=== PATIENT | male | born 1950 | race Caucasian/White ===

== ENCOUNTER → 2017-06-18 | Outpatient (CLI) | payer BC, OTHER ==
[~2017-06-18] MED LIST: ALEN70TA5; CITA20TA5; DIVA500T9; HYDR-2762; HYDR25TA9; LEVE500T6; LOSA100T6; OMEP20CA9; PROP20TA
--- NOTE | 2017-06-18 12:12 | RAD ---
CT chest Indication: Lung nodule Technique: CT chest without IV contrast with multiplanar reformats. Comparison: CT chest from 02/19/2016. Findings: Heart is normal in size. No pericardial or pleural effusion. Coronary artery calcifications noted. Neck base is clear. No axillary, mediastinal or hilar adenopathy. Breathing motion identified in the lungs limiting optimal evaluation. Calcified granuloma left lower lobe. Stable 3 mm nodule in the right upper lobe (series 3 image 130). Scattered areas of subpleural scarring noted for example (series 3 image 166) in the right middle lobe.. 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 Visualized noncontrast appearance of the spleen, pancreas, gallbladder, adrenal glands and kidneys is within normal limits. Diffuse osteopenia of the bones. Multiple stable compression deformities of the thoracic spine. No suspicious bony lesion. Impression: 1. Stable right lower lobe (3 mm) pulmonary nodule. According to Fleischner society recommendation, in a low risk patient no follow-up recommended. In a high-risk patient CT chest at 12 months recommended. 2. 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 3. Stable multiple compression deformities in the thoracic spine. Diffuse osteopenia. PQRS Compliance Statement: One or more of the following individualized dose reduction techniques were utilized for this examination: 1. Automated exposure control 2. Adjustment of the mA and/or kV according to patient size 3. Use of iterative reconstruction technique
== END | disposition home or self-care (01) ==
LOC: CT 11:59
PROVIDERS: ATTEND Internal Medicine Pulmonary Disease
DX: M85.80 Other specified disorders of bone density and structure, unspecified site (principal); I25.10 Atherosclerotic heart disease of native coronary artery without angina pectoris
CPT/HCPCS: 71250

== ENCOUNTER 2017-07-26 13:58 | Inpatient (IN) | payer BC, OTHER ==
[~2017-07-26] VITALS: Ht 165.1 cm; Wt 94.5 kg
--- NOTE | 2017-07-26 15:29 | PHYS DOC ---
Past Medical History Past Medical History: Depression, Hypertension, Seizure Additional Past Medical Histor: tremors Past Surgical History: Appendectomy Alcohol Use: Heavy Drug Use: None Adult General Chief Complaint Chief Complaint: ABDOMINAL PAIN HPI HPI Patient is a 66 year old male who presents with 48 hour history gradual onset moderate severity of epigastric and right upper quadrant abdominal pain with nausea and vomiting no diarrhea no hematemesis. Denies urinary symptoms. Denies fever. Chest pain or shortness of breath. Daily drinker of alcohol history of appendectomy. Seen by PCP and referred to the ER. Review of Systems Review of Systems Constitutional: Denies fever or chills [] Eyes: Denies change in visual acuity, redness, or eye pain [] HENT: Denies nasal congestion or sore throat [] Respiratory: Denies cough or shortness of breath [] Cardiovascular: No additional information not addressed in HPI [] GI: Denies abdominal pain, nausea, vomiting, bloody stools or diarrhea [] : Denies dysuria or hematuria [] Musculoskeletal: Denies back pain or joint pain [] Integument: Denies rash or skin lesions [] Neurologic: Denies headache, focal weakness or sensory changes [] Endocrine: Denies polyuria or polydipsia [] All other systems were reviewed and found to be within normal limits, except as documented in this note. Current Medications Current Medications Current Medications Medications (Trade) Dose Ordered Sig/Gema Start Time Stop Time Status Last Admin Dose Admin Hydromorphone HCl (Dilaudid) 1 mg 1X ONCE 07/26/17 15:30 07/26/17 15:32 DC 07/26/17 16:43 1 MG Info (Do NOT chart on this entry -- for MONITORING) 1 each PRN DAILY PRN 07/26/17 16:00 07/28/17 15:59 Iohexol (Omnipaque 300 Mg/ml) 75 ml 1X ONCE 07/26/17 16:00 07/26/17 16:01 DC 07/26/17 16:23 75 ML Morphine Sulfate 4 mg PRN Q2HR PRN 07/26/17 18:00 07/27/17 17:59 DC 07/27/17 10:38 4 MG Ondansetron HCl (Zofran) 4 mg PRN Q8HRS PRN 07/26/17 18:00 07/27/17 17:59 DC 07/27/17 08:36 4 MG Pantoprazole Sodium (Protonix Vial) 40 mg 1X ONCE 07/26/17 15:30 07/26/17 15:32 DC 07/26/17 16:42 40 MG Piperacillin Sod/ Tazobactam Sod (Zosyn) 3.375 gm 1X ONCE 07/26/17 17:15 07/26/17 17:16 DC 07/26/17 17:28 3.375 GM Piperacillin Sod/ Tazobactam Sod 3.375 gm/Dextrose 50 ml @ 100 mls/hr Q6HRS 07/26/17 18:00 UNV Sodium Chloride 1,000 ml @ 1,000 mls/hr 1X ONCE 07/26/17 15:30 07/26/17 16:29 DC 07/26/17 16:42 1,000 MLS/HR Allergies Allergies Allergies Coded Allergies Type Severity Reaction Last Updated Verified No Known Drug Allergies 08/04/16 No Physical Exam Physical Exam Constitutional: Well developed, well nourished, no acute distress, non-toxic appearance. [] HENT: Normocephalic, atraumatic, bilateral external ears normal, oropharynx moist, no oral exudates, nose normal. [] Eyes: PERRLA, EOMI, conjunctiva normal, no discharge. [] Neck: Normal range of motion, no tenderness, supple, no stridor. [] Cardiovascular:Heart rate regular rhythm, no murmur [] Lungs & Thorax: Bilateral breath sounds clear to auscultation [] Abdomen: Bowel sounds normal, soft, moderate right upper quadrant and epigastric tenderness, no masses, no pulsatile masses. [] Skin: Warm, dry, no erythema, no rash. [] Back: No tenderness, no CVA tenderness. [] Extremities: No tenderness, no cyanosis, no clubbing, ROM intact, no edema. [] Neurologic: Alert and oriented X 3, normal motor function, normal sensory function, no focal deficits noted. [] Psychologic: Affect normal, judgement normal, mood normal. [] Current Patient Data Vital Signs Vital Signs Date Time Temp Pulse Resp B/P (MAP) Pulse Ox O2 Delivery O2 Flow Rate FiO2 07/26/17 17:00 72 19 130/68 (88) 94 Room Air 07/26/17 14:15 98.5 98.5 Lab Values Laboratory Tests Test 07/26/17 14:25 White Blood Count 25.2 x10^3/uL (4.0-11.0) H Red Blood Count 5.20 x10^6/uL (4.30-5.70) Hemoglobin 16.4 g/dL (13.0-17.5) Hematocrit 48.7 % (39.0-53.0) Mean Corpuscular Volume 94 fL (79-100) Mean Corpuscular Hemoglobin 32 pg (25-35) Mean Corpuscular Hemoglobin Concent 34 g/dL (31-37) Red Cell Distribution Width 14.4 % (11.5-14.5) Platelet Count 191 x10^3/uL (140-400) Neutrophils (%) (Auto) 86 % (31-73) H Lymphocytes (%) (Auto) 4 % (24-48) L Monocytes (%) (Auto) 10 % (0-9) H Eosinophils (%) (Auto) 0 % (0-3) Basophils (%) (Auto) 0 % (0-3) Neutrophils # (Auto) 21.6 x10^3uL (1.8-7.7) H Lymphocytes # (Auto) 1.0 x10^3/uL (1.0-4.8) Monocytes # (Auto) 2.5 x10^3/uL (0.0-1.1) H Eosinophils # (Auto) 0.0 x10^3/uL (0.0-0.7) Basophils # (Auto) 0.0 x10^3/uL (0.0-0.2) Segmented Neutrophils % 78 % (35-66) H Band Neutrophils % 12 % (0-9) H Lymphocytes % 4 % (24-48) L Monocytes % 6 % (0-10) Platelet Estimate Adequate (ADEQUATE) Sodium Level 137 mmol/L (136-145) Potassium Level 4.1 mmol/L (3.5-5.1) Chloride Level 99 mmol/L (98-107) Carbon Dioxide Level 25 mmol/L (21-32) Anion Gap 13 (6-14) Blood Urea Nitrogen 22 mg/dL (8-26) Creatinine 1.0 mg/dL (0.7-1.3) Estimated GFR (Cockcroft-Gault) 74.8 BUN/Creatinine Ratio 22 (6-20) H Glucose Level 110 mg/dL (70-99) H Calcium Level 9.7 mg/dL (8.5-10.1) Total Bilirubin 1.5 mg/dL (0.2-1.0) H Aspartate Amino Transferase (AST) 21 U/L (15-37) Alanine Aminotransferase (ALT) 19 U/L (16-63) Alkaline Phosphatase 116 U/L (46-116) Troponin I Quantitative < 0.017 ng/mL (0.000-0.055) Total Protein 7.8 g/dL (6.4-8.2) Albumin 3.5 g/dL (3.4-5.0) Albumin/Globulin Ratio 0.8 (1.0-1.7) L Lipase 104 U/L (73-393) Laboratory Tests 07/26/17 14:25 Laboratory Tests 07/26/17 14:25 Microbiology 07/26/17 Blood Culture - Preliminary, Resulted NO GROWTH AFTER 1 DAY EKG EKG [] Radiology/Procedures Radiology/Procedures [] Course & Med Decision Making Course & Med Decision Making Pertinent Labs and Imaging studies reviewed. (See chart for details) Reexamination pain has improved somewhat. CT scan ultrasound consistent with likely cholecystitis given gallbladder sludge location of pain and some inflammatory changes in that area. Discussed case with Dr. Velasco who has agreed to admit the patient. He has requested I put in consults for general surgery, infectious disease, and GI. [] Dragon Disclaimer Dragon Disclaimer This electronic medical record was generated, in whole or in part, using a voice recognition dictation system. Departure Departure Impression: Primary Impression: Cholecystitis Additional Impressions: Abdominal pain Gastritis Leukocytosis Disposition: ADMITTED INPATIENT Condition: STABLE Referrals: ZOEY VELASCO MD (PCP) Problem Qualifiers MILKA SCHAEFER MD Jul 26, 2017 15:29
[2017-07-26] MEDS ORDERED: HYDROmorphone 2 MG/ML VIAL IV ONE (15:30)
[2017-07-26] MEDS ORDERED: IV NORMAL SALINE 1000ML BAG 1,000 ML IV ONE (15:30)
[2017-07-26] MEDS ORDERED: ONDANSETRON PF 4 MG/2 ML VIAL. IV ONE (15:30)
[2017-07-26] MEDS ORDERED: PANTOPRAZOLE IV PUSH 40 MG VIAL. IVP ONE (15:30)
[2017-07-26 15:42] LABS: BASO % 0 % (0-3); EOS % 0 % (0-3); HEMATOCRIT 48.7 % (39.0-53.0); HEMOGLOBIN 16.4 g/dL (13.0-17.5); LYMPH % 4 % (24-48); MEAN CORPUSCULAR HEMOGLOBIN 32 pg (25-35); MEAN CORPUSCULAR HGB CONC 34 g/dL (31-37); MEAN CORPUSCULAR VOLUME 94 fL (79-100); MONO % 10 % (0-9); NEUT % 86 % (31-73); PLATELET COUNT 191 x10^3/uL (140-400); RED CELL DISTRIBUTION WIDTH 14.4 % (11.5-14.5); WHITE BLOOD COUNT 25.2 x10^3/uL (4.0-11.0)
[2017-07-26 15:52] LABS: CALCIUM 9.7 mg/dL (8.5-10.1); GFR 74.8; POTASSIUM 4.1 mmol/L (3.5-5.1)
[2017-07-26 15:57] LABS: ALBUMIN 3.5 g/dL (3.4-5.0); ALBUMIN/GLOBULIN RATIO 0.8 (1.0-1.7); TOTAL BILIRUBIN 1.5 mg/dL (0.2-1.0); TOTAL PROTEIN 7.8 g/dL (6.4-8.2)
[2017-07-26] MEDS ORDERED: CONTRAST GIVEN MC PRN (16:00)
[2017-07-26] MEDS ORDERED: IOHEXOL 300 MG/ML 100ML VIAL. IV ONE (16:00)
--- NOTE | 2017-07-26 16:33 | RAD ---
Indication: Right upper quadrant pain. Technique: Right upper quadrant ultrasound was performed. No comparison is available. Findings: Pancreas is mostly obscured by bowel gas. IVC likewise is not well evaluated. Liver is increased in size, right hepatic lobe 17.3 cm longitudinal. It is also increased in echotexture. Gallbladder sludge is noted. The gallbladder wall was not thickened, 2 mm. There is no pericholecystic fluid and sonographic Tomlin sign is reported as negative. Mildly prominent common bile duct of 7 mm can be a normal finding in a patient of this age. Right kidney is without hydronephrosis or solid mass. 5.5 cm complex cyst is noted in the left kidney. Impression: 1. Gallbladder sludge. 2. Fatty infiltration of an enlarged liver. 3. Complex cystic lesion in the lower pole of the right kidney. Finding can be visualized on CTs back to May 2012, favoring benign etiology.
--- NOTE | 2017-07-26 16:43 | RAD ---
Indication: Upper abdominal pain for 3 to 4 days with nausea and vomiting. Technique: Axial images and coronal and sagittal reformatted images are provided. 75 mL of intravenous Omnipaque 300 was administered without complication. Comparison is from August 20, 2015. There is also an ultrasound from today. One or more of the following individualized dose reduction techniques were utilized for this examination: 1. Automated exposure control 2. Adjustment of the mA and/or kV according to patient size 3. Use of iterative reconstruction technique Findings: There is minimal atelectasis in the lung bases. There is no pleural effusion. Heart is not enlarged. Coronary artery calcifications are noted. There is fatty infiltration of the liver. There is gallbladder distention. There is stranding of the pericholecystic fat. There is also minimal pericholecystic fluid. These findings were not apparent by the ultrasound. Ultrasound was limited by body habitus. Spleen is not enlarged. Pancreas is without duct dilation. There is no adrenal mass. Probable cysts within both kidneys including a complicated right lower pole cyst are all stable. There is atheromatous disease in the abdominal aorta without aneurysm. There is no small bowel obstruction or mural thickening. There is questionable mural thickening in the hepatic flexure. There is fatty infiltration of the wall of the ascending colon and hepatic flexure. This can be a finding of chronic colitis. Similar finding is noted in the terminal ileum. Appendix is not definitely visualized. Bladder is unremarkable. Calcified phleboliths are noted. Free pelvic fluid may be related to the gallbladder findings. There are degenerative changes in the spine. Impression: 1. CT findings are concerning for acute cholecystitis with a reactive colitis in the hepatic flexure. On ultrasound, there was gallbladder sludge although no definite gallbladder wall thickening. Ultrasound was slightly limited by body habitus. Please correlate clinically. If further workup for acute cholecystitis is required, consider hepatobiliary scintigraphy. 2. Fatty infiltration of the mildly enlarged liver. 3. Cystic lesions in the kidneys appear similar to prior.
[2017-07-26] MEDS ORDERED: PIPERACILLIN/TAZO IV Push 3.375 GM VIAL. IVP ONE (17:15)
[2017-07-26] MEDS ORDERED: PIPERACILLIN/TAZOBACTAM 3.375 GM in IV DEXTROSE 5% 50 ML IV ONE (17:15)
[2017-07-26 17:26] LABS: PLT ESTIMATE ADEQUATE (ADEQUATE)
[2017-07-26] MEDS ORDERED: ONDANSETRON PF 4 MG/2 ML VIAL. IV PRN (18:00)
[2017-07-26] MEDS ORDERED: PIPERACILLIN/TAZOBACTAM 3.375 GM in IV DEXTROSE 5% 50 ML IV SCH (18:00)
[2017-07-26] MEDS ORDERED: POTASSIUM CL 20MEQ D5-0.45NACL 1,000 ML IV ONE (18:30)
--- NOTE | 2017-07-26 18:41 | EKG ---
[facility] [address] [place] [address] Test Date: 2017-07-26 Test Time: 16:46:04 Pat Name: CLAY MAHER Department: Room: Gender: M Spoon Maker: : [id number] Requested By: MILKA SCHAEFER Order Number: [id number] Reading MD: Saw Smart MD Measurements Intervals [place] Rate: 75 P: 0 OK: 190 QRS: 11 QRSD: 84 T: 28 QT: 390 QTc: 438 Interpretive Statements SINUS RHYTHM BASELINE ARTIFACT NON-SPECIFIC ST/T CHANGES Electronically Signed On 07-27-2017 15:16:57 [employer] HE[employer]GER by Saw Smart MD
[2017-07-26 20:30] VITALS: BP 142/82
[2017-07-26] MEDS: FAMOTIDINE 20 MG/2 ML VIAL IVP SCH (20:48)
[2017-07-26] MEDS ORDERED: OMEP40CA5 PO (21:54)
[2017-07-26] MEDS ORDERED: CITA20TA5 PO (21:54)
[2017-07-26] MEDS ORDERED: CHOL2000 PO (21:54)
[2017-07-26] MEDS ORDERED: LOSA100T6 PO (21:54)
[2017-07-26] MEDS ORDERED: ASPI-630 PO (21:54)
[2017-07-26] MEDS ORDERED: CARV6.252 PO (21:54)
[2017-07-26] MEDS ORDERED: LEVE500T56 PO (21:54)
[2017-07-26] MEDS ORDERED: diphenhydrAMINE HCL 25 MG CAPSULE PO PRN (23:15)
[2017-07-26] MEDS: PIPERACILLIN/TAZO IV Push 3.375 GM VIAL. IVP SCH (23:22)
[2017-07-26 23:45] VITALS: BP 112/76
[2017-07-27 03:45] VITALS: BP 121/75
[2017-07-27] MEDS: PIPERACILLIN/TAZO IV Push 3.375 GM VIAL. IVP SCH ×3 (05:18→20:51)
[2017-07-27 06:04] LABS: BASO # 0.1 x10^3/uL (0.0-0.2); BASO % 0 % (0-3); EOS % 0 % (0-3); HEMATOCRIT 43.6 % (39.0-53.0); HEMOGLOBIN 14.6 g/dL (13.0-17.5); LYMPH % 4 % (24-48); MEAN CORPUSCULAR HEMOGLOBIN 32 pg (25-35); MEAN CORPUSCULAR HGB CONC 33 g/dL (31-37); MEAN CORPUSCULAR VOLUME 95 fL (79-100); MONO % 9 % (0-9); NEUT % 86 % (31-73); PLATELET COUNT 148 x10^3/uL (140-400); RED BLOOD COUNT 4.61 x10^6/uL (4.30-5.70); RED CELL DISTRIBUTION WIDTH 14.6 % (11.5-14.5); WHITE BLOOD COUNT 23.3 x10^3/uL (4.0-11.0)
[2017-07-27 06:21] LABS: ALBUMIN 2.7 g/dL (3.4-5.0); ALBUMIN/GLOBULIN RATIO 0.6 (1.0-1.7); CALCIUM 8.7 mg/dL (8.5-10.1); GFR 74.8; POTASSIUM 3.6 mmol/L (3.5-5.1); TOTAL BILIRUBIN 1.3 mg/dL (0.2-1.0); TOTAL PROTEIN 6.9 g/dL (6.4-8.2)
[2017-07-27 07:26] VITALS: BP 117/76
[2017-07-27] MEDS: FAMOTIDINE 20 MG/2 ML VIAL IVP SCH ×2 (08:28→20:56)
[2017-07-27] MEDS: MORPHINE SULFATE 4 MG/ML DISP.SYRIN. IV PRN ×2 (08:36→10:38)
--- NOTE | 2017-07-27 09:26 | PDOC ---
Infectious Disease Note ROS ROS Vital Sign Vital Signs Vital Signs Date Time Temp Pulse Resp B/P (MAP) Pulse Ox O2 Delivery O2 Flow Rate FiO2 07/27/17 08:36 94 Room Air 07/27/17 03:45 100.4 84 20 121/75 (90) 100.4 Labs Lab Laboratory Tests Test 07/26/17 14:25 07/26/17 21:20 07/27/17 04:50 White Blood Count 25.2 x10^3/uL (4.0-11.0) 23.3 x10^3/uL (4.0-11.0) Red Blood Count 5.20 x10^6/uL (4.30-5.70) 4.61 x10^6/uL (4.30-5.70) Hemoglobin 16.4 g/dL (13.0-17.5) 14.6 g/dL (13.0-17.5) Hematocrit 48.7 % (39.0-53.0) 43.6 % (39.0-53.0) Mean Corpuscular Volume 94 fL (79-100) 95 fL (79-100) Mean Corpuscular Hemoglobin 32 pg (25-35) 32 pg (25-35) Mean Corpuscular Hemoglobin Concent 34 g/dL (31-37) 33 g/dL (31-37) Red Cell Distribution Width 14.4 % (11.5-14.5) 14.6 % (11.5-14.5) Platelet Count 191 x10^3/uL (140-400) 148 x10^3/uL (140-400) Neutrophils (%) (Auto) 86 % (31-73) 86 % (31-73) Lymphocytes (%) (Auto) 4 % (24-48) 4 % (24-48) Monocytes (%) (Auto) 10 % (0-9) 9 % (0-9) Eosinophils (%) (Auto) 0 % (0-3) 0 % (0-3) Basophils (%) (Auto) 0 % (0-3) 0 % (0-3) Neutrophils # (Auto) 21.6 x10^3uL (1.8-7.7) 20.0 x10^3uL (1.8-7.7) Lymphocytes # (Auto) 1.0 x10^3/uL (1.0-4.8) 1.0 x10^3/uL (1.0-4.8) Monocytes # (Auto) 2.5 x10^3/uL (0.0-1.1) 2.2 x10^3/uL (0.0-1.1) Eosinophils # (Auto) 0.0 x10^3/uL (0.0-0.7) 0.0 x10^3/uL (0.0-0.7) Basophils # (Auto) 0.0 x10^3/uL (0.0-0.2) 0.1 x10^3/uL (0.0-0.2) Segmented Neutrophils % 78 % (35-66) Band Neutrophils % 12 % (0-9) Lymphocytes % 4 % (24-48) Monocytes % 6 % (0-10) Platelet Estimate Adequate (ADEQUATE) Sodium Level 137 mmol/L (136-145) 136 mmol/L (136-145) Potassium Level 4.1 mmol/L (3.5-5.1) 3.6 mmol/L (3.5-5.1) Chloride Level 99 mmol/L (98-107) 103 mmol/L (98-107) Carbon Dioxide Level 25 mmol/L (21-32) 26 mmol/L (21-32) Anion Gap 13 (6-14) 7 (6-14) Blood Urea Nitrogen 22 mg/dL (8-26) 25 mg/dL (8-26) Creatinine 1.0 mg/dL (0.7-1.3) 1.0 mg/dL (0.7-1.3) Estimated GFR (Cockcroft-Gault) 74.8 74.8 BUN/Creatinine Ratio 22 (6-20) 25 (6-20) Glucose Level 110 mg/dL (70-99) 111 mg/dL (70-99) Calcium Level 9.7 mg/dL (8.5-10.1) 8.7 mg/dL (8.5-10.1) Total Bilirubin 1.5 mg/dL (0.2-1.0) 1.3 mg/dL (0.2-1.0) Aspartate Amino Transf (AST/SGOT) 21 U/L (15-37) 16 U/L (15-37) Alanine Aminotransferase (ALT/SGPT) 19 U/L (16-63) 16 U/L (16-63) Alkaline Phosphatase 116 U/L (46-116) 89 U/L (46-116) Troponin I Quantitative < 0.017 ng/mL (0.000-0.055) Total Protein 7.8 g/dL (6.4-8.2) 6.9 g/dL (6.4-8.2) Albumin 3.5 g/dL (3.4-5.0) 2.7 g/dL (3.4-5.0) Albumin/Globulin Ratio 0.8 (1.0-1.7) 0.6 (1.0-1.7) Lipase 104 U/L (73-393) Lactic Acid Level 0.9 mmol/L (0.4-2.0) Objective Assessment Fever Leukocytosis Probable acute Cholecystitis (? alcalculous) - F/n/V/RUQ Abd pain Colitis H/o C-diff 08/02/2015 ETOH abuse Plan Plan of Care Cont Zosyn Add IV Flagyl Await Surgical Eval F/u labs and cults Thank you # [phone] IDA TOVAR MD Jul 27, 2017 09:26
--- NOTE | 2017-07-27 09:36 | PDOC2 ---
GI CONSULT Reason For Consult: Abd pain, ETOH daily, gastritis HPI: HPI: 66 y/o male w/ right-sided/periumbilical and epigastric pain associated w/ n/v x 2-3 days. Unable to take PO x 2 days. Found w/ leukocytosis w/ fever (100.4) . Imaging concerning for cholecystitis, surgical consult pending. Has IV atbx and IV H2 manny ordered. H/o GERD and impacted food bolus (removed 07/[address] Patel). At that time, EGD noted reflux esophagitis, normal stomach, and normal duodenum. Now occasional dysphagia w/ solids. Still taking PPI QD (omeprazole). Frequent stooling, usually related to eating. No hematemesis, hematochezia, melena. No weight loss. Last colonoscopy >10 years ago. PMH: PMH: HTN, epilepsy (last seizure >1 year ago), COPD, GERD, depression, fatty liver, appendectomy FH: Family History: No pertinent hx Social History: Smoke: <1 pack per day ALCOHOL: other (2-3 whiskeys daily) Drugs: None ROS: GEN: +sweats HEENT: Denies blurred vision, sore throat CV: Denies chest pain RESP: Denies shortness of air, cough GI: Per HPI : Denies hematuria, dysuria ENDO: Denies weight changes NEURO: Denies confusion, dizziness MSK: Denies weakness, joint pain/swelling SKIN: Denies jaundice, pruritus Vitals: Vitals: Vital Signs Date Time Temp Pulse Resp B/P (MAP) Pulse Ox O2 Delivery O2 Flow Rate FiO2 07/27/17 08:36 94 Room Air 07/27/17 07:26 98.7 87 20 117/76 (90) 98.7 Labs: Labs: Laboratory Tests Test 07/26/17 14:25 07/26/17 21:20 07/27/17 04:50 White Blood Count 25.2 x10^3/uL (4.0-11.0) 23.3 x10^3/uL (4.0-11.0) Red Blood Count 5.20 x10^6/uL (4.30-5.70) 4.61 x10^6/uL (4.30-5.70) Hemoglobin 16.4 g/dL (13.0-17.5) 14.6 g/dL (13.0-17.5) Hematocrit 48.7 % (39.0-53.0) 43.6 % (39.0-53.0) Mean Corpuscular Volume 94 fL (79-100) 95 fL (79-100) Mean Corpuscular Hemoglobin 32 pg (25-35) 32 pg (25-35) Mean Corpuscular Hemoglobin Concent 34 g/dL (31-37) 33 g/dL (31-37) Red Cell Distribution Width 14.4 % (11.5-14.5) 14.6 % (11.5-14.5) Platelet Count 191 x10^3/uL (140-400) 148 x10^3/uL (140-400) Neutrophils (%) (Auto) 86 % (31-73) 86 % (31-73) Lymphocytes (%) (Auto) 4 % (24-48) 4 % (24-48) Monocytes (%) (Auto) 10 % (0-9) 9 % (0-9) Eosinophils (%) (Auto) 0 % (0-3) 0 % (0-3) Basophils (%) (Auto) 0 % (0-3) 0 % (0-3) Neutrophils # (Auto) 21.6 x10^3uL (1.8-7.7) 20.0 x10^3uL (1.8-7.7) Lymphocytes # (Auto) 1.0 x10^3/uL (1.0-4.8) 1.0 x10^3/uL (1.0-4.8) Monocytes # (Auto) 2.5 x10^3/uL (0.0-1.1) 2.2 x10^3/uL (0.0-1.1) Eosinophils # (Auto) 0.0 x10^3/uL (0.0-0.7) 0.0 x10^3/uL (0.0-0.7) Basophils # (Auto) 0.0 x10^3/uL (0.0-0.2) 0.1 x10^3/uL (0.0-0.2) Segmented Neutrophils % 78 % (35-66) Band Neutrophils % 12 % (0-9) Lymphocytes % 4 % (24-48) Monocytes % 6 % (0-10) Platelet Estimate Adequate (ADEQUATE) Sodium Level 137 mmol/L (136-145) 136 mmol/L (136-145) Potassium Level 4.1 mmol/L (3.5-5.1) 3.6 mmol/L (3.5-5.1) Chloride Level 99 mmol/L (98-107) 103 mmol/L (98-107) Carbon Dioxide Level 25 mmol/L (21-32) 26 mmol/L (21-32) Anion Gap 13 (6-14) 7 (6-14) Blood Urea Nitrogen 22 mg/dL (8-26) 25 mg/dL (8-26) Creatinine 1.0 mg/dL (0.7-1.3) 1.0 mg/dL (0.7-1.3) Estimated GFR (Cockcroft-Gault) 74.8 74.8 BUN/Creatinine Ratio 22 (6-20) 25 (6-20) Glucose Level 110 mg/dL (70-99) 111 mg/dL (70-99) Calcium Level 9.7 mg/dL (8.5-10.1) 8.7 mg/dL (8.5-10.1) Total Bilirubin 1.5 mg/dL (0.2-1.0) 1.3 mg/dL (0.2-1.0) Aspartate Amino Transf (AST/SGOT) 21 U/L (15-37) 16 U/L (15-37) Alanine Aminotransferase (ALT/SGPT) 19 U/L (16-63) 16 U/L (16-63) Alkaline Phosphatase 116 U/L (46-116) 89 U/L (46-116) Troponin I Quantitative < 0.017 ng/mL (0.000-0.055) Total Protein 7.8 g/dL (6.4-8.2) 6.9 g/dL (6.4-8.2) Albumin 3.5 g/dL (3.4-5.0) 2.7 g/dL (3.4-5.0) Albumin/Globulin Ratio 0.8 (1.0-1.7) 0.6 (1.0-1.7) Lipase 104 U/L (73-393) Lactic Acid Level 0.9 mmol/L (0.4-2.0) Allergies: Coded Allergies: No Known Drug Allergies (Unverified , 08/04/16) Medications: Current Medications Medications (Trade) Dose Ordered Sig/Gema Route PRN Reason Start Time Stop Time Status Last Admin Dose Admin Sodium Chloride 1,000 ml @ 1,000 mls/hr 1X ONCE IV 07/26/17 15:30 07/26/17 16:29 DC 07/26/17 16:42 Hydromorphone HCl (Dilaudid) 1 mg 1X ONCE IV 07/26/17 15:30 07/26/17 15:32 DC 07/26/17 16:43 Ondansetron HCl (Zofran) 4 mg 1X ONCE IV 07/26/17 15:30 07/26/17 15:32 DC 07/26/17 16:43 Pantoprazole Sodium (Protonix Vial) 40 mg 1X ONCE IVP 07/26/17 15:30 07/26/17 15:32 DC 07/26/17 16:42 Iohexol (Omnipaque 300 Mg/ml) 75 ml 1X ONCE IV 07/26/17 16:00 07/26/17 16:01 DC 07/26/17 16:23 Piperacillin Sod/ Tazobactam Sod (Zosyn) 3.375 gm 1X ONCE IVP 07/26/17 17:15 07/26/17 17:16 DC 07/26/17 17:28 Ondansetron HCl (Zofran) 4 mg PRN Q8HRS PRN IV NAUSEA/VOMITING 07/26/17 18:00 07/27/17 17:59 07/27/17 08:36 Morphine Sulfate 4 mg PRN Q2HR PRN IV PAIN 07/26/17 18:00 07/27/17 17:59 07/27/17 08:36 Potassium Chloride/Dextrose/ Sod Cl 1,000 ml @ 120 mls/hr 1X ONCE IV 07/26/17 18:30 07/27/17 02:49 DC 07/26/17 18:52 Famotidine (Pepcid Vial) 20 mg Q12HR IVP 07/26/17 21:00 07/27/17 08:28 Piperacillin Sod/ Tazobactam Sod (Zosyn) 3.375 gm Q6HRS IVP 07/27/17 00:00 07/27/17 05:18 Diphenhydramine HCl (Benadryl) 25 mg PRN QHS PRN PO INSOMNIA 07/26/17 23:15 07/26/17 23:21 Imaging: Imaging: RUQ US Impression: 1. Gallbladder sludge. 2. Fatty infiltration of an enlarged liver. 3. Complex cystic lesion in the lower pole of the right kidney. Finding can be visualized on CTs back to May 2012, favoring benign etiology. CT A/P Impression: 1. CT findings are concerning for acute cholecystitis with a reactive colitis in the hepatic flexure. On ultrasound, there was gallbladder sludge although no definite gallbladder wall thickening. Ultrasound was slightly limited by body habitus. Please correlate clinically. If further workup for acute cholecystitis is required, consider hepatobiliary scintigraphy. 2. Fatty infiltration of the mildly enlarged liver. 3. Cystic lesions in the kidneys appear similar to prior. PE: GEN: uncomfortable HEENT: Atraumatic, PERRL LUNGS: CTAB HEART: RRR ABD: quiet, distended, right periumbilical tenderness to light touch EXTREMITY: No edema SKIN: sweaty NEURO/PSYCH: A & O 3 A/P: A/P: Abd pain, n/v Leukocytosis, fever GB sludge, possible cholecystitis GERD - on PPI, last EGD for impacted food bolus 1 year ago CRC screen - last colonoscopy >10 years ago -- Await surgical thoughts. TONG DAMON Jul 27, 2017 09:36
--- NOTE | 2017-07-27 10:18 | PDOC2 ---
RYLIE FINN ELEVATOR MECHANIC APPRENTICE 07/27/17 1018: CONSULT Date of Consult Date of Consult DATE: 07/27/17 TIME: 10:10 Reason for Consult Reason for Consult: cholecystitis Referring Physician Referring Physician: ER Identification/Chief Complaint Chief Complaint abdominal pain Problems: Source Source: Chart review, Patient History of Present Illness Reason for Visit: 3 day hx of right sided abdominal pain. Has not been able to keep any PO down for 2 days. No hematemesis, no weight loss. Denies similar symptoms in past. Loose stool x 1 daily, chronic Past Medical History Cardiovascular: HTN Pulmonary: COPD CENTRAL NERVOUS SYSTEM: Seizure GI: GERD Psych: Depression Past Surgical History Past Surgical History: Appendectomy Family History Family History: Other (noncontributory to current illness ) Social History <1 pack per day ALCOHOL: other (2-3 whiskeys daily) Drugs: None Current Problem List Problem List Problems Medical Problems: (1) Abdominal pain Status: Acute (2) Cholecystitis Status: Acute (3) Gastritis Status: Acute (4) Leukocytosis Status: Acute Current Medications Current Medications Current Medications Sodium Chloride 1,000 ml @ 1,000 mls/hr 1X ONCE IV Last administered on 07/26 16:42; Start 07/26/17 at 15:30; Stop 07/26/17 at 16:29; Status DC Hydromorphone HCl (Dilaudid) 1 mg 1X ONCE IV Last administered on 07/26/17 16:43; Start 07/26/17 at 15:30; Stop 07/26/17 at 15:32; Status DC Ondansetron HCl (Zofran) 4 mg 1X ONCE IV Last administered on 07/26/17 16:43 ; Start 07/26/17 at 15:30; Stop 07/26/17 at 15:32; Status DC Pantoprazole Sodium (Protonix Vial) 40 mg 1X ONCE IVP Last administered on 16:42; Start 07/26/17 at 15:30; Stop 07/26/17 at 15:32; Status DC Iohexol (Omnipaque 300 Mg/ml) 75 ml 1X ONCE IV Last administered on 16:23; Start 07/26/17 at 16:00; Stop 07/26/17 at 16:01; Status DC Info (Do NOT chart on this entry -- for MONITORING) 1 each PRN DAILY PRN MC SEE COMMENTS; Start 07/26/17 at 16:00; Stop 07/28/17 at 15:59 Piperacillin Sod/ Tazobactam Sod 3.375 gm/Dextrose 50 ml @ 100 mls/hr 1X ONCE IV ; Start 07/26/17 at 17:15; Stop 07/26/17 at 17:44; Status UNV Piperacillin Sod/ Tazobactam Sod (Zosyn) 3.375 gm 1X ONCE IVP Last administered on 07/26/17 17:28; Start 07/26/17 at 17:15; Stop 07/26/17 at 17 :16; Status DC Ondansetron HCl (Zofran) 4 mg PRN Q8HRS PRN IV NAUSEA/VOMITING Last administered on 07/27/17 08:36; Start 07/26/17 at 18:00; Stop 07/27/17 at 17 :59 Morphine Sulfate 4 mg PRN Q2HR PRN IV PAIN Last administered on 07/27/17 08: 36; Start 07/26/17 at 18:00; Stop 07/27/17 at 17:59 Piperacillin Sod/ Tazobactam Sod 3.375 gm/Dextrose 50 ml @ 100 mls/hr Q6HRS IV ; Start 07/26/17 at 18:00; Status UNV Potassium Chloride/Dextrose/ Sod Cl 1,000 ml @ 120 mls/hr 1X ONCE IV Last administered on 07/26/17 18:52; Start 07/26/17 at 18:30; Stop 07/27/17 at 02 :49; Status DC Famotidine (Pepcid Vial) 20 mg Q12HR IVP Last administered on 07/27/17 08:28 ; Start 07/26/17 at 21:00 Piperacillin Sod/ Tazobactam Sod (Zosyn) 3.375 gm Q6HRS IVP Last administered on 07/27/17 05:18; Start 07/27/17 at 00:00 Diphenhydramine HCl (Benadryl) 25 mg PRN QHS PRN PO INSOMNIA Last administered on 07/26/17 23:21; Start 07/26/17 at 23:15 Metronidazole 100 ml @ 100 mls/hr Q8HRS IV ; Start 07/27/17 at 10:00 Active Scripts Active Reported Keppra (Levetiracetam) 500 Mg Tablet 500 Mg PO BID Citalopram Hbr (Citalopram Hydrobromide) 20 Mg Tablet 1 Tab PO DAILY Omeprazole 40 Mg Capsule.dr 1 Cap PO DAILY Losartan Potassium 100 Mg Tablet 100 Mg PO DAILY Carvedilol 6.25 Mg Tablet 1 Tab PO BID Aspirin 81 Mg Tab.chew 1 Tab PO DAILY Vitamin D (Cholecalciferol (Vitamin D3)) 2,000 Unit Capsule 1 Cap PO DAILY Allergies Allergies: Coded Allergies: No Known Drug Allergies (Unverified , 08/04/16) ROS General: YES: Other (+ fevers, low grade), No: Chills PSYCHOLOGICAL ROS: No: Anxiety, Depression Eyes: No Blurry vision, No Double vision HEENT: No: Heacaches, Sore Throat Hematological and Lymphatic: No: Bleeding Problems, Blood Clots Respiratory: YES: Shortness of breath, No: Cough Cardiovascular: No Chest Pain, No Palpitations Gastrointestinal: Yes Other (see hpi) Genitourinary: No Dysuria, No Hematuria Musculoskeletal: No Joint Pain, No Muscle Pain Neurological: No Impaired Coord/balance, No Numbness/Tingling Skin: No Pruritus, No Rash Physical Exam General: Alert, Oriented X3, Cooperative, No acute distress HEENT: PERRLA, Mucous membr. moist/pink Lungs: Clear to auscultation, Normal air movement Heart: Regular rate, Normal S1, Normal S2, No murmurs Abdomen: Soft, Other (RUQ, epigastric, RLQ--moderate tenderness, no rebound) Extremities: No clubbing, No cyanosis Skin: No rashes, No breakdown Neuro: Normal gait, Normal speech Psych/Mental Status: Mental status NL, Mood NL MUSCULOSKELETAL: No deformity, No swelling Vitals VITALS Vital Signs Date Time Temp Pulse Resp B/P (MAP) Pulse Ox O2 Delivery O2 Flow Rate FiO2 07/27/17 09:06 94 Room Air 07/27/17 07:26 98.7 87 20 117/76 (90) 98.7 Labs Labs Laboratory Tests Test 07/26/17 14:25 07/26/17 21:20 07/27/17 04:50 White Blood Count 25.2 x10^3/uL (4.0-11.0) 23.3 x10^3/uL (4.0-11.0) Red Blood Count 5.20 x10^6/uL (4.30-5.70) 4.61 x10^6/uL (4.30-5.70) Hemoglobin 16.4 g/dL (13.0-17.5) 14.6 g/dL (13.0-17.5) Hematocrit 48.7 % (39.0-53.0) 43.6 % (39.0-53.0) Mean Corpuscular Volume 94 fL (79-100) 95 fL (79-100) Mean Corpuscular Hemoglobin 32 pg (25-35) 32 pg (25-35) Mean Corpuscular Hemoglobin Concent 34 g/dL (31-37) 33 g/dL (31-37) Red Cell Distribution Width 14.4 % (11.5-14.5) 14.6 % (11.5-14.5) Platelet Count 191 x10^3/uL (140-400) 148 x10^3/uL (140-400) Neutrophils (%) (Auto) 86 % (31-73) 86 % (31-73) Lymphocytes (%) (Auto) 4 % (24-48) 4 % (24-48) Monocytes (%) (Auto) 10 % (0-9) 9 % (0-9) Eosinophils (%) (Auto) 0 % (0-3) 0 % (0-3) Basophils (%) (Auto) 0 % (0-3) 0 % (0-3) Neutrophils # (Auto) 21.6 x10^3uL (1.8-7.7) 20.0 x10^3uL (1.8-7.7) Lymphocytes # (Auto) 1.0 x10^3/uL (1.0-4.8) 1.0 x10^3/uL (1.0-4.8) Monocytes # (Auto) 2.5 x10^3/uL (0.0-1.1) 2.2 x10^3/uL (0.0-1.1) Eosinophils # (Auto) 0.0 x10^3/uL (0.0-0.7) 0.0 x10^3/uL (0.0-0.7) Basophils # (Auto) 0.0 x10^3/uL (0.0-0.2) 0.1 x10^3/uL (0.0-0.2) Segmented Neutrophils % 78 % (35-66) Band Neutrophils % 12 % (0-9) Lymphocytes % 4 % (24-48) Monocytes % 6 % (0-10) Platelet Estimate Adequate (ADEQUATE) Sodium Level 137 mmol/L (136-145) 136 mmol/L (136-145) Potassium Level 4.1 mmol/L (3.5-5.1) 3.6 mmol/L (3.5-5.1) Chloride Level 99 mmol/L (98-107) 103 mmol/L (98-107) Carbon Dioxide Level 25 mmol/L (21-32) 26 mmol/L (21-32) Anion Gap 13 (6-14) 7 (6-14) Blood Urea Nitrogen 22 mg/dL (8-26) 25 mg/dL (8-26) Creatinine 1.0 mg/dL (0.7-1.3) 1.0 mg/dL (0.7-1.3) Estimated GFR (Cockcroft-Gault) 74.8 74.8 BUN/Creatinine Ratio 22 (6-20) 25 (6-20) Glucose Level 110 mg/dL (70-99) 111 mg/dL (70-99) Calcium Level 9.7 mg/dL (8.5-10.1) 8.7 mg/dL (8.5-10.1) Total Bilirubin 1.5 mg/dL (0.2-1.0) 1.3 mg/dL (0.2-1.0) Aspartate Amino Transf (AST/SGOT) 21 U/L (15-37) 16 U/L (15-37) Alanine Aminotransferase (ALT/SGPT) 19 U/L (16-63) 16 U/L (16-63) Alkaline Phosphatase 116 U/L (46-116) 89 U/L (46-116) Troponin I Quantitative < 0.017 ng/mL (0.000-0.055) Total Protein 7.8 g/dL (6.4-8.2) 6.9 g/dL (6.4-8.2) Albumin 3.5 g/dL (3.4-5.0) 2.7 g/dL (3.4-5.0) Albumin/Globulin Ratio 0.8 (1.0-1.7) 0.6 (1.0-1.7) Lipase 104 U/L (73-393) Lactic Acid Level 0.9 mmol/L (0.4-2.0) Laboratory Tests Test 07/26/17 14:25 07/26/17 21:20 07/27/17 04:50 White Blood Count 25.2 x10^3/uL (4.0-11.0) 23.3 x10^3/uL (4.0-11.0) Red Blood Count 5.20 x10^6/uL (4.30-5.70) 4.61 x10^6/uL (4.30-5.70) Hemoglobin 16.4 g/dL (13.0-17.5) 14.6 g/dL (13.0-17.5) Hematocrit 48.7 % (39.0-53.0) 43.6 % (39.0-53.0) Mean Corpuscular Volume 94 fL (79-100) 95 fL (79-100) Mean Corpuscular Hemoglobin 32 pg (25-35) 32 pg (25-35) Mean Corpuscular Hemoglobin Concent 34 g/dL (31-37) 33 g/dL (31-37) Red Cell Distribution Width 14.4 % (11.5-14.5) 14.6 % (11.5-14.5) Platelet Count 191 x10^3/uL (140-400) 148 x10^3/uL (140-400) Neutrophils (%) (Auto) 86 % (31-73) 86 % (31-73) Lymphocytes (%) (Auto) 4 % (24-48) 4 % (24-48) Monocytes (%) (Auto) 10 % (0-9) 9 % (0-9) Eosinophils (%) (Auto) 0 % (0-3) 0 % (0-3) Basophils (%) (Auto) 0 % (0-3) 0 % (0-3) Neutrophils # (Auto) 21.6 x10^3uL (1.8-7.7) 20.0 x10^3uL (1.8-7.7) Lymphocytes # (Auto) 1.0 x10^3/uL (1.0-4.8) 1.0 x10^3/uL (1.0-4.8) Monocytes # (Auto) 2.5 x10^3/uL (0.0-1.1) 2.2 x10^3/uL (0.0-1.1) Eosinophils # (Auto) 0.0 x10^3/uL (0.0-0.7) 0.0 x10^3/uL (0.0-0.7) Basophils # (Auto) 0.0 x10^3/uL (0.0-0.2) 0.1 x10^3/uL (0.0-0.2) Segmented Neutrophils % 78 % (35-66) Band Neutrophils % 12 % (0-9) Lymphocytes % 4 % (24-48) Monocytes % 6 % (0-10) Platelet Estimate Adequate (ADEQUATE) Sodium Level 137 mmol/L (136-145) 136 mmol/L (136-145) Potassium Level 4.1 mmol/L (3.5-5.1) 3.6 mmol/L (3.5-5.1) Chloride Level 99 mmol/L (98-107) 103 mmol/L (98-107) Carbon Dioxide Level 25 mmol/L (21-32) 26 mmol/L (21-32) Anion Gap 13 (6-14) 7 (6-14) Blood Urea Nitrogen 22 mg/dL (8-26) 25 mg/dL (8-26) Creatinine 1.0 mg/dL (0.7-1.3) 1.0 mg/dL (0.7-1.3) Estimated GFR (Cockcroft-Gault) 74.8 74.8 BUN/Creatinine Ratio 22 (6-20) 25 (6-20) Glucose Level 110 mg/dL (70-99) 111 mg/dL (70-99) Calcium Level 9.7 mg/dL (8.5-10.1) 8.7 mg/dL (8.5-10.1) Total Bilirubin 1.5 mg/dL (0.2-1.0) 1.3 mg/dL (0.2-1.0) Aspartate Amino Transf (AST/SGOT) 21 U/L (15-37) 16 U/L (15-37) Alanine Aminotransferase (ALT/SGPT) 19 U/L (16-63) 16 U/L (16-63) Alkaline Phosphatase 116 U/L (46-116) 89 U/L (46-116) Troponin I Quantitative < 0.017 ng/mL (0.000-0.055) Total Protein 7.8 g/dL (6.4-8.2) 6.9 g/dL (6.4-8.2) Albumin 3.5 g/dL (3.4-5.0) 2.7 g/dL (3.4-5.0) Albumin/Globulin Ratio 0.8 (1.0-1.7) 0.6 (1.0-1.7) Lipase 104 U/L (73-393) Lactic Acid Level 0.9 mmol/L (0.4-2.0) Images Images reviewed imaging Assessment/Plan Assessment/Plan abdominal pain, leukocytosis, low grade fevers US with GB sludge, no cholecystitis--CT showing concerns for cholecystitis, reactive colitis fatty liver daily alcohol intake 3-4 whiskeys daily, obesity BMI 34.7, HTN, COPD, tobaccoism will review with Dr Archer, may consider HIDA to evaluate for acute cholecystitis JOEY ARCHER MD 07/27/17 1258: CONSULT Allergies Allergies: Coded Allergies: No Known Drug Allergies (Unverified , 08/04/16) Assessment/Plan Assessment/Plan Pt seen and examined; 66 year old male with right sided abdominal pain starting 4 days ago; evaluation consistent with cholecystitis; PMH/PSH/ROS/SH as above; exam: alert, oriented, no neck masses, no icterus, lungs clear, abdomen very tender RUQ, likely palpable mass, RLQ scar, labs and CT reviewed; recommend lap gregoria, the OR is full for this afternoon, able to schedule first case tomorrow AM. I reviewed the details of surgery with the patient including the risks; the risks include bleeding, infection, bile duct injury, bile leak, pain, visceral injury, potential need for additional surgery or procedure. The risks would be elevated with his presentation and he is aware of the significant chance of needing an open surgery. RYLIE FINN ELEVATOR MECHANIC APPRENTICE Jul 27, 2017 10:18 JOEY ARCHER MD Jul 27, 2017 12:58
[2017-07-27] MEDS ORDERED: ACETAMINOPHEN 650 MG SUPP.RECT. PR PRN (10:30)
[2017-07-27] MEDS ORDERED: MORPHINE SULFATE 4 MG/ML DISP.SYRIN. IV PRN ×2 (10:30)
[2017-07-27] MEDS ORDERED: ONDANSETRON PF 4 MG/2 ML VIAL. IV PRN (10:30)
--- NOTE | 2017-07-27 10:34 | PDOC ---
Provider Note Provider Note history and physical dictated # [id number] ZOEY THOMAS MD Jul 27, 2017 10:34
[2017-07-27] MEDS: POTASSIUM CL 20MEQ D5-0.45NACL 1,000 ML IV SCH (10:40)
[2017-07-27] MEDS ORDERED: ENOXAPARIN 40 MG/0.4 ML SYRINGE. SQ SCH (11:00)
[2017-07-27 11:07] LABS: INR 1.3 (0.8-1.1); PROTHROMBIN TIME PATIENT 15.5 SEC (11.7-14.0)
--- NOTE | 2017-07-27 11:13 | HP ---
ADMIT DATE: 07/27/2017 LOCATION: Room 663. HISTORY OF PRESENT ILLNESS: The patient is a 66-year-old white male who has a history of coronary artery disease and seizure disorder and hypertension who was seen in the office on 07/26/2017 with a 2-day history of nausea, vomiting, right-sided abdominal pain and decreased appetite. He denied any fever or blood in the stool, hematemesis and took Advil PM the night before admission. The patient had significant right-sided abdominal pain, was sent to the [facility] Emergency Room where he was noted to have a leukocytosis with a white count of 25.2 in the Emergency Room last night and had a CAT scan of the abdomen and pelvis which showed evidence of acute cholecystitis with reactive colitis and hepatic flexure. He also had a fever of 100.4 and he was started on IV Zosyn and Flagyl has been added. Blood cultures were done. Subsequently came to the hospital for further evaluation and treatment. ALLERGIES AND INTOLERANCES: None. MEDICATIONS: Prior to admission include aspirin 81 mg everyday, carvedilol 6.25 mg twice daily, Celexa 20 mg every day, gabapentin 600 mg twice daily, Keppra 500 mg twice daily, losartan 100 mg every day, omeprazole 40 mg every day and vitamin D 2000 units every day. PAST MEDICAL HISTORY: Significant for depression, osteopenia, coronary artery disease. He has a history of hypertension. He has a history of seizure disorder. He has had diverticulitis in the past. He has had an appendectomy in the past. Had a right tibia and fibula fracture, irritable bowel syndrome, peptic ulcer disease in the past, internal hemorrhoids in 2012. SOCIAL HISTORY: He does drink alcohol, it is unclear how much. He also has been like to smoke, has been a smoker in the past also. He is . FAMILY HISTORY: Remarkable in his mother who had congestive heart failure and COPD. REVIEW OF SYSTEMS: GENERAL: He has had a fever. CARDIOVASCULAR: No chest pain. PULMONARY: He feels short of breath this morning. GASTROINTESTINAL: Has right-sided abdominal pain, nausea and decreased appetite. ENDOCRINE: He has no diabetes mellitus. Rest of systems reviewed are negative except as stated in history of present illness. PHYSICAL EXAMINATION: VITAL SIGNS: Temperature is 98.7 degrees, pulse 87, respiratory rate 20, blood pressure 117/76, oxygen saturation 94% on room air. HEENT: Eyes: Gaze is conjugate. Mouth: Tongue is midline. NECK: There is no cervical lymphadenopathy or thyroid enlargement. HEART: Reveals an S1, S2. There is no S3 or murmur. LUNGS: Revealed decreased breath sounds with diffusely scattered rhonchi. ABDOMEN: Soft, with decreased bowel sounds and obese, got tenderness in the right side of the abdomen. EXTREMITIES: Lower extremities without edema. SKIN: No rashes. NEUROLOGIC: No focal weakness. ENDOCRINE: Lower extremities, no edema. NEUROLOGIC: No focal weakness. SKIN: No rashes. LABORATORY DATA: White count yesterday was 25.2; hemoglobin 16.4; platelet count 191,000; 86 polys; 4 lymphocytes. He had 12% bands. Today, the white count 23.3; hemoglobin 14.6; platelet count 148,000; 86 polys and 4 lymphocytes. Today, the serum sodium is 136, potassium 3.6, chloride 103, total CO2 of 26, BUN 25, creatinine 1.0, blood sugar 111, total bilirubin was 1.3, it was 1.5 yesterday. SGOT, SGPT and alkaline phosphatase normal. Albumin 3.5 yesterday, 2.7 today. Lipase was 104. He had an ultrasound of his abdomen also which showed gallbladder sludge and a fatty liver. A complex kidney cyst in the right kidney which has been noted back in 2012 and favors a benign finding. Electrocardiogram showed normal sinus rhythm with baseline wander. ASSESSMENT: 1. Suspected acute cholecystitis. 2. Leukocytosis. 3. Coronary artery disease. 4. Hypertension. 5. Seizure disorder. PLAN: To consult Dr. Patel for GI and Dr. Garcia for Infectious Disease already saw the patient, added IV Flagyl, consult Dr. Archer for general surgery. We will consult Dr. Arana as he has some shortness of breath could be from COPD. He had a stat chest x-ray and blood gas now, I will start him on Lovenox for deep vein thrombosis prophylaxis. Continue IV Zosyn and IV Flagyl. Recheck his CBC and BMP tomorrow. Keep him n.p.o., IV fluids have been ordered. We will put on Lovenox for deep vein thrombosis prophylaxis and IV Pepcid. Give him IV Keppra too. Blood cultures have been done and are pending. ZOEY THOMAS MD DR: Arpita JOB#: [id number] / [id number]
--- NOTE | 2017-07-27 11:24 | RAD ---
Portable chest, 07/27/2017: History: Shortness of breath The heart is at the upper limits of normal in size. The pulmonary vascularity is normal. No pulmonary infiltrates are seen. There is no evidence of pleural fluid. IMPRESSION: No acute cardiopulmonary abnormality is detected.
[2017-07-27 11:25] VITALS: BP 107/64
[2017-07-27] MEDS: IPRATRPIUM/ALBUTEROL 0.5/2.5MG 3 ML NEBU. NEB SCH ×4 (11:34→20:27)
[2017-07-27 11:43] LABS: CHOLESTEROL/HDL RATIO 1.8
--- NOTE | 2017-07-27 13:24 | PDOC2 ---
CARDIAC CONSULT DATE OF CONSULT Date of Consult DATE: 07/27/17 TIME: 13:11 REASON FOR CONSULT Reason for Consult: AFIB with RVR REFERRING PHYSICIAN Referring Physician: Dr. Velasco SOURCE Source: Chart review, Patient HISTORY OF PRESENT ILLNESS HISTORY OF PRESENT ILLNESS This is a 66 yo male who presented with complaints of RLQ abdominal pain. Patient reports pain began over the weekend. Denies any chest pain, palpitations , dizziness, diaphoresis, or nausea/vomiting. Was noted to be in atrial fibrillation with elevated rate, which prompted this consult. No previous h/o AFIB. CT abd/pelvis notable for possible cholecystitis. GI and surgical team have been consulted. PAST MEDICAL HISTORY Cardiovascular: HTN Pulmonary: COPD GI: No pertinent hx Heme/Onc: No pertinent hx Hepatobiliary: Other (appendicitis ) Psych: Addictions (ETOH), Depression Musculoskeletal: Osteoarthritis Rheumatologic: No pertinent hx Infectious disease: No pertinent hx ENT: No pertinent hx Renal/: No pertinent hx Endocrine: No pertinent hx Dermatology: No pertinent hx PAST SURGICAL HISTORY Past Surgical History: Appendectomy, Other (right knee surgery) FAMILY HISTORY Family History: Hypertension SOCIAL HISTORY Smoke: <1 pack per day ALCOHOL: heavy (4-5 drinks of whiskey daily ) Drugs: None Lives: with Family CURRENT MEDICATIONS CURRENT MEDICATIONS Current Medications Medications (Trade) Dose Ordered Sig/Gema Route PRN Reason Start Time Stop Time Status Last Admin Dose Admin Sodium Chloride 1,000 ml @ 1,000 mls/hr 1X ONCE IV 07/26/17 15:30 07/26/17 16:29 DC 07/26/17 16:42 Hydromorphone HCl (Dilaudid) 1 mg 1X ONCE IV 07/26/17 15:30 07/26/17 15:32 DC 07/26/17 16:43 Ondansetron HCl (Zofran) 4 mg 1X ONCE IV 07/26/17 15:30 07/26/17 15:32 DC 07/26/17 16:43 Pantoprazole Sodium (Protonix Vial) 40 mg 1X ONCE IVP 07/26/17 15:30 07/26/17 15:32 DC 07/26/17 16:42 Iohexol (Omnipaque 300 Mg/ml) 75 ml 1X ONCE IV 07/26/17 16:00 07/26/17 16:01 DC 07/26/17 16:23 Piperacillin Sod/ Tazobactam Sod (Zosyn) 3.375 gm 1X ONCE IVP 07/26/17 17:15 07/26/17 17:16 DC 07/26/17 17:28 Ondansetron HCl (Zofran) 4 mg PRN Q8HRS PRN IV NAUSEA/VOMITING 07/26/17 18:00 07/27/17 17:59 07/27/17 08:36 Morphine Sulfate 4 mg PRN Q2HR PRN IV PAIN 07/26/17 18:00 07/27/17 17:59 07/27/17 10:38 Potassium Chloride/Dextrose/ Sod Cl 1,000 ml @ 120 mls/hr 1X ONCE IV 07/26/17 18:30 07/27/17 02:49 DC 07/26/17 18:52 Famotidine (Pepcid Vial) 20 mg Q12HR IVP 07/26/17 21:00 07/27/17 08:28 Piperacillin Sod/ Tazobactam Sod (Zosyn) 3.375 gm Q6HRS IVP 07/27/17 00:00 07/27/17 05:18 Diphenhydramine HCl (Benadryl) 25 mg PRN QHS PRN PO INSOMNIA 07/26/17 23:15 07/26/17 23:21 Metronidazole 100 ml @ 100 mls/hr Q8HRS IV 07/27/17 10:00 07/27/17 10:39 Albuterol/ Ipratropium (Duoneb) 3 ml RTQID NEB 07/27/17 10:30 07/27/17 11:34 Potassium Chloride/Dextrose/ Sod Cl 1,000 ml @ 75 mls/hr [id number] IV 07/27/17 10:30 07/27/17 10:40 ALLERGIES ALLERGIES: Coded Allergies: No Known Drug Allergies (Unverified , 08/04/16) ROS Review of System 14 point ROS conducted with pertinent positives noted above in HPI. PHYSICAL EXAM General: Alert, Oriented X3, Cooperative, No acute distress HEENT: Atraumatic Lungs: Clear to auscultation, Other (diminished bases ) Heart: Regular rate, Normal S1, Normal S2, Other (tele AFIB rate 99) Abdomen: Soft, Other (RLQ tenderness) Extremities: No edema, Normal pulses Skin: No breakdown, No significant lesion Neuro: Normal speech, Sensation intact Psych/Mental Status: Mental status NL, Mood NL MUSCULOSKELETAL: Osteoarthritic changes both hands VITALS VITALS Vital Signs Date Time Temp Pulse Resp B/P (MAP) Pulse Ox O2 Delivery O2 Flow Rate FiO2 07/27/17 11:36 94 Room Air 07/27/17 11:25 98.7 90 20 107/64 (78) 98.7 LABS Lab: Laboratory Tests Test 07/26/17 14:25 07/26/17 21:20 07/27/17 04:50 07/27/17 10:30 White Blood Count 25.2 x10^3/uL (4.0-11.0) 23.3 x10^3/uL (4.0-11.0) Red Blood Count 5.20 x10^6/uL (4.30-5.70) 4.61 x10^6/uL (4.30-5.70) Hemoglobin 16.4 g/dL (13.0-17.5) 14.6 g/dL (13.0-17.5) Hematocrit 48.7 % (39.0-53.0) 43.6 % (39.0-53.0) Mean Corpuscular Volume 94 fL (79-100) 95 fL (79-100) Mean Corpuscular Hemoglobin 32 pg (25-35) 32 pg (25-35) Mean Corpuscular Hemoglobin Concent 34 g/dL (31-37) 33 g/dL (31-37) Red Cell Distribution Width 14.4 % (11.5-14.5) 14.6 % (11.5-14.5) Platelet Count 191 x10^3/uL (140-400) 148 x10^3/uL (140-400) Neutrophils (%) (Auto) 86 % (31-73) 86 % (31-73) Lymphocytes (%) (Auto) 4 % (24-48) 4 % (24-48) Monocytes (%) (Auto) 10 % (0-9) 9 % (0-9) Eosinophils (%) (Auto) 0 % (0-3) 0 % (0-3) Basophils (%) (Auto) 0 % (0-3) 0 % (0-3) Neutrophils # (Auto) 21.6 x10^3uL (1.8-7.7) 20.0 x10^3uL (1.8-7.7) Lymphocytes # (Auto) 1.0 x10^3/uL (1.0-4.8) 1.0 x10^3/uL (1.0-4.8) Monocytes # (Auto) 2.5 x10^3/uL (0.0-1.1) 2.2 x10^3/uL (0.0-1.1) Eosinophils # (Auto) 0.0 x10^3/uL (0.0-0.7) 0.0 x10^3/uL (0.0-0.7) Basophils # (Auto) 0.0 x10^3/uL (0.0-0.2) 0.1 x10^3/uL (0.0-0.2) Segmented Neutrophils % 78 % (35-66) Band Neutrophils % 12 % (0-9) Lymphocytes % 4 % (24-48) Monocytes % 6 % (0-10) Platelet Estimate Adequate (ADEQUATE) Sodium Level 137 mmol/L (136-145) 136 mmol/L (136-145) Potassium Level 4.1 mmol/L (3.5-5.1) 3.6 mmol/L (3.5-5.1) Chloride Level 99 mmol/L (98-107) 103 mmol/L (98-107) Carbon Dioxide Level 25 mmol/L (21-32) 26 mmol/L (21-32) Anion Gap 13 (6-14) 7 (6-14) Blood Urea Nitrogen 22 mg/dL (8-26) 25 mg/dL (8-26) Creatinine 1.0 mg/dL (0.7-1.3) 1.0 mg/dL (0.7-1.3) Estimated GFR (Cockcroft-Gault) 74.8 74.8 BUN/Creatinine Ratio 22 (6-20) 25 (6-20) Glucose Level 110 mg/dL (70-99) 111 mg/dL (70-99) Calcium Level 9.7 mg/dL (8.5-10.1) 8.7 mg/dL (8.5-10.1) Total Bilirubin 1.5 mg/dL (0.2-1.0) 1.3 mg/dL (0.2-1.0) Aspartate Amino Transf (AST/SGOT) 21 U/L (15-37) 16 U/L (15-37) Alanine Aminotransferase (ALT/SGPT) 19 U/L (16-63) 16 U/L (16-63) Alkaline Phosphatase 116 U/L (46-116) 89 U/L (46-116) Troponin I Quantitative < 0.017 ng/mL (0.000-0.055) Total Protein 7.8 g/dL (6.4-8.2) 6.9 g/dL (6.4-8.2) Albumin 3.5 g/dL (3.4-5.0) 2.7 g/dL (3.4-5.0) Albumin/Globulin Ratio 0.8 (1.0-1.7) 0.6 (1.0-1.7) Lipase 104 U/L (73-393) Lactic Acid Level 0.9 mmol/L (0.4-2.0) Triglycerides Level 61 mg/dL (0-150) Cholesterol Level 115 mg/dL (0-200) LDL Cholesterol, Calculated 40 mg/dL (0-100) VLDL Cholesterol, Calculated 12 mg/dL (0-40) Non-HDL Cholesterol Calculated 52 mg/dL (0-129) HDL Cholesterol 63 mg/dL (40-60) Cholesterol/HDL Ratio 1.8 Thyroid Stimulating Hormone (TSH) 0.457 uIU/mL (0.358-3.74) Prothrombin Time 15.5 SEC (11.7-14.0) Prothromb Time International Ratio 1.3 (0.8-1.1) ASSESSMENT/PLAN ASSESSMENT/PLAN 1. AFIB with RVR, new onset in the setting of acute pain and possible cholecystitis 2. Hypertension 3. Abdominal pain with possible cholecystitis; as per GI 4. Leukocytosis with fevers 5. Alcoholism Recommendations Obtain echo to assess LV function Check lipids, TSH, Mg Add low-dose metoprolol for rate control Add ASA for stroke prevention. Maintain adequate pain control Further recommendations pending diagnostics. Problems: GIANLUCA DAVIDSON APRN Jul 27, 2017 13:24
[2017-07-27] MEDS: ASPIRIN ENTERIC COATED 81 MG TABLET.DR. PO SCH (13:30)
[2017-07-27] MEDS: METOPROLOL TART IMMED RELEASE 25 MG TABLET. PO SCH ×2 (13:30→20:56)
--- NOTE | 2017-07-27 13:55 | CONS ---
DATE OF CONSULTATION: ATTENDING PHYSICIAN: Dr. Velasco. REASON FOR CONSULTATION: COPD. HISTORY OF PRESENT ILLNESS: The patient is a 66-year-old obese male with history of coronary artery disease, seizure disorder, hypertension and suspected COPD. The patient smoked for 30 years, half pack per day. The patient states since he is retired, he is not fully ambulatory and has some exertional dyspnea. He said he also has symptoms suggestive of sleep apnea for which he is scheduled for sleep study in 2 weeks. He was brought into the hospital after he was having symptoms of nausea, vomiting and right-sided abdominal pain and decreased appetite. The patient underwent imaging study, which showed acute cholecystitis and reactive colitis. He had a fever of 100.4. He has no hemoptysis, no cough or purulent sputum production. The chest x-ray was reviewed by me dated today and there is no acute infiltrate seen. I have been asked to see him for further evaluation of his COPD. PAST MEDICAL HISTORY: Significant for suspected COPD. I still suspected LIN, in the process of getting a sleep study. History of depression, osteopenia, coronary artery disease, hypertension, seizure disorder, diverticulitis in the past. PAST SURGICAL HISTORY: Appendectomy, right tibia and fibular fracture, irritable bowel syndrome, internal hemorrhoids. SOCIAL HISTORY: He does drink alcohol. He has been a smoker for 30 years before quitting. He is . FAMILY HISTORY: Noncontributory to lungs. REVIEW OF SYSTEMS: Twelve-point system obtained. Pertinent positives discussed in my history of present illness, otherwise noncontributory. All systems that were negative were reviewed as well. ALLERGIES: None. CURRENT MEDICATIONS: Reviewed as listed in the [facility] including DuoNeb and antibiotic Zosyn. PHYSICAL EXAMINATION: GENERAL: He is awake, following commands. VITAL SIGNS: Blood pressure stable, pulse ox 94% on room air, 100.4 T-max. HEENT: Sclerae nonicteric. NECK: Supple. LUNGS: Clear breath sounds. No wheezing. CARDIOVASCULAR: Regular rate and rhythm. ABDOMEN: Tender in the right upper quadrant and obese. EXTREMITIES: No pitting edema. LABORATORY DATA: Reviewed. White cell count was 25,000, hemoglobin 14.6 and platelets are 148. IMPRESSION: 1. Right upper quadrant pain secondary to acute cholecystitis/colitis. Currently, Surgery has been consulted, awaiting operative intervention. 2. Underlying chronic obstructive pulmonary disease, seems to be clinically compensated. Right upper quadrant pain is somewhat making breathing uncomfortable, but I do not hear any obvious wheezing. Chest x-ray is clear. 3. Suspected obstructive sleep apnea. He says he is scheduled for sleep study in 2 weeks from now. 4. Fever secondary to acute cholecystitis. RECOMMENDATION: 1. Continue with broad-spectrum antibiotics. 2. Bronchodilators as scheduled. 3. Full PFTs as an outpatient. 4. Sleep study as an outpatient. 5. Follow surgical recommendation regarding acute cholecystitis. 6. Discussed with RN and will follow along with you. HENRY MAX MD DR: RUBY/bogdan JOB#: [id number] / [id number] JORDAN
[2017-07-27] MEDS ORDERED: fentaNYL PF VIAL 100 MCG/2 ML VIAL IV PRN ×2 (14:45)
--- NOTE | 2017-07-27 15:27 | CARD ---
APPROVED REPORT EXAM: Two-dimensional and M-mode echocardiogram with Doppler and color Doppler. Other Information Quality : Average INDICATION Atrial Fibrillation 2D DIMENSIONS Left Atrium(2D)3.4 (1.6-4.0cm)IVSd1.5 (0.7-1.1cm) Aortic Root(2D)2.5 (2.0-3.7cm)LVDd3.8 (3.9-5.9cm) LVOT Diameter2.0 (1.8-2.4cm)PWd1.4 (0.7-1.1cm) LVDs2.7 (2.5-4.0cm)FS (%) 27.3 % SV32.6 mlLVEF(%)53.9 (>50%) Aortic Valve AoV Peak Werner.131.0cm/sAoV VTI16.3cm AO Peak GR.6.9mmHgLVOT Peak Werner.92.8cm/s AO Mean GR.3mmHgAVA (VMAX)2.28cm2 CARMEN (VTI)2.30cm2 Mitral Valve MV E Ptcxywxr34.8cm/sMV DECEL YQAR014wv MV A Velocity0.5cm/sE/A Jysjg568.6 Tricuspid Valve TR P. Oifwonwm597eu/sRAP QUOVRIZB3pmKo TR Peak Gr.80sfHzKHZT55ctZx LEFT VENTRICLE The left ventricle is normal size. There is mild to moderate concentric left ventricular hypertrophy. Left ventricle systolic function is normal. The Ejection Fraction is 50-55%. There is grossly normal wall motion. Technically limited due to patient positioning and body habitus. Tissue Doppler imaging reveals mild left ventricular diastolic dysfunction. RIGHT VENTRICLE The right ventricle is normal size. The right ventricular systolic function is normal. ATRIA The left atrium size is normal. The right atrium size is normal. The interatrial septum is intact wit h no evidence for an atrial septal defect or patent foramen ovale as noted on 2-D or Doppler imaging. AORTIC VALVE The aortic valve is calcified but opens well. Doppler and Color Flow revealed no significant aortic r egurgitation. There is no significant aortic valvular stenosis. MITRAL VALVE The mitral valve is thickened but opens well. There is no evidence of mitral valve prolapse. There is no mitral valve stenosis. Doppler and Color Flow revealed no mitral valve regurgitation noted. TRICUSPID VALVE The tricuspid valve is normal in structure. Doppler and Color Flow revealed trace to mild tricuspid r egurgitation. There is no pulmonary hypertension. The PA pressure was estimated at 20 mmHg. There is no tricuspid valve prolapse or vegetation. There is no tricuspid valve stenosis. PULMONIC VALVE Doppler and Color Flow revealed trace pulmonic valvular regurgitation. There is no pulmonic valvular stenosis. GREAT VESSELS The aortic root is normal in size. The ascending aorta is normal in size. The IVC is normal in size a nd collapses >50% with inspiration. PERICARDIAL EFFUSION There is no pleural effusion. There is no evidence of significant pericardial effusion. Critical Notification Critical Value: No <Conclusion> Left ventricle systolic function is normal. The Ejection Fraction is 50-55%. There is grossly normal wall motion. Technically limited due to patient positioning and body habitus.
[2017-07-27 15:46] VITALS: BP 97/68
[2017-07-27] MEDS ORDERED: SINCALIDE 1.89 MCG in IV NORMAL SALINE 50ML 30 ML IV ONE (17:30)
--- NOTE | 2017-07-27 18:18 | CONS ---
DATE OF CONSULTATION: 07/27/2017 ROOM: 663. REQUESTING PHYSICIAN: Dr. Vizcaino, Emergency Room. REASON FOR CONSULTATION: Leukocytosis, abdominal pain and cholecystitis. HISTORY OF PRESENT ILLNESS: The patient is a 66-year-old gentleman with a previous history of C. diff colitis noted in 2014, also has a history of alcohol abuse and gastroesophageal reflux disease. He states on Wednesday, he awakened and was in his normal state of health, but over the course had gradual onset of abdominal pain. This was then accompanied by nausea, vomiting. Denies any blood in his vomit. Denies any gross diarrhea or blood in the stool. He had sweats. Denies any known fevers, no problems passing his urine and then presented to the primary care physician and was referred to [facility] Emergency Room. On arrival, he had temperature of 100 degrees. White blood cell count was elevated at 25.2 with 12% bands. He had mildly elevated total bilirubin. He underwent initial ultrasound which showed gallbladder sludge, fatty infiltration of the large liver and a complex cystic lesion in the left lower pole of the right kidney that has been stable since 05/2012, favoring benign etiology. He then underwent a CT scan of the abdomen and pelvis, which showed concern for acute cholecystitis with reactive colitis in the hepatic flexure. He was admitted to the hospital and placed on Zosyn. Surgery has been consulted as well as GI. Currently, he is lying in bed. He has no gross headaches, has some sinus congestion every morning, producing some cough and some sputum, but not over the course of the day. Denies any sore throat or chest pain. No shortness of air. Denies any numbness, tingling. No rashes. PAST MEDICAL HISTORY: Positive for depression, hypertension, seizures, tremors and alcohol abuse. Also, has had a previous impacted food bolus. Gastroesophageal reflux disease. PAST SURGICAL HISTORY: Positive for appendectomy as well as EGD for bolus removal. REVIEW OF SYSTEMS: Otherwise negative except for what is mentioned above. ALLERGIES: No known drug allergies. SOCIAL HISTORY: He does drink daily alcohol. FAMILY HISTORY: Noncontributory. CURRENT MEDICATIONS: Include Zosyn, Dilaudid, Zofran. Other meds are available, have been reviewed in the chart. PHYSICAL EXAMINATION: VITAL SIGNS: T-max 100.4, currently 97, pulse 87, respirations 20, blood pressure 117/76, satting 94% on room air. CONSTITUTIONAL: He is alert. He looks a little tired, but is in no acute distress. HEENT: Pupils are equal and reactive. Normal conjunctivae. Oral cavity, pharynx was clear. NECK: Supple, no JVD. LUNGS: Clear to auscultation. HEART: S1, S2. ABDOMEN: Mildly distended, it is soft. There is some tenderness in the right upper to mid quadrants, a little bit of questionable guarding, no rebound in the left lower quadrant. EXTREMITIES: Without clubbing, cyanosis or gross edema. SKIN: Warm to touch without generalized signs of rash. NEUROLOGIC: He moves all extremities and answers questions appropriately. PSYCHIATRIC: Affect is appropriate. LABORATORY VALUES: White count 23.3, hemoglobin 14.6, platelets of 148, neutrophils 86, glucose 111, creatinine of 1, total bilirubin of 1.3 down from 1.5, AST 16, ALT 16, alkaline phosphatase 89. Radiology reviewed in history of present illness. IMPRESSION: 1. Fever. 2. Leukocytosis. 3. Probable acute cholecystitis, questionable acalculous. He has fever, nausea, vomiting and right upper quadrant abdominal pain. 4. Colitis on CT. 5. History of Clostridium difficile 08/02/2015. 6. Alcohol abuse. RECOMMENDATIONS: For now, continue the Zosyn. We will add IV Flagyl. Follow up surgical evaluation. Follow up labs and cultures. Thank you for participate in the patient's care. Should you have any further concerns and questions, please do not hesitate to contact me. IDA TOVAR MD DR: MELLISA/bogdan JOB#: [id number] / [id number]
[2017-07-27 19:10] VITALS: BP 111/65
[2017-07-27] MEDS: LACTOBACILLUS RHAMNOSUS GG 1 CAPSULE. PO SCH (20:55)
[2017-07-27 23:10] VITALS: BP 148/81
[2017-07-28] VITALS (8 sets, daily range): BP systolic 109–137; BP diastolic 43–81
[2017-07-28 05:21] LABS: INR 1.3 (0.8-1.1); PROTHROMBIN TIME PATIENT 15.4 SEC (11.7-14.0)
[2017-07-28 05:22] LABS: BASO % 0 % (0-3); EOS % 0 % (0-3); HEMATOCRIT 42.5 % (39.0-53.0); HEMOGLOBIN 14.1 g/dL (13.0-17.5); LYMPH # 0.9 x10^3/uL (1.0-4.8); LYMPH % 5 % (24-48); MEAN CORPUSCULAR HEMOGLOBIN 32 pg (25-35); MEAN CORPUSCULAR HGB CONC 33 g/dL (31-37); MEAN CORPUSCULAR VOLUME 95 fL (79-100); MONO % 10 % (0-9); NEUT % 85 % (31-73); PLATELET COUNT 163 x10^3/uL (140-400); RED BLOOD COUNT 4.48 x10^6/uL (4.30-5.70); RED CELL DISTRIBUTION WIDTH 14.4 % (11.5-14.5)
[2017-07-28] MEDS: PIPERACILLIN/TAZO IV Push 3.375 GM VIAL. IVP SCH ×5 (05:34→23:31)
[2017-07-28] MEDS: POTASSIUM CL 20MEQ D5-0.45NACL 1,000 ML IV SCH ×2 (05:40→13:10)
[2017-07-28 05:51] LABS: ALBUMIN 2.4 g/dL (3.4-5.0); CALCIUM 8.9 mg/dL (8.5-10.1); CREATININE 1.3 mg/dL (0.7-1.3); DIRECT BILIRUBIN 0.3 mg/dL (0.0-0.2); GFR 55.2; POTASSIUM 3.5 mmol/L (3.5-5.1); TOTAL BILIRUBIN 0.8 mg/dL (0.2-1.0); TOTAL PROTEIN 6.8 g/dL (6.4-8.2)
[2017-07-28] MEDS ORDERED: MORPHINE SULFATE 4 MG/ML DISP.SYRIN. IV PRN (07:00)
[2017-07-28] MEDS ORDERED: PROCHLORPERAZINE 10 MG/2 ML VIAL. IV PRN (07:00)
[2017-07-28] MEDS ORDERED: IV RINGERS,LACTATED 1000ML 1,000 ML IV SCH (07:00)
[2017-07-28] MEDS ORDERED: HYDROmorphone 2 MG/ML VIAL IV PRN (07:00)
[2017-07-28] MEDS ORDERED: fentaNYL PF VIAL 100 MCG/2 ML VIAL IV PRN (07:00)
[2017-07-28] MEDS ORDERED: LIDOCAINE 1% PF 2 ML VIAL. ID PRN (07:00)
[2017-07-28] MEDS ORDERED: IOHEXOL 300 MG/ML 50 ML VIAL. ONE (07:05)
[2017-07-28] MEDS ORDERED: SURGICEL HEMOSTAT 4X8 EACH. ONE (07:05)
[2017-07-28] MEDS ORDERED: BUPIVAC MPF-EPI 0.5%-1:200000 30 ML VIAL. ONE (07:05)
[2017-07-28] MEDS ORDERED: fentaNYL PF VIAL 100 MCG/2 ML VIAL ONE ×2 (07:14→09:50)
[2017-07-28] MEDS ORDERED: PROPOFOL 20 ML IV ONE (07:14)
[2017-07-28] MEDS ORDERED: ROCURONIUM 50 MG/5 ML VIAL. ONE (07:14)
[2017-07-28] MEDS ORDERED: DEXAMETHASONE SOD PHOS 20 MG/5 ML VIAL. ONE (07:14)
[2017-07-28] MEDS ORDERED: LIDOCAINE 2% PF Vial for OR 5 ML VIAL. ONE (07:14)
[2017-07-28] MEDS ORDERED: ONDANSETRON PF 4 MG/2 ML VIAL. ONE (07:14)
--- NOTE | 2017-07-28 07:30 | RAD ---
Radionuclide hepatobiliary scan, 07/27/2017: History: Abdominal pain, possible cholecystitis Following IV injection of 5.0 mCi of technetium 99m Choletec there was prompt uptake of the radionuclide from the blood stream by the liver. Bile duct and small bowel activity is present at 15 minutes. Gallbladder activity develops at 25 minutes. Additional imaging was then performed following IV injection of 1.8 mcg of cholecystokinin. The gallbladder ejection fraction was calculated at 27%. 30-50% is considered to be the borderline low range. IMPRESSION: 1. No evidence of cystic duct or common bile duct obstruction. 2. Decreased gallbladder ejection fraction of 27%.
[2017-07-28] MEDS: IPRATRPIUM/ALBUTEROL 0.5/2.5MG 3 ML NEBU. NEB SCH ×4 (07:38→19:49)
[2017-07-28] MEDS: ASPIRIN ENTERIC COATED 81 MG TABLET.DR. PO SCH (08:00)
[2017-07-28] MEDS ORDERED: PHENYLEPHRINE in 0.9% NACL PF 1 MG/10 ML DISP.SYRIN. IV ONE (08:48)
[2017-07-28] MEDS ORDERED: GLYCOPYRROLATE 1 MG/5 ML VIAL. ONE (08:48)
[2017-07-28] MEDS ORDERED: NEOSTIGMINE 10 MG/10 ML VIAL. ONE (08:48)
[2017-07-28] MEDS ORDERED: METOPROLOL TARTRATE 5 MG/5 ML VIAL. ONE (08:50)
[2017-07-28] MEDS: METOPROLOL TART IMMED RELEASE 25 MG TABLET. PO SCH ×2 (09:00→20:54)
[2017-07-28] MEDS ORDERED: SEVOFLURANE 61 TO 120 MINUTES. IH ONE (09:00)
[2017-07-28] MEDS: LACTOBACILLUS RHAMNOSUS GG 1 CAPSULE. PO SCH ×2 (09:00→20:54)
--- NOTE | 2017-07-28 09:04 | RAD ---
Intraoperative cholangiogram, 07/28/2017: History: Cholecystectomy 3 spot films from surgery are presented for review. Contrast has been injected into the cystic duct remnant. 26 seconds of fluoroscopy time was utilized. There is good flow of contrast into the duodenum at the ankle. There is a tiny lucency in the distal common bile duct raising the possibility of a small calculus versus an air bubble. Ampullary spasm may be contributing to this appearance. The common bile duct is at the upper limits of normal in size. The visualized intrahepatic ducts are unremarkable. No contrast extravasation is seen. IMPRESSION: Small distal common bile duct lucency raising the possibility of a retained calculus.
[2017-07-28] MEDS ORDERED: MAGNESIUM SULFATE 2GM 50 ML IV ONE (09:30)
[2017-07-28] MEDS ORDERED: oxyCODONE/APAP 5/325 1 TAB TABLET PO PRN ×2 (09:30→09:45)
--- NOTE | 2017-07-28 09:38 | PDOC4 ---
Operative Note Operative Note Operative Note: Preoperative Diagnosis: Acute cholecystitis Postoperative Diagnosis: Severe acute cholecystitis Procedure: Laparoscopic cholecystectomy with intraoperative cholangiogram Surgeons: Gianni Grade Checker: Dr. Regan Anesthesia: Gen. Estimated Blood Loss: 50 mL Specimen: Gallbladder to pathology Drains: 19 Maltese round Arias drain to right upper quadrant Complications: None Disposition: Patient to PACU in stable condition Indications: The patient is a 66-year-old male who reported with right upper quadrant pain. His evaluation appeared consistent with cholecystitis.. Surgical treatment was offered by means of a laparoscopic cholecystectomy. The risks of surgery were discussed which include bleeding, infection, bile duct injury, bile leak, pain, the potential for additional surgeries or procedures. The patient understands and would like to proceed. Description: The patient was taken to the operating room and laid supine on the operating table. General anesthesia was performed. The abdomen was prepped with ChloraPrep and draped in a standard surgical fashion. A small infraumbilical incision was made with a scalpel. The Veress needle was then inserted and a pneumoperitoneum was then created. A 5 mm trocar was then inserted and the laparoscope was introduced. In the upper midabdomen a 12 mm trocar was inserted, and in the right upper quadrant two 5 mm trochars were inserted. Inspection of the right upper quadrant showed a marked inflammatory reaction with the omentum obscuring the gallbladder. We began peeling away the omentum revealing a very inflamed gallbladder with marked surrounding inflammatory change. Another 5 mm trocar was placed on the right abdomen to provide downward retraction on the omentum and assist exposure. The gallbladder was retracted cephalad. We began mobilizing some of the adherent inflammatory tissue away from the gallbladder. The dissection continued inferiorly and gradually we were able to better identify the border of the gallbladder from the surrounding inflammatory tissue. We began dissection inferiorly and identified a structure coming directly from the gallbladder. Further evaluation seemed to be an anterior artery. This was dissected free, doubly clipped and divided. Posterior to this we were able to identify another vessel entering the gallbladder which was also clipped and divided. We were then gradually able to identify a duct-like structure from the gallbladder consistent with the cystic duct. One clip was placed on the duct near the gallbladder junction. An opening was made in the duct and a cholangiocatheter placed within and secured with a clip. Using contrast dye and fluoroscopy an intraoperative cholangiogram was performed that appeared unremarkable. The clip and catheter were then withdrawn. Three clips were placed on the cystic duct and it was divided. The gallbladder was then mobilized away from the liver with cautery. A Surgicel pack was placed on the gallbladder fossa to assist with any oozing. The gallbladder was then placed in an endoscopic bag and extracted at the superior trocar site. The fascia and skin incisions had to be extended to allow for extraction of the markedly inflamed gallbladder. The fascia was then reapproximated with interrupted 0 PDS sutures. The abdomen was reinsufflated and inspected. A 19 Maltese round Arias drain was left in the gallbladder fossa which exited in the right lateral incision site. This was secured to the skin with 2-0 silk. Any remaining blood and irrigation fluid was suctioned and hemostasis was good. The remaining ports were removed and the pneumoperitoneum was relieved. The skin incisions were injected with half percent Marcaine with epinephrine, and all were closed using 4-0 Monocryl suture. Steri-Strips and dressings were then applied. The patient tolerated the procedure well and was sent to the recovery room in stable condition. At the end of the case all counts were correct. JOEY ORTIZ MD Jul 28, 2017 09:38
[2017-07-28] MEDS: fentaNYL PF VIAL 100 MCG/2 ML VIAL IV PRN ×3 (09:54→10:32)
[2017-07-28] MEDS ORDERED: PROCHLORPERAZINE 10 MG/2 ML VIAL. ONE (10:05)
--- NOTE | 2017-07-28 10:43 | PDOC ---
PROGRESS NOTES Subjective Subjective seen in surgical recovery. alert. denies pain. tolerated lap gregoria well for severe acute cholecystitis. lab reviewed. Objective Objective Vital Signs Date Time Temp Pulse Resp B/P (MAP) Pulse Ox O2 Delivery O2 Flow Rate FiO2 07/28/17 10:34 72 24 118/79 93 Nasal Cannula 2 07/28/17 10:19 98.0 98.0 Intake and Output 07/28/17 07:00 Intake Total 0 ml Output Total 400 ml Balance -400 ml Intake Oral 0 ml Output Urine Total 400 ml Physical Exam Abdomen: Other (dry dressings) Heart: Regular rate, Normal S1, Normal S2 Extremities: No edema General: Alert HEENT: Atraumatic Lungs: Clear to auscultation Neuro: Normal speech Psych/Mental Status: Mood NL Skin: No rashes Assessment Assessment Problems1. lap cholecystectomy for acute severe cholecystitis 2. Leukocytosis.slightly better 3. Coronary artery disease. 4. Hypertension. 5. Seizure disorder. Medical Problems: (1) Abdominal pain Status: Acute (2) Cholecystitis Status: Acute (3) Gastritis Status: Acute (4) Leukocytosis Status: Acute Plan Plan of Care continue iv fluids continue analgesics continue antibiotics continue keppra lab tomorrow Comment Review of Relevant I have reviewed the following items everett (where applicable) has been applied. Labs Laboratory Tests Test 07/26/17 14:25 07/26/17 21:20 07/27/17 04:50 07/27/17 10:30 White Blood Count 25.2 x10^3/uL (4.0-11.0) 23.3 x10^3/uL (4.0-11.0) Red Blood Count 5.20 x10^6/uL (4.30-5.70) 4.61 x10^6/uL (4.30-5.70) Hemoglobin 16.4 g/dL (13.0-17.5) 14.6 g/dL (13.0-17.5) Hematocrit 48.7 % (39.0-53.0) 43.6 % (39.0-53.0) Mean Corpuscular Volume 94 fL (79-100) 95 fL (79-100) Mean Corpuscular Hemoglobin 32 pg (25-35) 32 pg (25-35) Mean Corpuscular Hemoglobin Concent 34 g/dL (31-37) 33 g/dL (31-37) Red Cell Distribution Width 14.4 % (11.5-14.5) 14.6 % (11.5-14.5) Platelet Count 191 x10^3/uL (140-400) 148 x10^3/uL (140-400) Neutrophils (%) (Auto) 86 % (31-73) 86 % (31-73) Lymphocytes (%) (Auto) 4 % (24-48) 4 % (24-48) Monocytes (%) (Auto) 10 % (0-9) 9 % (0-9) Eosinophils (%) (Auto) 0 % (0-3) 0 % (0-3) Basophils (%) (Auto) 0 % (0-3) 0 % (0-3) Neutrophils # (Auto) 21.6 x10^3uL (1.8-7.7) 20.0 x10^3uL (1.8-7.7) Lymphocytes # (Auto) 1.0 x10^3/uL (1.0-4.8) 1.0 x10^3/uL (1.0-4.8) Monocytes # (Auto) 2.5 x10^3/uL (0.0-1.1) 2.2 x10^3/uL (0.0-1.1) Eosinophils # (Auto) 0.0 x10^3/uL (0.0-0.7) 0.0 x10^3/uL (0.0-0.7) Basophils # (Auto) 0.0 x10^3/uL (0.0-0.2) 0.1 x10^3/uL (0.0-0.2) Segmented Neutrophils % 78 % (35-66) Band Neutrophils % 12 % (0-9) Lymphocytes % 4 % (24-48) Monocytes % 6 % (0-10) Platelet Estimate Adequate (ADEQUATE) Sodium Level 137 mmol/L (136-145) 136 mmol/L (136-145) Potassium Level 4.1 mmol/L (3.5-5.1) 3.6 mmol/L (3.5-5.1) Chloride Level 99 mmol/L (98-107) 103 mmol/L (98-107) Carbon Dioxide Level 25 mmol/L (21-32) 26 mmol/L (21-32) Anion Gap 13 (6-14) 7 (6-14) Blood Urea Nitrogen 22 mg/dL (8-26) 25 mg/dL (8-26) Creatinine 1.0 mg/dL (0.7-1.3) 1.0 mg/dL (0.7-1.3) Estimated GFR (Cockcroft-Gault) 74.8 74.8 BUN/Creatinine Ratio 22 (6-20) 25 (6-20) Glucose Level 110 mg/dL (70-99) 111 mg/dL (70-99) Calcium Level 9.7 mg/dL (8.5-10.1) 8.7 mg/dL (8.5-10.1) Total Bilirubin 1.5 mg/dL (0.2-1.0) 1.3 mg/dL (0.2-1.0) Aspartate Amino Transf (AST/SGOT) 21 U/L (15-37) 16 U/L (15-37) Alanine Aminotransferase (ALT/SGPT) 19 U/L (16-63) 16 U/L (16-63) Alkaline Phosphatase 116 U/L (46-116) 89 U/L (46-116) Troponin I Quantitative < 0.017 ng/mL (0.000-0.055) Total Protein 7.8 g/dL (6.4-8.2) 6.9 g/dL (6.4-8.2) Albumin 3.5 g/dL (3.4-5.0) 2.7 g/dL (3.4-5.0) Albumin/Globulin Ratio 0.8 (1.0-1.7) 0.6 (1.0-1.7) Lipase 104 U/L (73-393) Lactic Acid Level 0.9 mmol/L (0.4-2.0) Magnesium Level 1.6 mg/dL (1.8-2.4) Triglycerides Level 61 mg/dL (0-150) Cholesterol Level 115 mg/dL (0-200) LDL Cholesterol, Calculated 40 mg/dL (0-100) VLDL Cholesterol, Calculated 12 mg/dL (0-40) Non-HDL Cholesterol Calculated 52 mg/dL (0-129) HDL Cholesterol 63 mg/dL (40-60) Cholesterol/HDL Ratio 1.8 Thyroid Stimulating Hormone (TSH) 0.457 uIU/mL (0.358-3.74) Prothrombin Time 15.5 SEC (11.7-14.0) Prothromb Time International Ratio 1.3 (0.8-1.1) Test 07/28/17 03:50 White Blood Count 19.0 x10^3/uL (4.0-11.0) Red Blood Count 4.48 x10^6/uL (4.30-5.70) Hemoglobin 14.1 g/dL (13.0-17.5) Hematocrit 42.5 % (39.0-53.0) Mean Corpuscular Volume 95 fL (79-100) Mean Corpuscular Hemoglobin 32 pg (25-35) Mean Corpuscular Hemoglobin Concent 33 g/dL (31-37) Red Cell Distribution Width 14.4 % (11.5-14.5) Platelet Count 163 x10^3/uL (140-400) Neutrophils (%) (Auto) 85 % (31-73) Lymphocytes (%) (Auto) 5 % (24-48) Monocytes (%) (Auto) 10 % (0-9) Eosinophils (%) (Auto) 0 % (0-3) Basophils (%) (Auto) 0 % (0-3) Neutrophils # (Auto) 16.2 x10^3uL (1.8-7.7) Lymphocytes # (Auto) 0.9 x10^3/uL (1.0-4.8) Monocytes # (Auto) 1.9 x10^3/uL (0.0-1.1) Eosinophils # (Auto) 0.0 x10^3/uL (0.0-0.7) Basophils # (Auto) 0.0 x10^3/uL (0.0-0.2) Prothrombin Time 15.4 SEC (11.7-14.0) Prothromb Time International Ratio 1.3 (0.8-1.1) Sodium Level 139 mmol/L (136-145) Potassium Level 3.5 mmol/L (3.5-5.1) Chloride Level 103 mmol/L (98-107) Carbon Dioxide Level 26 mmol/L (21-32) Anion Gap 10 (6-14) Blood Urea Nitrogen 36 mg/dL (8-26) Creatinine 1.3 mg/dL (0.7-1.3) Estimated GFR (Cockcroft-Gault) 55.2 Glucose Level 117 mg/dL (70-99) Calcium Level 8.9 mg/dL (8.5-10.1) Total Bilirubin 0.8 mg/dL (0.2-1.0) Direct Bilirubin 0.3 mg/dL (0.0-0.2) Aspartate Amino Transf (AST/SGOT) 15 U/L (15-37) Alanine Aminotransferase (ALT/SGPT) 17 U/L (16-63) Alkaline Phosphatase 93 U/L (46-116) Total Protein 6.8 g/dL (6.4-8.2) Albumin 2.4 g/dL (3.4-5.0) Laboratory Tests Test 07/28/17 03:50 White Blood Count 19.0 x10^3/uL (4.0-11.0) Red Blood Count 4.48 x10^6/uL (4.30-5.70) Hemoglobin 14.1 g/dL (13.0-17.5) Hematocrit 42.5 % (39.0-53.0) Mean Corpuscular Volume 95 fL (79-100) Mean Corpuscular Hemoglobin 32 pg (25-35) Mean Corpuscular Hemoglobin Concent 33 g/dL (31-37) Red Cell Distribution Width 14.4 % (11.5-14.5) Platelet Count 163 x10^3/uL (140-400) Neutrophils (%) (Auto) 85 % (31-73) Lymphocytes (%) (Auto) 5 % (24-48) Monocytes (%) (Auto) 10 % (0-9) Eosinophils (%) (Auto) 0 % (0-3) Basophils (%) (Auto) 0 % (0-3) Neutrophils # (Auto) 16.2 x10^3uL (1.8-7.7) Lymphocytes # (Auto) 0.9 x10^3/uL (1.0-4.8) Monocytes # (Auto) 1.9 x10^3/uL (0.0-1.1) Eosinophils # (Auto) 0.0 x10^3/uL (0.0-0.7) Basophils # (Auto) 0.0 x10^3/uL (0.0-0.2) Prothrombin Time 15.4 SEC (11.7-14.0) Prothromb Time International Ratio 1.3 (0.8-1.1) Sodium Level 139 mmol/L (136-145) Potassium Level 3.5 mmol/L (3.5-5.1) Chloride Level 103 mmol/L (98-107) Carbon Dioxide Level 26 mmol/L (21-32) Anion Gap 10 (6-14) Blood Urea Nitrogen 36 mg/dL (8-26) Creatinine 1.3 mg/dL (0.7-1.3) Estimated GFR (Cockcroft-Gault) 55.2 Glucose Level 117 mg/dL (70-99) Calcium Level 8.9 mg/dL (8.5-10.1) Total Bilirubin 0.8 mg/dL (0.2-1.0) Direct Bilirubin 0.3 mg/dL (0.0-0.2) Aspartate Amino Transf (AST/SGOT) 15 U/L (15-37) Alanine Aminotransferase (ALT/SGPT) 17 U/L (16-63) Alkaline Phosphatase 93 U/L (46-116) Total Protein 6.8 g/dL (6.4-8.2) Albumin 2.4 g/dL (3.4-5.0) Microbiology 07/26/17 Blood Culture - Preliminary, Resulted NO GROWTH AFTER 1 DAY Medications Current Medications Sodium Chloride 1,000 ml @ 1,000 mls/hr 1X ONCE IV Last administered on 07/26 16:42; Start 07/26/17 at 15:30; Stop 07/26/17 at 16:29; Status DC Hydromorphone HCl (Dilaudid) 1 mg 1X ONCE IV Last administered on 07/26/17 16:43; Start 07/26/17 at 15:30; Stop 07/26/17 at 15:32; Status DC Ondansetron HCl (Zofran) 4 mg 1X ONCE IV Last administered on 07/26/17 16:43 ; Start 07/26/17 at 15:30; Stop 07/26/17 at 15:32; Status DC Pantoprazole Sodium (Protonix Vial) 40 mg 1X ONCE IVP Last administered on 16:42; Start 07/26/17 at 15:30; Stop 07/26/17 at 15:32; Status DC Iohexol (Omnipaque 300 Mg/ml) 75 ml 1X ONCE IV Last administered on 16:23; Start 07/26/17 at 16:00; Stop 07/26/17 at 16:01; Status DC Info (Do NOT chart on this entry -- for MONITORING) 1 each PRN DAILY PRN MC SEE COMMENTS; Start 07/26/17 at 16:00; Stop 07/28/17 at 15:59 Piperacillin Sod/ Tazobactam Sod 3.375 gm/Dextrose 50 ml @ 100 mls/hr 1X ONCE IV ; Start 07/26/17 at 17:15; Stop 07/26/17 at 17:44; Status UNV Piperacillin Sod/ Tazobactam Sod (Zosyn) 3.375 gm 1X ONCE IVP Last administered on 07/26/17 17:28; Start 07/26/17 at 17:15; Stop 07/26/17 at 17 :16; Status DC Ondansetron HCl (Zofran) 4 mg PRN Q8HRS PRN IV NAUSEA/VOMITING Last administered on 07/27/17 08:36; Start 07/26/17 at 18:00; Stop 07/27/17 at 17 :59; Status DC Morphine Sulfate 4 mg PRN Q2HR PRN IV PAIN Last administered on 07/27/17 10: 38; Start 07/26/17 at 18:00; Stop 07/27/17 at 17:59; Status DC Piperacillin Sod/ Tazobactam Sod 3.375 gm/Dextrose 50 ml @ 100 mls/hr Q6HRS IV ; Start 07/26/17 at 18:00; Status UNV Potassium Chloride/Dextrose/ Sod Cl 1,000 ml @ 120 mls/hr 1X ONCE IV Last administered on 07/26/17 18:52; Start 07/26/17 at 18:30; Stop 07/27/17 at 02 :49; Status DC Famotidine (Pepcid Vial) 20 mg Q12HR IVP Last administered on 07/27/17 20:56 ; Start 07/26/17 at 21:00 Piperacillin Sod/ Tazobactam Sod (Zosyn) 3.375 gm Q6HRS IVP Last administered on 07/28/17 05:34; Start 07/27/17 at 00:00 Diphenhydramine HCl (Benadryl) 25 mg PRN QHS PRN PO INSOMNIA Last administered on 07/26/17 23:21; Start 07/26/17 at 23:15 Metronidazole 100 ml @ 100 mls/hr Q8HRS IV Last administered on 07/28/17 05: 34; Start 07/27/17 at 10:00 Levetiracetam 500 mg/Sodium Chloride 105 ml @ 420 mls/hr Q12HR IV Last administered on 07/27/17 20:51; Start 07/27/17 at 11:00 Enoxaparin Sodium (Lovenox 40mg Syringe) 40 mg Q24H SQ ; Start 07/27/17 at 11: 00; Stop 07/27/17 at 11:00; Status DC Acetaminophen (Acetaminophen Supp) 650 mg PRN Q6HRS PRN GA MILD PAIN / TEMP; Start 07/27/17 at 10:30 Albuterol/ Ipratropium (Duoneb) 3 ml RTQID NEB Last administered on 07/28/17 10:06; Start 07/27/17 at 10:30 Potassium Chloride/Dextrose/ Sod Cl 1,000 ml @ 75 mls/hr [id number] IV Last administered on 07/28/17 05:40; Start 07/27/17 at 10:30 Ondansetron HCl (Zofran) 4 mg PRN Q6HRS PRN IV NAUSEA/VOMITING; Start at 10:30 Morphine Sulfate 2 mg Q4HRS PRN IV PAIN; Start 07/27/17 at 10:30 Morphine Sulfate 4 mg Q4HRS PRN IV PAIN; Start 07/27/17 at 10:30 Fentanyl Citrate (Fentanyl 2ml Vial) 25 mcg PRN Q5MIN PRN IV MILD PAIN; Start 07/28/17 at 07:00; Stop 07/29/17 at 06:59 Fentanyl Citrate (Fentanyl 2ml Vial) 50 mcg PRN Q5MIN PRN IV MODERATE PAIN Last administered on 07/28/17 10:32; Start 07/28/17 at 07:00; Stop 07/29/17 at 06:59 Morphine Sulfate 1 mg PRN Q10MIN PRN IV SEVERE PAIN; Start 07/28/17 at 07:00; Stop 07/29/17 at 06:59 Ringer's Solution 1,000 ml @ 30 mls/hr Q24H IV Last administered on 07:00; Start 07/28/17 at 07:00; Stop 07/28/17 at 18:59 Lidocaine HCl (Xylocaine-Mpf 1% Vial) 2 ml PRN 1X PRN ID IV START; Start 07/28 at 07:00; Stop 07/29/17 at 06:59 Hydromorphone HCl (Dilaudid) 0.5 mg PRN Q10MIN PRN IV SEV PAIN, Second choice; Start 07/28/17 at 07:00; Stop 07/29/17 at 06:59 Prochlorperazine Edisylate (Compazine) 5 mg PACU PRN PRN IV NAUSEA, MRX1 Last administered on 07/28/17 10:08; Start 07/28/17 at 07:00; Stop 07/29/17 at 06 :59 Metoprolol Tartrate (Lopressor) 12.5 mg BID PO Last administered on 07/27/17 20:56; Start 07/27/17 at 13:30 Aspirin (Ecotrin) 81 mg [id number] PO ; Start 07/27/17 at 13:30 Fentanyl Citrate (Fentanyl 2ml Vial) 50 mcg Q4HRS PRN IV PAIN Last administered on 07/27/17 18:54; Start 07/27/17 at 14:45 Fentanyl Citrate (Fentanyl 2ml Vial) 25 mcg PRN Q4HRS PRN IV PAIN; Start 07/27 at 14:45 Lactobacillus Rhamnosus (Culturelle) 1 cap BID PO Last administered on 20:55; Start 07/27/17 at 21:00 Sincalide 1.89 mcg/Sodium Chloride 30 ml @ 120 mls/hr 1X ONCE IV Last administered on 07/27/17 17:30; Start 07/27/17 at 17:30; Stop 07/27/17 at 17 :44; Status DC Iohexol (Omnipaque 300 Mg/ml) 50 ml STK-MED ONCE .ROUTE Last administered on 11 /15/17at 08:57; Start 07/28/17 at 07:05; Stop 07/28/17 at 07:06; Status DC Bupivacaine HCl/ Epinephrine Bitart (Sensorcain-Mpf Epi 0.5%-[id number]) 30 ml STK -MED ONCE .ROUTE Last administered on 07/28/17t 08:41; Start 07/28/17 at 07: 05; Stop 07/28/17 at 07:06; Status DC Cellulose 1 each STK-MED ONCE .ROUTE ; Start 07/28/17 at 07:05; Stop 07/28/17 at 07:06; Status DC Dexamethasone Sodium Phosphate (Decadron) 20 mg STK-MED ONCE .ROUTE ; Start at 07:14; Stop 07/28/17 at 07:15; Status DC Ondansetron HCl (Zofran) 4 mg STK-MED ONCE .ROUTE ; Start 07/28/17 at 07:14; Stop 07/28/17 at 07:15; Status DC Propofol 20 ml @ As Directed STK-MED ONCE IV ; Start 07/28/17 at 07:14; Stop 07/28/17 at 07:15; Status DC Lidocaine HCl (Lidocaine Pf 2% Vial) 5 ml STK-MED ONCE .ROUTE ; Start 07/28/17 at 07:14; Stop 07/28/17 at 07:15; Status DC Fentanyl Citrate (Fentanyl 2ml Vial) 100 mcg STK-MED ONCE .ROUTE ; Start at 07:14; Stop 07/28/17 at 07:15; Status DC Rocuronium [place] (Zemuron) 50 mg STK-MED ONCE .ROUTE ; Start 07/28/17 at 07: 14; Stop 07/28/17 at 07:15; Status DC Phenylephrine HCl 1 mg STK-MED ONCE IV ; Start 07/28/17 at 08:48; Stop at 08:49; Status DC Neostigmine Methylsulfate (Bloxiverz) 10 mg STK-MED ONCE .ROUTE ; Start at 08:48; Stop 07/28/17 at 08:49; Status DC Glycopyrrolate (Robinul) 1 mg STK-MED ONCE .ROUTE ; Start 07/28/17 at 08:48; Stop 07/28/17 at 08:49; Status DC Magnesium Sulfate/ Dextrose 50 ml @ 25 mls/hr 1X ONCE IV ; Start 07/28/17 at 09:30; Stop 07/28/17 at 11:29 Metoprolol Tartrate (Lopressor Vial) 5 mg STK-MED ONCE .ROUTE ; Start 07/28/17 at 08:50; Stop 07/28/17 at 08:51; Status DC Sevoflurane (Ultane) 60 ml STK-MED ONCE IH ; Start 07/28/17 at 09:00; Stop at 09:01; Status DC Oxycodone/ Acetaminophen (Percocet 5/325) 1 tab PRN Q4HRS PRN PO PAIN; Start 07/28/17 at 09:30 Oxycodone/ Acetaminophen (Percocet 5/325) 2 tab PRN Q4HRS PRN PO PAIN; Start 07/28/17 at 09:45 Fentanyl Citrate (Fentanyl 2ml Vial) 100 mcg STK-MED ONCE .ROUTE ; Start at 09:50; Stop 07/28/17 at 09:51; Status DC Prochlorperazine Edisylate (Compazine) 10 mg STK-MED ONCE .ROUTE ; Start at 10:05; Stop 07/28/17 at 10:06; Status DC Active Scripts Active Reported Keppra (Levetiracetam) 500 Mg Tablet 500 Mg PO BID Citalopram Hbr (Citalopram Hydrobromide) 20 Mg Tablet 1 Tab PO DAILY Omeprazole 40 Mg Capsule.dr 1 Cap PO DAILY Losartan Potassium 100 Mg Tablet 100 Mg PO DAILY Carvedilol 6.25 Mg Tablet 1 Tab PO BID Aspirin 81 Mg Tab.chew 1 Tab PO DAILY Vitamin D (Cholecalciferol (Vitamin D3)) 2,000 Unit Capsule 1 Cap PO DAILY Vitals/I & O Vital Sign - Last 24 Hours 07/27/17 07/27/17 07/27/17 07/27/17 11:08 11:25 11:36 15:27 Temp 98.7 98.7 Pulse 90 Resp 20 B/P (MAP) 107/64 (78) Pulse Ox 94 95 94 95 O2 Delivery Room Air Room Air Room Air Room Air 07/27/17 07/27/17 07/27/17 07/27/17 15:46 18:54 19:10 19:24 Temp 99.7 100.6 99.7 100.6 Pulse 95 Resp 22 20 B/P (MAP) 97/68 (78) 111/65 (80) Pulse Ox 95 92 92 O2 Delivery Room Air Room Air Room Air 07/27/17 07/27/17 07/27/17 07/27/17 20:00 20:28 20:56 23:10 Temp 100.0 100.0 Pulse 95 91 Resp 22 B/P (MAP) 111/65 148/81 (103) Pulse Ox 94 92 O2 Delivery Room Air Room Air Room Air 07/28/17 07/28/17 07/28/17 07/28/17 03:10 06:55 09:34 09:34 Temp 98.4 97.2 98.4 98.4 97.2 98.4 Pulse 87 81 74 Resp 20 15 20 B/P (MAP) 114/62 (79) 119/78 140/81 Pulse Ox 96 94 100 O2 Delivery Room Air Room Air Mask Simple Mask O2 Flow Rate 10 10 07/28/17 07/28/17 07/28/17 07/28/17 09:49 10:04 10:09 10:19 Temp 98.0 98.0 Pulse 87 86 90 Resp 27 16 26 B/P (MAP) 151/82 135/78 129/71 Pulse Ox 93 99 94 94 O2 Delivery Nasal Cannula Nasal Cannula Nasal Cannula Nasal Cannula O2 Flow Rate 2 2 2.0 2 07/28/17 10:34 Pulse 72 Resp 24 B/P (MAP) 118/79 Pulse Ox 93 O2 Delivery Nasal Cannula O2 Flow Rate 2 Intake and Output 07/27/17 07/27/17 07/28/17 15:00 23:00 07:00 Intake Total 0 ml 0 ml Output Total 400 ml Balance 0 ml -400 ml ZOEY THOMAS MD Jul 28, 2017 10:42
[2017-07-28] MEDS: FAMOTIDINE 20 MG/2 ML VIAL IVP SCH ×2 (11:19→20:54)
--- NOTE | 2017-07-28 11:58 | PDOC ---
CARDIO Progress Notes Date and Time Date of Service 07/28/17 Time of Evaluation 1150 Subjective Subjective: No Chest Pain, No shortness of breath, No Palpitations, Other (c/o abdominal pain; s/p lap gregoria) Vitals Vitals Vital Signs Date Time Temp Pulse Resp B/P (MAP) Pulse Ox O2 Delivery O2 Flow Rate FiO2 07/28/17 10:34 72 24 118/79 93 Nasal Cannula 2 07/28/17 10:19 98.0 98.0 Weight Weight [ ] Input and Output Intake and Output Intake and Output 07/28/17 07:00 Intake Total 0 ml Output Total 400 ml Balance -400 ml Intake Oral 0 ml Output Urine Total 400 ml Laboratory Labs Laboratory Tests Test 07/28/17 03:50 White Blood Count 19.0 x10^3/uL (4.0-11.0) Red Blood Count 4.48 x10^6/uL (4.30-5.70) Hemoglobin 14.1 g/dL (13.0-17.5) Hematocrit 42.5 % (39.0-53.0) Mean Corpuscular Volume 95 fL (79-100) Mean Corpuscular Hemoglobin 32 pg (25-35) Mean Corpuscular Hemoglobin Concent 33 g/dL (31-37) Red Cell Distribution Width 14.4 % (11.5-14.5) Platelet Count 163 x10^3/uL (140-400) Neutrophils (%) (Auto) 85 % (31-73) Lymphocytes (%) (Auto) 5 % (24-48) Monocytes (%) (Auto) 10 % (0-9) Eosinophils (%) (Auto) 0 % (0-3) Basophils (%) (Auto) 0 % (0-3) Neutrophils # (Auto) 16.2 x10^3uL (1.8-7.7) Lymphocytes # (Auto) 0.9 x10^3/uL (1.0-4.8) Monocytes # (Auto) 1.9 x10^3/uL (0.0-1.1) Eosinophils # (Auto) 0.0 x10^3/uL (0.0-0.7) Basophils # (Auto) 0.0 x10^3/uL (0.0-0.2) Prothrombin Time 15.4 SEC (11.7-14.0) Prothromb Time International Ratio 1.3 (0.8-1.1) Sodium Level 139 mmol/L (136-145) Potassium Level 3.5 mmol/L (3.5-5.1) Chloride Level 103 mmol/L (98-107) Carbon Dioxide Level 26 mmol/L (21-32) Anion Gap 10 (6-14) Blood Urea Nitrogen 36 mg/dL (8-26) Creatinine 1.3 mg/dL (0.7-1.3) Estimated GFR (Cockcroft-Gault) 55.2 Glucose Level 117 mg/dL (70-99) Calcium Level 8.9 mg/dL (8.5-10.1) Total Bilirubin 0.8 mg/dL (0.2-1.0) Direct Bilirubin 0.3 mg/dL (0.0-0.2) Aspartate Amino Transf (AST/SGOT) 15 U/L (15-37) Alanine Aminotransferase (ALT/SGPT) 17 U/L (16-63) Alkaline Phosphatase 93 U/L (46-116) Total Protein 6.8 g/dL (6.4-8.2) Albumin 2.4 g/dL (3.4-5.0) Microbiology Micro Microbiology 07/26/17 Blood Culture - Preliminary, Resulted NO GROWTH AFTER 1 DAY Physical Exam HEENT: Neck Supple W Full Motion Chest: Symmetric LUNGS: Clear to Auscultation Heart: S1S2, RRR (tele SR with PAC's ) Abdomen: Soft N/T, Other (abdominal tenderness, lap gregoria sites) Extremities: No Edema, No Calf Tenderness Neurology: alert, oriented, follow commands, other (drowsy) Assessment Assessment 1. AFIB, paroxysmal. new onset in the setting of acute pain and acute cholecystitis. now maintaining SR. Echo showed low-normal LV systolic function with normal wall motion. No significant valvular abnormalities 2. Hypertension; controlled 3. Abdominal pain with acute cholecystitis; s/p lap gregoria 4. Leukocytosis with fevers 5. Alcoholism Recommendations Continue low-dose metoprolol for rate control. [id number]= 1; ASA for stroke prevention Consider outpatient event monitor to note AFIB burden and guide need for anticoagulation therapy. Supportive care, maintain adequate pain control Post op management as per surgical team GIANLUCA DAVIDSON APRN Jul 28, 2017 11:58
--- NOTE | 2017-07-28 12:01 | PDOC ---
Subjective: Subjective: Feels a little better, all things considering. Objective: Objective: Tmax 100.6 Vital Signs: Vital Signs Date Time Temp Pulse Resp B/P (MAP) Pulse Ox O2 Delivery O2 Flow Rate FiO2 07/28/17 11:00 99.0 81 17 137/74 (95) 93 Room Air 99.0 07/28/17 10:34 2 Labs: Laboratory Tests Test 07/28/17 03:50 White Blood Count 19.0 x10^3/uL Red Blood Count 4.48 x10^6/uL Hemoglobin 14.1 g/dL Hematocrit 42.5 % Mean Corpuscular Volume 95 fL Mean Corpuscular Hemoglobin 32 pg Mean Corpuscular Hemoglobin Concent 33 g/dL Red Cell Distribution Width 14.4 % Platelet Count 163 x10^3/uL Neutrophils (%) (Auto) 85 % Lymphocytes (%) (Auto) 5 % Monocytes (%) (Auto) 10 % Eosinophils (%) (Auto) 0 % Basophils (%) (Auto) 0 % Neutrophils # (Auto) 16.2 x10^3uL Lymphocytes # (Auto) 0.9 x10^3/uL Monocytes # (Auto) 1.9 x10^3/uL Eosinophils # (Auto) 0.0 x10^3/uL Basophils # (Auto) 0.0 x10^3/uL Prothrombin Time 15.4 SEC Prothromb Time International Ratio 1.3 Sodium Level 139 mmol/L Potassium Level 3.5 mmol/L Chloride Level 103 mmol/L Carbon Dioxide Level 26 mmol/L Anion Gap 10 Blood Urea Nitrogen 36 mg/dL Creatinine 1.3 mg/dL Estimated GFR (Cockcroft-Gault) 55.2 Glucose Level 117 mg/dL Calcium Level 8.9 mg/dL Total Bilirubin 0.8 mg/dL Direct Bilirubin 0.3 mg/dL Aspartate Amino Transf (AST/SGOT) 15 U/L Alanine Aminotransferase (ALT/SGPT) 17 U/L Alkaline Phosphatase 93 U/L Total Protein 6.8 g/dL Albumin 2.4 g/dL Imaging: CXR 07/27/17 IMPRESSION: No acute cardiopulmonary abnormality is detected. HIDA 07/27/17 IMPRESSION: 1. No evidence of cystic duct or common bile duct obstruction. 2. Decreased gallbladder ejection fraction of 27%. IOC 07/28/17 IMPRESSION: Small distal common bile duct lucency raising the possibility of a retained calculus. PE: GEN: NAD LUNGS: clear, nasal cannula HEART: RR ABD: mild incisional tenderness, drain NEURO/PSYCH: A & O 3 A/P: S/p lap gregoria for severe cholecystitis Leukocytosis (improved), fever ?abnormal IOC -- Will review IOC w/ Dr. Patel. Normal bili, LFTs. Diet per surgery. Add PO PPI. TONG DAMON Jul 28, 2017 12:01
[2017-07-29 03:34] VITALS: BP 139/80
[2017-07-29] MEDS: POTASSIUM CL 20MEQ D5-0.45NACL 1,000 ML IV SCH (05:48)
[2017-07-29] MEDS: PIPERACILLIN/TAZO IV Push 3.375 GM VIAL. IVP SCH (05:48)
[2017-07-29 06:52] LABS: BASO % 0 % (0-3); EOS % 0 % (0-3); HEMATOCRIT 40.5 % (39.0-53.0); HEMOGLOBIN 13.1 g/dL (13.0-17.5); LYMPH # 0.7 x10^3/uL (1.0-4.8); LYMPH % 5 % (24-48); MEAN CORPUSCULAR HEMOGLOBIN 31 pg (25-35); MEAN CORPUSCULAR HGB CONC 32 g/dL (31-37); MEAN CORPUSCULAR VOLUME 97 fL (79-100); MONO % 7 % (0-9); NEUT % 88 % (31-73); PLATELET COUNT 215 x10^3/uL (140-400); RED BLOOD COUNT 4.18 x10^6/uL (4.30-5.70); RED CELL DISTRIBUTION WIDTH 14.3 % (11.5-14.5); WHITE BLOOD COUNT 12.3 x10^3/uL (4.0-11.0)
[2017-07-29 06:58] LABS: ALBUMIN 2.6 g/dL (3.4-5.0); CALCIUM 9.2 mg/dL (8.5-10.1); CREATININE 1.3 mg/dL (0.7-1.3); DIRECT BILIRUBIN 0.2 mg/dL (0.0-0.2); GFR 55.2; POTASSIUM 4.8 mmol/L (3.5-5.1); TOTAL BILIRUBIN 0.5 mg/dL (0.2-1.0)
[2017-07-29 07:31] VITALS: BP 138/86
[2017-07-29] MEDS: IPRATRPIUM/ALBUTEROL 0.5/2.5MG 3 ML NEBU. NEB SCH ×4 (08:07→19:23)
[2017-07-29] MEDS: LACTOBACILLUS RHAMNOSUS GG 1 CAPSULE. PO SCH ×2 (08:39→21:35)
[2017-07-29] MEDS: ASPIRIN ENTERIC COATED 81 MG TABLET.DR. PO SCH (08:39)
[2017-07-29] MEDS: METOPROLOL TART IMMED RELEASE 25 MG TABLET. PO SCH ×2 (08:40→21:29)
[2017-07-29] MEDS: PANTOPRAZOLE 40 MG TABLET.DR. PO SCH (08:40)
[2017-07-29] MEDS: FAMOTIDINE 20 MG/2 ML VIAL IVP SCH (08:41)
--- NOTE | 2017-07-29 09:45 | PDOC ---
PULMONARY PROGRESS NOTES Subjective no soa Vitals Vital Signs Date Time Temp Pulse Resp B/P (MAP) Pulse Ox O2 Delivery O2 Flow Rate FiO2 07/29/17 08:40 71 138/86 07/29/17 08:07 94 Room Air 07/29/17 07:31 97.9 18 97.9 07/28/17 23:15 2.0 General: Alert, No acute distress Lungs: Clear Cardiovascular: S1 Abdomen: Soft, Other (mild tender RUQ) Neuro Exam: Alert Extremities: No Edema Skin: Warm Labs Laboratory Tests Test 07/27/17 10:30 07/28/17 03:50 07/29/17 05:30 Prothrombin Time 15.5 SEC (11.7-14.0) 15.4 SEC (11.7-14.0) Prothromb Time International Ratio 1.3 (0.8-1.1) 1.3 (0.8-1.1) White Blood Count 19.0 x10^3/uL (4.0-11.0) 12.3 x10^3/uL (4.0-11.0) Red Blood Count 4.48 x10^6/uL (4.30-5.70) 4.18 x10^6/uL (4.30-5.70) Hemoglobin 14.1 g/dL (13.0-17.5) 13.1 g/dL (13.0-17.5) Hematocrit 42.5 % (39.0-53.0) 40.5 % (39.0-53.0) Mean Corpuscular Volume 95 fL (79-100) 97 fL (79-100) Mean Corpuscular Hemoglobin 32 pg (25-35) 31 pg (25-35) Mean Corpuscular Hemoglobin Concent 33 g/dL (31-37) 32 g/dL (31-37) Red Cell Distribution Width 14.4 % (11.5-14.5) 14.3 % (11.5-14.5) Platelet Count 163 x10^3/uL (140-400) 215 x10^3/uL (140-400) Neutrophils (%) (Auto) 85 % (31-73) 88 % (31-73) Lymphocytes (%) (Auto) 5 % (24-48) 5 % (24-48) Monocytes (%) (Auto) 10 % (0-9) 7 % (0-9) Eosinophils (%) (Auto) 0 % (0-3) 0 % (0-3) Basophils (%) (Auto) 0 % (0-3) 0 % (0-3) Neutrophils # (Auto) 16.2 x10^3uL (1.8-7.7) 10.8 x10^3uL (1.8-7.7) Lymphocytes # (Auto) 0.9 x10^3/uL (1.0-4.8) 0.7 x10^3/uL (1.0-4.8) Monocytes # (Auto) 1.9 x10^3/uL (0.0-1.1) 0.8 x10^3/uL (0.0-1.1) Eosinophils # (Auto) 0.0 x10^3/uL (0.0-0.7) 0.0 x10^3/uL (0.0-0.7) Basophils # (Auto) 0.0 x10^3/uL (0.0-0.2) 0.0 x10^3/uL (0.0-0.2) Sodium Level 139 mmol/L (136-145) 138 mmol/L (136-145) Potassium Level 3.5 mmol/L (3.5-5.1) 4.8 mmol/L (3.5-5.1) Chloride Level 103 mmol/L (98-107) 103 mmol/L (98-107) Carbon Dioxide Level 26 mmol/L (21-32) 26 mmol/L (21-32) Anion Gap 10 (6-14) 9 (6-14) Blood Urea Nitrogen 36 mg/dL (8-26) 30 mg/dL (8-26) Creatinine 1.3 mg/dL (0.7-1.3) 1.3 mg/dL (0.7-1.3) Estimated GFR (Cockcroft-Gault) 55.2 55.2 Glucose Level 117 mg/dL (70-99) 126 mg/dL (70-99) Calcium Level 8.9 mg/dL (8.5-10.1) 9.2 mg/dL (8.5-10.1) Total Bilirubin 0.8 mg/dL (0.2-1.0) 0.5 mg/dL (0.2-1.0) Direct Bilirubin 0.3 mg/dL (0.0-0.2) 0.2 mg/dL (0.0-0.2) Aspartate Amino Transf (AST/SGOT) 15 U/L (15-37) 21 U/L (15-37) Alanine Aminotransferase (ALT/SGPT) 17 U/L (16-63) 16 U/L (16-63) Alkaline Phosphatase 93 U/L (46-116) 81 U/L (46-116) Total Protein 6.8 g/dL (6.4-8.2) 7.0 g/dL (6.4-8.2) Albumin 2.4 g/dL (3.4-5.0) 2.6 g/dL (3.4-5.0) Laboratory Tests Test 07/29/17 05:30 White Blood Count 12.3 x10^3/uL (4.0-11.0) Red Blood Count 4.18 x10^6/uL (4.30-5.70) Hemoglobin 13.1 g/dL (13.0-17.5) Hematocrit 40.5 % (39.0-53.0) Mean Corpuscular Volume 97 fL (79-100) Mean Corpuscular Hemoglobin 31 pg (25-35) Mean Corpuscular Hemoglobin Concent 32 g/dL (31-37) Red Cell Distribution Width 14.3 % (11.5-14.5) Platelet Count 215 x10^3/uL (140-400) Neutrophils (%) (Auto) 88 % (31-73) Lymphocytes (%) (Auto) 5 % (24-48) Monocytes (%) (Auto) 7 % (0-9) Eosinophils (%) (Auto) 0 % (0-3) Basophils (%) (Auto) 0 % (0-3) Neutrophils # (Auto) 10.8 x10^3uL (1.8-7.7) Lymphocytes # (Auto) 0.7 x10^3/uL (1.0-4.8) Monocytes # (Auto) 0.8 x10^3/uL (0.0-1.1) Eosinophils # (Auto) 0.0 x10^3/uL (0.0-0.7) Basophils # (Auto) 0.0 x10^3/uL (0.0-0.2) Sodium Level 138 mmol/L (136-145) Potassium Level 4.8 mmol/L (3.5-5.1) Chloride Level 103 mmol/L (98-107) Carbon Dioxide Level 26 mmol/L (21-32) Anion Gap 9 (6-14) Blood Urea Nitrogen 30 mg/dL (8-26) Creatinine 1.3 mg/dL (0.7-1.3) Estimated GFR (Cockcroft-Gault) 55.2 Glucose Level 126 mg/dL (70-99) Calcium Level 9.2 mg/dL (8.5-10.1) Total Bilirubin 0.5 mg/dL (0.2-1.0) Direct Bilirubin 0.2 mg/dL (0.0-0.2) Aspartate Amino Transf (AST/SGOT) 21 U/L (15-37) Alanine Aminotransferase (ALT/SGPT) 16 U/L (16-63) Alkaline Phosphatase 81 U/L (46-116) Total Protein 7.0 g/dL (6.4-8.2) Albumin 2.6 g/dL (3.4-5.0) Medications Active Scripts Medications Dose Route/Sig Max Daily Dose Days Date Category Keppra (Levetiracetam) 500 Mg Tablet 500 Mg PO BID 07/26/17 Reported Citalopram Hbr (Citalopram Hydrobromide) 20 Mg Tablet 1 Tab PO DAILY 07/26/17 Reported Omeprazole 40 Mg Capsule. 1 Cap PO DAILY 07/26/17 Reported Losartan Potassium 100 Mg Tablet 100 Mg PO DAILY 07/26/17 Reported Carvedilol 6.25 Mg Tablet 1 Tab PO BID 07/26/17 Reported Aspirin 81 Mg Tab.chew 1 Tab PO DAILY 07/26/17 Reported Vitamin D (Cholecalciferol (Vitamin D3)) 2,000 Unit Capsule 1 Cap PO DAILY 07/26/17 Reported Impression . 1. Right upper quadrant pain secondary to acute cholecystitis/colitis. s/p Lap Choli 2. Underlying chronic obstructive pulmonary disease, seems to be clinically compensated. Chest x-ray is clear. 3. Suspected obstructive sleep apnea. He says he is scheduled for sleep study in 2 weeks from now. 4. Fever secondary to acute cholecystitis. Plan . 1. Continue with broad-spectrum antibiotics. 2. Bronchodilators as scheduled. 3. Full PFTs as an outpatient. 4. Sleep study as an outpatient. 5. Follow surgical recommendation HENRY MAX MD Jul 29, 2017 09:45
[2017-07-29] MEDS ORDERED: GABA600T2 PO (09:59)
[2017-07-29] MEDS ORDERED: DIVA500T9 PO (09:59)
--- NOTE | 2017-07-29 10:22 | PDOC ---
Infectious Disease Note Subjective Subjective Doing well. Less pain + BM Ate breakfast already ROS ROS GEN: Denies fevers, chills, sweats HEENT: Denies blurred vision, sore throat CV: Denies chest pain RESP: Denies shortness of air, cough GI: Denies n/v/d NEURO: Denies confusion, dizziness MSK: Denies weakness, joint pain/swelling Vital Sign Vital Signs Vital Signs Date Time Temp Pulse Resp B/P (MAP) Pulse Ox O2 Delivery O2 Flow Rate FiO2 07/29/17 08:40 71 138/86 07/29/17 08:07 94 Room Air 07/29/17 07:31 97.9 18 97.9 07/29/17 07:00 2.0 Physical Exam PHYSICAL EXAM GENERAL: NAD, Alert HEENT: PERRL, OC/OP - clear NECK: Supple, no JVD, no LN LUNGS: Clear HEART: S1S2, no gallop, no murmur ABD: Soft, min distension, Rickey with serosanginous fluid EXT: No edema, no cyanosis [employer]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, 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 x 3, no focal neurologic deficit SKIN: No rash IV: ok Labs Lab Laboratory Tests Test 07/29/17 05:30 White Blood Count 12.3 x10^3/uL (4.0-11.0) Red Blood Count 4.18 x10^6/uL (4.30-5.70) Hemoglobin 13.1 g/dL (13.0-17.5) Hematocrit 40.5 % (39.0-53.0) Mean Corpuscular Volume 97 fL (79-100) Mean Corpuscular Hemoglobin 31 pg (25-35) Mean Corpuscular Hemoglobin Concent 32 g/dL (31-37) Red Cell Distribution Width 14.3 % (11.5-14.5) Platelet Count 215 x10^3/uL (140-400) Neutrophils (%) (Auto) 88 % (31-73) Lymphocytes (%) (Auto) 5 % (24-48) Monocytes (%) (Auto) 7 % (0-9) Eosinophils (%) (Auto) 0 % (0-3) Basophils (%) (Auto) 0 % (0-3) Neutrophils # (Auto) 10.8 x10^3uL (1.8-7.7) Lymphocytes # (Auto) 0.7 x10^3/uL (1.0-4.8) Monocytes # (Auto) 0.8 x10^3/uL (0.0-1.1) Eosinophils # (Auto) 0.0 x10^3/uL (0.0-0.7) Basophils # (Auto) 0.0 x10^3/uL (0.0-0.2) Sodium Level 138 mmol/L (136-145) Potassium Level 4.8 mmol/L (3.5-5.1) Chloride Level 103 mmol/L (98-107) Carbon Dioxide Level 26 mmol/L (21-32) Anion Gap 9 (6-14) Blood Urea Nitrogen 30 mg/dL (8-26) Creatinine 1.3 mg/dL (0.7-1.3) Estimated GFR (Cockcroft-Gault) 55.2 Glucose Level 126 mg/dL (70-99) Calcium Level 9.2 mg/dL (8.5-10.1) Total Bilirubin 0.5 mg/dL (0.2-1.0) Direct Bilirubin 0.2 mg/dL (0.0-0.2) Aspartate Amino Transf (AST/SGOT) 21 U/L (15-37) Alanine Aminotransferase (ALT/SGPT) 16 U/L (16-63) Alkaline Phosphatase 81 U/L (46-116) Total Protein 7.0 g/dL (6.4-8.2) Albumin 2.6 g/dL (3.4-5.0) Objective Assessment Fever -better Leukocytosis - better Acute Cholecystitis - s/p lap gregoria 07/28 Colitis - ? reactive H/o C-diff 08/02/2015 ETOH abuse Plan Plan of Care Cont Zosyn/Flagyl Change to po Augmentin and monitor F/u labs and cults IDA TOVAR MD Jul 29, 2017 10:22
[2017-07-29 10:45] VITALS: BP 119/80
--- NOTE | 2017-07-29 11:39 | PDOC ---
RYLIE FINN STUDY ABROAD COORDINATOR 07/29/17 1139: SURGICAL PROGRESS NOTE Subjective tolerating diet minimal pain no n/v Vital Signs Vital Signs Date Time Temp Pulse Resp B/P (MAP) Pulse Ox O2 Delivery O2 Flow Rate FiO2 07/29/17 10:45 98.7 87 19 119/80 (93) 96 Room Air 98.7 07/29/17 07:00 2.0 I&O Intake and Output 07/29/17 07:00 Intake Total 2170 ml Output Total 510 ml Balance 1660 ml Intake Oral 370 ml IV Total 1800 ml Output Urine Total 400 ml Drainage Total 110 ml # Voids 1 General: Alert, Oriented X3, Cooperative, No acute distress Abdomen: Soft, Other (ND, HARMONY dark serosang drainage, lap site dressings dry ) Labs Laboratory Tests Test 07/28/17 03:50 07/29/17 05:30 White Blood Count 19.0 x10^3/uL (4.0-11.0) 12.3 x10^3/uL (4.0-11.0) Red Blood Count 4.48 x10^6/uL (4.30-5.70) 4.18 x10^6/uL (4.30-5.70) Hemoglobin 14.1 g/dL (13.0-17.5) 13.1 g/dL (13.0-17.5) Hematocrit 42.5 % (39.0-53.0) 40.5 % (39.0-53.0) Mean Corpuscular Volume 95 fL (79-100) 97 fL (79-100) Mean Corpuscular Hemoglobin 32 pg (25-35) 31 pg (25-35) Mean Corpuscular Hemoglobin Concent 33 g/dL (31-37) 32 g/dL (31-37) Red Cell Distribution Width 14.4 % (11.5-14.5) 14.3 % (11.5-14.5) Platelet Count 163 x10^3/uL (140-400) 215 x10^3/uL (140-400) Neutrophils (%) (Auto) 85 % (31-73) 88 % (31-73) Lymphocytes (%) (Auto) 5 % (24-48) 5 % (24-48) Monocytes (%) (Auto) 10 % (0-9) 7 % (0-9) Eosinophils (%) (Auto) 0 % (0-3) 0 % (0-3) Basophils (%) (Auto) 0 % (0-3) 0 % (0-3) Neutrophils # (Auto) 16.2 x10^3uL (1.8-7.7) 10.8 x10^3uL (1.8-7.7) Lymphocytes # (Auto) 0.9 x10^3/uL (1.0-4.8) 0.7 x10^3/uL (1.0-4.8) Monocytes # (Auto) 1.9 x10^3/uL (0.0-1.1) 0.8 x10^3/uL (0.0-1.1) Eosinophils # (Auto) 0.0 x10^3/uL (0.0-0.7) 0.0 x10^3/uL (0.0-0.7) Basophils # (Auto) 0.0 x10^3/uL (0.0-0.2) 0.0 x10^3/uL (0.0-0.2) Prothrombin Time 15.4 SEC (11.7-14.0) Prothromb Time International Ratio 1.3 (0.8-1.1) Sodium Level 139 mmol/L (136-145) 138 mmol/L (136-145) Potassium Level 3.5 mmol/L (3.5-5.1) 4.8 mmol/L (3.5-5.1) Chloride Level 103 mmol/L (98-107) 103 mmol/L (98-107) Carbon Dioxide Level 26 mmol/L (21-32) 26 mmol/L (21-32) Anion Gap 10 (6-14) 9 (6-14) Blood Urea Nitrogen 36 mg/dL (8-26) 30 mg/dL (8-26) Creatinine 1.3 mg/dL (0.7-1.3) 1.3 mg/dL (0.7-1.3) Estimated GFR (Cockcroft-Gault) 55.2 55.2 Glucose Level 117 mg/dL (70-99) 126 mg/dL (70-99) Calcium Level 8.9 mg/dL (8.5-10.1) 9.2 mg/dL (8.5-10.1) Total Bilirubin 0.8 mg/dL (0.2-1.0) 0.5 mg/dL (0.2-1.0) Direct Bilirubin 0.3 mg/dL (0.0-0.2) 0.2 mg/dL (0.0-0.2) Aspartate Amino Transf (AST/SGOT) 15 U/L (15-37) 21 U/L (15-37) Alanine Aminotransferase (ALT/SGPT) 17 U/L (16-63) 16 U/L (16-63) Alkaline Phosphatase 93 U/L (46-116) 81 U/L (46-116) Total Protein 6.8 g/dL (6.4-8.2) 7.0 g/dL (6.4-8.2) Albumin 2.4 g/dL (3.4-5.0) 2.6 g/dL (3.4-5.0) Laboratory Tests Test 07/29/17 05:30 White Blood Count 12.3 x10^3/uL (4.0-11.0) Red Blood Count 4.18 x10^6/uL (4.30-5.70) Hemoglobin 13.1 g/dL (13.0-17.5) Hematocrit 40.5 % (39.0-53.0) Mean Corpuscular Volume 97 fL (79-100) Mean Corpuscular Hemoglobin 31 pg (25-35) Mean Corpuscular Hemoglobin Concent 32 g/dL (31-37) Red Cell Distribution Width 14.3 % (11.5-14.5) Platelet Count 215 x10^3/uL (140-400) Neutrophils (%) (Auto) 88 % (31-73) Lymphocytes (%) (Auto) 5 % (24-48) Monocytes (%) (Auto) 7 % (0-9) Eosinophils (%) (Auto) 0 % (0-3) Basophils (%) (Auto) 0 % (0-3) Neutrophils # (Auto) 10.8 x10^3uL (1.8-7.7) Lymphocytes # (Auto) 0.7 x10^3/uL (1.0-4.8) Monocytes # (Auto) 0.8 x10^3/uL (0.0-1.1) Eosinophils # (Auto) 0.0 x10^3/uL (0.0-0.7) Basophils # (Auto) 0.0 x10^3/uL (0.0-0.2) Sodium Level 138 mmol/L (136-145) Potassium Level 4.8 mmol/L (3.5-5.1) Chloride Level 103 mmol/L (98-107) Carbon Dioxide Level 26 mmol/L (21-32) Anion Gap 9 (6-14) Blood Urea Nitrogen 30 mg/dL (8-26) Creatinine 1.3 mg/dL (0.7-1.3) Estimated GFR (Cockcroft-Gault) 55.2 Glucose Level 126 mg/dL (70-99) Calcium Level 9.2 mg/dL (8.5-10.1) Total Bilirubin 0.5 mg/dL (0.2-1.0) Direct Bilirubin 0.2 mg/dL (0.0-0.2) Aspartate Amino Transf (AST/SGOT) 21 U/L (15-37) Alanine Aminotransferase (ALT/SGPT) 16 U/L (16-63) Alkaline Phosphatase 81 U/L (46-116) Total Protein 7.0 g/dL (6.4-8.2) Albumin 2.6 g/dL (3.4-5.0) Problem List Problems Medical Problems: (1) Abdominal pain Status: Acute (2) Cholecystitis Status: Acute (3) Gastritis Status: Acute (4) Leukocytosis Status: Acute Assessment/Plan s/p lap gregoria, severe cholecystitis abnormal IOC, LFTS normal--GI following, appears no plans at this point continue drain at DC--FU in clinic in 1 week ID managing abx Problems: JOEY ORTIZ MD 07/30/17 1308: SURGICAL PROGRESS NOTE Assessment/Plan agree with above Problems: RYLIE FINN STUDY ABROAD COORDINATOR Jul 29, 2017 11:39 JOEY ORTIZ MD Jul 30, 2017 13:08
--- NOTE | 2017-07-29 12:38 | PDOC ---
PROGRESS NOTES Subjective Subjective feels better. on a regular diet. will order most of home meds. lab reviewed. Objective Objective Vital Signs Date Time Temp Pulse Resp B/P (MAP) Pulse Ox O2 Delivery O2 Flow Rate FiO2 07/29/17 11:49 94 Room Air 07/29/17 10:45 98.7 87 19 119/80 (93) 98.7 07/29/17 07:00 2.0 Intake and Output 07/29/17 06:59 Intake Total 2170 ml Output Total 510 ml Balance 1660 ml Intake Oral 370 ml IV Total 1800 ml Output Urine Total 400 ml Drainage Total 110 ml # Voids 1 Physical Exam Abdomen: Soft Heart: Normal S1, Normal S2 Extremities: No edema General: Alert HEENT: Atraumatic Lungs: Clear to auscultation Neuro: Normal speech Psych/Mental Status: Mental status NL Skin: No rashes Assessment Assessment Problems1. lap cholecystectomy for acute severe cholecystitis. abnormal intra- operative cholangiogram with possible stone in distal bile duct 2. Leukocytosis. better 3. Coronary artery disease. 4. Hypertension. 5. Seizure disorder. paroxysmal atrial fibrillation copd Medical Problems: (1) Abdominal pain Status: Acute (2) Cholecystitis Status: Acute (3) Gastritis Status: Acute (4) Leukocytosis Status: Acute Plan Plan of Care continue augmentin ambulate resume oral keppra and d/c iv keppra continue metoprolol. off of carvedilol hold losartan as systolic bp on low side labs tomorrow monitor temperature and oral intake consider dismissal tomorrow await GI input on abnormal IOC Comment Review of Relevant I have reviewed the following items everett (where applicable) has been applied. Labs Laboratory Tests Test 07/28/17 03:50 07/29/17 05:30 White Blood Count 19.0 x10^3/uL (4.0-11.0) 12.3 x10^3/uL (4.0-11.0) Red Blood Count 4.48 x10^6/uL (4.30-5.70) 4.18 x10^6/uL (4.30-5.70) Hemoglobin 14.1 g/dL (13.0-17.5) 13.1 g/dL (13.0-17.5) Hematocrit 42.5 % (39.0-53.0) 40.5 % (39.0-53.0) Mean Corpuscular Volume 95 fL (79-100) 97 fL (79-100) Mean Corpuscular Hemoglobin 32 pg (25-35) 31 pg (25-35) Mean Corpuscular Hemoglobin Concent 33 g/dL (31-37) 32 g/dL (31-37) Red Cell Distribution Width 14.4 % (11.5-14.5) 14.3 % (11.5-14.5) Platelet Count 163 x10^3/uL (140-400) 215 x10^3/uL (140-400) Neutrophils (%) (Auto) 85 % (31-73) 88 % (31-73) Lymphocytes (%) (Auto) 5 % (24-48) 5 % (24-48) Monocytes (%) (Auto) 10 % (0-9) 7 % (0-9) Eosinophils (%) (Auto) 0 % (0-3) 0 % (0-3) Basophils (%) (Auto) 0 % (0-3) 0 % (0-3) Neutrophils # (Auto) 16.2 x10^3uL (1.8-7.7) 10.8 x10^3uL (1.8-7.7) Lymphocytes # (Auto) 0.9 x10^3/uL (1.0-4.8) 0.7 x10^3/uL (1.0-4.8) Monocytes # (Auto) 1.9 x10^3/uL (0.0-1.1) 0.8 x10^3/uL (0.0-1.1) Eosinophils # (Auto) 0.0 x10^3/uL (0.0-0.7) 0.0 x10^3/uL (0.0-0.7) Basophils # (Auto) 0.0 x10^3/uL (0.0-0.2) 0.0 x10^3/uL (0.0-0.2) Prothrombin Time 15.4 SEC (11.7-14.0) Prothromb Time International Ratio 1.3 (0.8-1.1) Sodium Level 139 mmol/L (136-145) 138 mmol/L (136-145) Potassium Level 3.5 mmol/L (3.5-5.1) 4.8 mmol/L (3.5-5.1) Chloride Level 103 mmol/L (98-107) 103 mmol/L (98-107) Carbon Dioxide Level 26 mmol/L (21-32) 26 mmol/L (21-32) Anion Gap 10 (6-14) 9 (6-14) Blood Urea Nitrogen 36 mg/dL (8-26) 30 mg/dL (8-26) Creatinine 1.3 mg/dL (0.7-1.3) 1.3 mg/dL (0.7-1.3) Estimated GFR (Cockcroft-Gault) 55.2 55.2 Glucose Level 117 mg/dL (70-99) 126 mg/dL (70-99) Calcium Level 8.9 mg/dL (8.5-10.1) 9.2 mg/dL (8.5-10.1) Total Bilirubin 0.8 mg/dL (0.2-1.0) 0.5 mg/dL (0.2-1.0) Direct Bilirubin 0.3 mg/dL (0.0-0.2) 0.2 mg/dL (0.0-0.2) Aspartate Amino Transf (AST/SGOT) 15 U/L (15-37) 21 U/L (15-37) Alanine Aminotransferase (ALT/SGPT) 17 U/L (16-63) 16 U/L (16-63) Alkaline Phosphatase 93 U/L (46-116) 81 U/L (46-116) Total Protein 6.8 g/dL (6.4-8.2) 7.0 g/dL (6.4-8.2) Albumin 2.4 g/dL (3.4-5.0) 2.6 g/dL (3.4-5.0) Laboratory Tests Test 07/29/17 05:30 White Blood Count 12.3 x10^3/uL (4.0-11.0) Red Blood Count 4.18 x10^6/uL (4.30-5.70) Hemoglobin 13.1 g/dL (13.0-17.5) Hematocrit 40.5 % (39.0-53.0) Mean Corpuscular Volume 97 fL (79-100) Mean Corpuscular Hemoglobin 31 pg (25-35) Mean Corpuscular Hemoglobin Concent 32 g/dL (31-37) Red Cell Distribution Width 14.3 % (11.5-14.5) Platelet Count 215 x10^3/uL (140-400) Neutrophils (%) (Auto) 88 % (31-73) Lymphocytes (%) (Auto) 5 % (24-48) Monocytes (%) (Auto) 7 % (0-9) Eosinophils (%) (Auto) 0 % (0-3) Basophils (%) (Auto) 0 % (0-3) Neutrophils # (Auto) 10.8 x10^3uL (1.8-7.7) Lymphocytes # (Auto) 0.7 x10^3/uL (1.0-4.8) Monocytes # (Auto) 0.8 x10^3/uL (0.0-1.1) Eosinophils # (Auto) 0.0 x10^3/uL (0.0-0.7) Basophils # (Auto) 0.0 x10^3/uL (0.0-0.2) Sodium Level 138 mmol/L (136-145) Potassium Level 4.8 mmol/L (3.5-5.1) Chloride Level 103 mmol/L (98-107) Carbon Dioxide Level 26 mmol/L (21-32) Anion Gap 9 (6-14) Blood Urea Nitrogen 30 mg/dL (8-26) Creatinine 1.3 mg/dL (0.7-1.3) Estimated GFR (Cockcroft-Gault) 55.2 Glucose Level 126 mg/dL (70-99) Calcium Level 9.2 mg/dL (8.5-10.1) Total Bilirubin 0.5 mg/dL (0.2-1.0) Direct Bilirubin 0.2 mg/dL (0.0-0.2) Aspartate Amino Transf (AST/SGOT) 21 U/L (15-37) Alanine Aminotransferase (ALT/SGPT) 16 U/L (16-63) Alkaline Phosphatase 81 U/L (46-116) Total Protein 7.0 g/dL (6.4-8.2) Albumin 2.6 g/dL (3.4-5.0) Microbiology 07/26/17 Blood Culture - Preliminary, Resulted NO GROWTH AFTER 2 DAYS Medications Current Medications Sodium Chloride 1,000 ml @ 1,000 mls/hr 1X ONCE IV Last administered on 07/26 16:42; Start 07/26/17 at 15:30; Stop 07/26/17 at 16:29; Status DC Hydromorphone HCl (Dilaudid) 1 mg 1X ONCE IV Last administered on 07/26/17 16:43; Start 07/26/17 at 15:30; Stop 07/26/17 at 15:32; Status DC Ondansetron HCl (Zofran) 4 mg 1X ONCE IV Last administered on 07/26/17 16:43 ; Start 07/26/17 at 15:30; Stop 07/26/17 at 15:32; Status DC Pantoprazole Sodium (Protonix Vial) 40 mg 1X ONCE IVP Last administered on 16:42; Start 07/26/17 at 15:30; Stop 07/26/17 at 15:32; Status DC Iohexol (Omnipaque 300 Mg/ml) 75 ml 1X ONCE IV Last administered on 16:23; Start 07/26/17 at 16:00; Stop 07/26/17 at 16:01; Status DC Info (Do NOT chart on this entry -- for MONITORING) 1 each PRN DAILY PRN MC SEE COMMENTS; Start 07/26/17 at 16:00; Stop 07/28/17 at 15:59; Status DC Piperacillin Sod/ Tazobactam Sod 3.375 gm/Dextrose 50 ml @ 100 mls/hr 1X ONCE IV ; Start 07/26/17 at 17:15; Stop 07/26/17 at 17:44; Status UNV Piperacillin Sod/ Tazobactam Sod (Zosyn) 3.375 gm 1X ONCE IVP Last administered on 07/26/17 17:28; Start 07/26/17 at 17:15; Stop 07/26/17 at 17 :16; Status DC Ondansetron HCl (Zofran) 4 mg PRN Q8HRS PRN IV NAUSEA/VOMITING Last administered on 07/27/17 08:36; Start 07/26/17 at 18:00; Stop 07/27/17 at 17 :59; Status DC Morphine Sulfate 4 mg PRN Q2HR PRN IV PAIN Last administered on 07/27/17 10: 38; Start 07/26/17 at 18:00; Stop 07/27/17 at 17:59; Status DC Piperacillin Sod/ Tazobactam Sod 3.375 gm/Dextrose 50 ml @ 100 mls/hr Q6HRS IV ; Start 07/26/17 at 18:00; Status UNV Potassium Chloride/Dextrose/ Sod Cl 1,000 ml @ 120 mls/hr 1X ONCE IV Last administered on 07/26/17 18:52; Start 07/26/17 at 18:30; Stop 07/27/17 at 02 :49; Status DC Famotidine (Pepcid Vial) 20 mg Q12HR IVP Last administered on 07/29/17 08:41 ; Start 07/26/17 at 21:00 Piperacillin Sod/ Tazobactam Sod (Zosyn) 3.375 gm Q6HRS IVP Last administered on 07/29/17 05:48; Start 07/27/17 at 00:00; Stop 07/29/17 at 10:21; Status DC Diphenhydramine HCl (Benadryl) 25 mg PRN QHS PRN PO INSOMNIA Last administered on 07/26/17 23:21; Start 07/26/17 at 23:15 Metronidazole 100 ml @ 100 mls/hr Q8HRS IV Last administered on 07/29/17 05: 48; Start 07/27/17 at 10:00; Stop 07/29/17 at 10:21; Status DC Levetiracetam 500 mg/Sodium Chloride 105 ml @ 420 mls/hr Q12HR IV Last administered on 07/29/17 08:46; Start 07/27/17 at 11:00 Enoxaparin Sodium (Lovenox 40mg Syringe) 40 mg Q24H SQ ; Start 07/27/17 at 11: 00; Stop 07/27/17 at 11:00; Status DC Acetaminophen (Acetaminophen Supp) 650 mg PRN Q6HRS PRN [place] MILD PAIN / TEMP; Start 07/27/17 at 10:30 Albuterol/ Ipratropium (Duoneb) 3 ml RTQID NEB Last administered on 07/29/17 11:49; Start 07/27/17 at 10:30 Potassium Chloride/Dextrose/ Sod Cl 1,000 ml @ 75 mls/hr [id number] IV Last administered on 07/29/17 05:48; Start 07/27/17 at 10:30 Ondansetron HCl (Zofran) 4 mg PRN Q6HRS PRN IV NAUSEA/VOMITING; Start at 10:30 Morphine Sulfate 2 mg Q4HRS PRN IV PAIN; Start 07/27/17 at 10:30 Morphine Sulfate 4 mg Q4HRS PRN IV PAIN; Start 07/27/17 at 10:30 Fentanyl Citrate (Fentanyl 2ml Vial) 25 mcg PRN Q5MIN PRN IV MILD PAIN; Start 07/28/17 at 07:00; Stop 07/29/17 at 06:59; Status DC Fentanyl Citrate (Fentanyl 2ml Vial) 50 mcg PRN Q5MIN PRN IV MODERATE PAIN Last administered on 07/28/17 10:32; Start 07/28/17 at 07:00; Stop 07/29/17 at 06:59; Status DC Morphine Sulfate 1 mg PRN Q10MIN PRN IV SEVERE PAIN; Start 07/28/17 at 07:00; Stop 07/29/17 at 06:59; Status DC Ringer's Solution 1,000 ml @ 30 mls/hr Q24H IV Last administered on 07:00; Start 07/28/17 at 07:00; Stop 07/28/17 at 18:59; Status DC Lidocaine HCl (Xylocaine-Mpf 1% Vial) 2 ml PRN 1X PRN ID IV START; Start 07/28 at 07:00; Stop 07/29/17 at 06:59; Status DC Hydromorphone HCl (Dilaudid) 0.5 mg PRN Q10MIN PRN IV SEV PAIN, Second choice; Start 07/28/17 at 07:00; Stop 07/29/17 at 06:59; Status DC Prochlorperazine Edisylate (Compazine) 5 mg PACU PRN PRN IV NAUSEA, MRX1 Last administered on 07/28/17 10:08; Start 07/28/17 at 07:00; Stop 07/29/17 at 06 :59; Status DC Metoprolol Tartrate (Lopressor) 12.5 mg BID PO Last administered on 07/29/17 08:40; Start 07/27/17 at 13:30 Aspirin (Ecotrin) 81 mg [id number] PO Last administered on 07/29/17 08:39; Start 07/27/17 at 13:30 Fentanyl Citrate (Fentanyl 2ml Vial) 50 mcg Q4HRS PRN IV PAIN Last administered on 07/27/17 18:54; Start 07/27/17 at 14:45 Fentanyl Citrate (Fentanyl 2ml Vial) 25 mcg PRN Q4HRS PRN IV PAIN; Start 07/27 at 14:45 Lactobacillus Rhamnosus (Culturelle) 1 cap BID PO Last administered on 08:39; Start 07/27/17 at 21:00 Sincalide 1.89 mcg/Sodium Chloride 30 ml @ 120 mls/hr 1X ONCE IV Last administered on 07/27/17 17:30; Start 07/27/17 at 17:30; Stop 07/27/17 at 17 :44; Status DC Iohexol (Omnipaque 300 Mg/ml) 50 ml STK-MED ONCE .ROUTE Last administered on 08:57; Start 07/28/17 at 07:05; Stop 07/28/17 at 07:06; Status DC Bupivacaine HCl/ Epinephrine Bitart (Sensorcain-Mpf Epi 0.5%-1:271031) 30 ml STK -MED ONCE .ROUTE Last administered on 07/28/17 08:41; Start 07/28/17 at 07: 05; Stop 07/28/17 at 07:06; Status DC Cellulose 1 each STK-MED ONCE .ROUTE ; Start 07/28/17 at 07:05; Stop 07/28/17 at 07:06; Status DC Dexamethasone Sodium Phosphate (Decadron) 20 mg STK-MED ONCE .ROUTE ; Start at 07:14; Stop 07/28/17 at 07:15; Status DC Ondansetron HCl (Zofran) 4 mg STK-MED ONCE .ROUTE ; Start 07/28/17 at 07:14; Stop 07/28/17 at 07:15; Status DC Propofol 20 ml @ As Directed STK-MED ONCE IV ; Start 07/28/17 at 07:14; Stop 07/28/17 at 07:15; Status DC Lidocaine HCl (Lidocaine Pf 2% Vial) 5 ml STK-MED ONCE .ROUTE ; Start 07/28/17 at 07:14; Stop 07/28/17 at 07:15; Status DC Fentanyl Citrate (Fentanyl 2ml Vial) 100 mcg STK-MED ONCE .ROUTE ; Start at 07:14; Stop 07/28/17 at 07:15; Status DC Rocuronium [place] (Zemuron) 50 mg STK-MED ONCE .ROUTE ; Start 07/28/17 at 07: 14; Stop 07/28/17 at 07:15; Status DC Phenylephrine HCl 1 mg STK-MED ONCE IV ; Start 07/28/17 at 08:48; Stop at 08:49; Status DC Neostigmine Methylsulfate (Bloxiverz) 10 mg STK-MED ONCE .ROUTE ; Start at 08:48; Stop 07/28/17 at 08:49; Status DC Glycopyrrolate (Robinul) 1 mg STK-MED ONCE .ROUTE ; Start 07/28/17 at 08:48; Stop 07/28/17 at 08:49; Status DC Magnesium Sulfate/ Dextrose 50 ml @ 25 mls/hr 1X ONCE IV Last administered on 07/28/17t 11:19; Start 07/28/17 at 09:30; Stop 07/28/17 at 11:29; Status DC Metoprolol Tartrate (Lopressor Vial) 5 mg STK-MED ONCE .ROUTE ; Start 07/28/17 at 08:50; Stop 07/28/17 at 08:51; Status DC Sevoflurane (Ultane) 60 ml STK-MED ONCE IH ; Start 07/28/17 at 09:00; Stop at 09:01; Status DC Oxycodone/ Acetaminophen (Percocet 5/325) 1 tab PRN Q4HRS PRN PO PAIN; Start 07/28/17 at 09:30 Oxycodone/ Acetaminophen (Percocet 5/325) 2 tab PRN Q4HRS PRN PO PAIN Last administered on 07/29/17t 05:57; Start 07/28/17 at 09:45 Fentanyl Citrate (Fentanyl 2ml Vial) 100 mcg STK-MED ONCE .ROUTE ; Start at 09:50; Stop 07/28/17 at 09:51; Status DC Prochlorperazine Edisylate (Compazine) 10 mg STK-MED ONCE .ROUTE ; Start at 10:05; Stop 07/28/17 at 10:06; Status DC Pantoprazole Sodium (Protonix) 40 mg DAILYAC PO Last administered on t 08:40; Start 07/29/17 at 07:30 Amoxicillin/ Clavulanate Potassium (Augmentin 875/ 125mg) 1 tab BID PO ; Start 07/29/17 at 21:00 Active Scripts Active Reported Gabapentin 600 Mg Tablet 600 Mg PO BID Divalproex Sodium 500 Mg Tablet.dr 500 Mg PO BID Keppra (Levetiracetam) 500 Mg Tablet 500 Mg PO BID Citalopram Hbr (Citalopram Hydrobromide) 20 Mg Tablet 1 Tab PO DAILY Omeprazole 40 Mg Capsule.dr 1 Cap PO DAILY Losartan Potassium 100 Mg Tablet 100 Mg PO DAILY Carvedilol 6.25 Mg Tablet 1 Tab PO BID Aspirin 81 Mg Tab.chew 1 Tab PO DAILY Vitamin D (Cholecalciferol (Vitamin D3)) 2,000 Unit Capsule 1 Cap PO DAILY Vitals/I & O Vital Sign - Last 24 Hours 07/28/17 07/28/17 07/28/17 07/28/17 14:11 15:00 15:12 15:26 Temp 98.6 98.6 Pulse 78 86 83 Resp 18 B/P (MAP) 117/65 (82) 109/43 (65) 122/60 (80) Pulse Ox 96 O2 Delivery Room Air Room Air Nasal Cannula O2 Flow Rate 2.0 07/28/17 07/28/17 07/28/17 07/28/17 16:10 19:40 19:49 19:56 Temp 99.1 99.1 Pulse 77 83 Resp 18 B/P (MAP) 122/57 (78) 137/81 (99) Pulse Ox 96 94 O2 Delivery Room Air Nasal Cannula Nasal Cannula Nasal Cannula O2 Flow Rate 2.0 2.0 07/28/17 07/28/17 07/29/17 07/29/17 20:54 23:15 03:34 05:57 Temp 98.3 98.5 98.3 98.5 Pulse 83 71 66 Resp 18 18 20 B/P (MAP) 137/81 128/80 (96) 139/80 (99) Pulse Ox 97 97 96 O2 Delivery Nasal Cannula Room Air Room Air O2 Flow Rate 2.0 07/29/17 07/29/17 07/29/17 07/29/17 07:00 07:31 08:07 08:40 Temp 97.9 97.9 Pulse 71 71 Resp 18 B/P (MAP) 138/86 (103) 138/86 Pulse Ox 94 93 94 O2 Delivery Nasal Cannula Room Air Room Air O2 Flow Rate 2.0 07/29/17 07/29/17 07/29/17 09:00 10:45 11:49 Temp 98.7 98.7 Pulse 87 Resp 19 B/P (MAP) 119/80 (93) Pulse Ox 96 94 O2 Delivery Room Air Room Air Room Air Intake and Output 07/28/17 07/28/17 07/29/17 14:59 22:59 06:59 Intake Total 1820 ml 0 ml 350 ml Output Total 60 ml 430 ml 20 ml Balance 1760 ml -430 ml 330 ml ZOEY THOMAS MD Jul 29, 2017 12:38
[2017-07-29] MEDS: levETIRAcetam 500 MG TABLET PO SCH ×2 (13:10→21:28)
[2017-07-29] MEDS: CITALOPRAM 20 MG TABLET. PO SCH (13:10)
[2017-07-29] MEDS: CHOLECALCIFEROL (VITAMIN D3) 1,000 UNIT TABLET PO SCH (13:10)
[2017-07-29] MEDS: GABAPENTIN 300 MG CAPSULE. PO SCH ×2 (13:10→21:28)
[2017-07-29 14:54] VITALS: BP 136/40
--- NOTE | 2017-07-29 14:54 | PDOC ---
Subjective: Subjective: Feels better, less abd pain, stooling and eating. Objective: Objective: RN paged me earlier, Dr. Velasco wanted to make sure GI saw him today. Vital Signs: Vital Signs Date Time Temp Pulse Resp B/P (MAP) Pulse Ox O2 Delivery O2 Flow Rate FiO2 07/29/17 11:49 94 Room Air 07/29/17 10:45 98.7 87 19 119/80 (93) 98.7 07/29/17 07:00 2.0 PE: GEN: NAD, eating regular lunch LUNGS: CTAB HEART: RRR ABD: less tender NEURO/PSYCH: A & O 3 A/P: S/p lap gregoria for severe cholecystitis, ?abnormal IOC (?sludge) w/ normal LFTs Leukocytosis - improving -- Improving post-op. TONG DAMON Jul 29, 2017 14:54
--- NOTE | 2017-07-29 15:54 | PATHOLOGY ---
PATHOLOGY REPORT * * * * * * * * FINAL DIAGNOSIS: Gallbladder, laparoscopic cholecystectomy: - Acute necrotizing and chronic cholecystitis. COMMENT: There are no calculi identified within the gallbladder lumen or specimen container. There is no evidence of malignancy. (JPM:[email or web address]; 07/29/2017) REPORT ELECTRONICALLY SIGNED BY: Jose Alberto Flores M.D. DATE/TIME: 07/29/2017 15:53 * * * * * * * * GROSS PATHOLOGY: Received in formalin labeled "Clay Maher, gallbladder and contents," is a 10.5 x 5.9 x 3.5 cm, previously punctured gallbladder with dark cosby to pink, wrinkled serosal surfaces. Opening the gallbladder reveals light green and spotty, velvety mucosa and an average wall thickness of 0.4 cm. Calculi are not present and no masses are noted grossly. Trip Follower sections from the body and fundus are submitted along with the proximal margin in cassette A1. (TSD; 07/28/2017) INITIAL CPT CODE(S): A; 88971 Professional services performed [place] [facility] [address] Technical services performed by [facility] at [address] [place] [address] [address], [place] [address]. SPECIMEN(S) RECEIVED: A.Gallbladder and contents CLINICAL HISTORY: Abdominal pain, cholecystitis PATIENT: CLAY MAHER /AGE: 2 1950 (Age: 66) PATIENT #: [id number] ALT CASE #: SPECIMEN COLLECTION DATE: 07/28/2017 SPECIMEN RECEIVED DATE: 07/28/2017 [facility] - [address] [place] [address] - PHONE: [phone] * * * END OF REPORT * * *
[2017-07-29 19:52] VITALS: BP 128/84
[2017-07-29] MEDS: AMOXICILLIN/K CLAV 875/125MG TABLET. PO SCH (21:28)
[2017-07-29 23:00] VITALS: BP 126/84
[2017-07-30 03:36] VITALS: BP 132/85
[2017-07-30 06:04] LABS: BASO % 0 % (0-3); EOS % 0 % (0-3); HEMATOCRIT 36.5 % (39.0-53.0); HEMOGLOBIN 12.5 g/dL (13.0-17.5); LYMPH # 1.1 x10^3/uL (1.0-4.8); LYMPH % 14 % (24-48); MEAN CORPUSCULAR HEMOGLOBIN 33 pg (25-35); MEAN CORPUSCULAR HGB CONC 34 g/dL (31-37); MEAN CORPUSCULAR VOLUME 95 fL (79-100); MONO % 12 % (0-9); NEUT % 74 % (31-73); PLATELET COUNT 206 x10^3/uL (140-400); RED BLOOD COUNT 3.85 x10^6/uL (4.30-5.70); RED CELL DISTRIBUTION WIDTH 14.5 % (11.5-14.5); WHITE BLOOD COUNT 8.5 x10^3/uL (4.0-11.0)
[2017-07-30 06:38] LABS: CREATININE 1.1 mg/dL (0.7-1.3); POTASSIUM 3.3 mmol/L (3.5-5.1)
[2017-07-30 07:26] VITALS: BP 139/90
[2017-07-30] MEDS: IPRATRPIUM/ALBUTEROL 0.5/2.5MG 3 ML NEBU. NEB SCH ×2 (07:47→11:20)
[2017-07-30] MEDS ORDERED: ASPIRIN 325 MG TABLET PO SCH (08:00)
[2017-07-30] MEDS: CHOLECALCIFEROL (VITAMIN D3) 1,000 UNIT TABLET PO SCH (08:11)
[2017-07-30] MEDS: GABAPENTIN 300 MG CAPSULE. PO SCH (08:11)
[2017-07-30] MEDS: ASPIRIN ENTERIC COATED 81 MG TABLET.DR. PO SCH (08:11)
[2017-07-30] MEDS: METOPROLOL TART IMMED RELEASE 25 MG TABLET. PO SCH (08:12)
[2017-07-30] MEDS: levETIRAcetam 500 MG TABLET PO SCH (08:12)
[2017-07-30] MEDS: AMOXICILLIN/K CLAV 875/125MG TABLET. PO SCH (08:13)
[2017-07-30] MEDS: CITALOPRAM 20 MG TABLET. PO SCH (08:13)
[2017-07-30] MEDS: PANTOPRAZOLE 40 MG TABLET.DR. PO SCH (08:13)
[2017-07-30] MEDS: LACTOBACILLUS RHAMNOSUS GG 1 CAPSULE. PO SCH (08:13)
--- NOTE | 2017-07-30 08:26 | PDOC ---
PROGRESS NOTES Subjective Subjective denies pain. feels well. eating well. lab reviewed. magnesium low 1.6 the other day and potassium low 3.3. afebrile. path report shows acute necrotizing cholecystitis. dr. ortega recommends observation and did not see clear evidence of a stone in bile duct on IOC. will resume his losartan. Objective Objective Vital Signs Date Time Temp Pulse Resp B/P (MAP) Pulse Ox O2 Delivery O2 Flow Rate FiO2 07/30/17 08:12 66 139/90 07/30/17 07:47 96 Room Air 07/30/17 07:26 97.5 20 2.0 97.5 Intake and Output 07/30/17 07:00 Intake Total 640 ml Output Total 330 ml Balance 310 ml Intake Oral 640 ml Output Urine Total 300 ml Drainage Total 30 ml Physical Exam Abdomen: Soft, Other (HARMONY drain) Heart: Regular rate, Normal S1, Normal S2 Extremities: No edema General: Alert HEENT: Atraumatic Lungs: Clear to auscultation Neuro: Normal speech Psych/Mental Status: Mental status NL Skin: No rashes Assessment Assessment Problems1. lap cholecystectomy for acute necrotizing cholecystitis. abnormal intra-operative cholangiogram but no further work up per GI who is not convinced there is a stone in bile duct. LFT normal. 2. Leukocytosis.resolved 3. Coronary artery disease. 4. Hypertension. 5. Seizure disorder. paroxysmal atrial fibrillation. in NSR copd Medical Problems: (1) Abdominal pain Status: Acute (2) Cholecystitis Status: Acute (3) Gastritis Status: Acute (4) Leukocytosis Status: Acute Plan Plan of Care start losartan dismiss today Comment Review of Relevant I have reviewed the following items everett (where applicable) has been applied. Labs Laboratory Tests Test 07/29/17 05:30 07/30/17 05:20 White Blood Count 12.3 x10^3/uL (4.0-11.0) 8.5 x10^3/uL (4.0-11.0) Red Blood Count 4.18 x10^6/uL (4.30-5.70) 3.85 x10^6/uL (4.30-5.70) Hemoglobin 13.1 g/dL (13.0-17.5) 12.5 g/dL (13.0-17.5) Hematocrit 40.5 % (39.0-53.0) 36.5 % (39.0-53.0) Mean Corpuscular Volume 97 fL (79-100) 95 fL (79-100) Mean Corpuscular Hemoglobin 31 pg (25-35) 33 pg (25-35) Mean Corpuscular Hemoglobin Concent 32 g/dL (31-37) 34 g/dL (31-37) Red Cell Distribution Width 14.3 % (11.5-14.5) 14.5 % (11.5-14.5) Platelet Count 215 x10^3/uL (140-400) 206 x10^3/uL (140-400) Neutrophils (%) (Auto) 88 % (31-73) 74 % (31-73) Lymphocytes (%) (Auto) 5 % (24-48) 14 % (24-48) Monocytes (%) (Auto) 7 % (0-9) 12 % (0-9) Eosinophils (%) (Auto) 0 % (0-3) 0 % (0-3) Basophils (%) (Auto) 0 % (0-3) 0 % (0-3) Neutrophils # (Auto) 10.8 x10^3uL (1.8-7.7) 6.3 x10^3uL (1.8-7.7) Lymphocytes # (Auto) 0.7 x10^3/uL (1.0-4.8) 1.1 x10^3/uL (1.0-4.8) Monocytes # (Auto) 0.8 x10^3/uL (0.0-1.1) 1.0 x10^3/uL (0.0-1.1) Eosinophils # (Auto) 0.0 x10^3/uL (0.0-0.7) 0.0 x10^3/uL (0.0-0.7) Basophils # (Auto) 0.0 x10^3/uL (0.0-0.2) 0.0 x10^3/uL (0.0-0.2) Sodium Level 138 mmol/L (136-145) 140 mmol/L (136-145) Potassium Level 4.8 mmol/L (3.5-5.1) 3.3 mmol/L (3.5-5.1) Chloride Level 103 mmol/L (98-107) 106 mmol/L (98-107) Carbon Dioxide Level 26 mmol/L (21-32) 25 mmol/L (21-32) Anion Gap 9 (6-14) 9 (6-14) Blood Urea Nitrogen 30 mg/dL (8-26) 28 mg/dL (8-26) Creatinine 1.3 mg/dL (0.7-1.3) 1.1 mg/dL (0.7-1.3) Estimated GFR (Cockcroft-Gault) 55.2 67.0 Glucose Level 126 mg/dL (70-99) 112 mg/dL (70-99) Calcium Level 9.2 mg/dL (8.5-10.1) 9.0 mg/dL (8.5-10.1) Total Bilirubin 0.5 mg/dL (0.2-1.0) Direct Bilirubin 0.2 mg/dL (0.0-0.2) Aspartate Amino Transf (AST/SGOT) 21 U/L (15-37) Alanine Aminotransferase (ALT/SGPT) 16 U/L (16-63) Alkaline Phosphatase 81 U/L (46-116) Total Protein 7.0 g/dL (6.4-8.2) Albumin 2.6 g/dL (3.4-5.0) Laboratory Tests Test 07/30/17 05:20 White Blood Count 8.5 x10^3/uL (4.0-11.0) Red Blood Count 3.85 x10^6/uL (4.30-5.70) Hemoglobin 12.5 g/dL (13.0-17.5) Hematocrit 36.5 % (39.0-53.0) Mean Corpuscular Volume 95 fL (79-100) Mean Corpuscular Hemoglobin 33 pg (25-35) Mean Corpuscular Hemoglobin Concent 34 g/dL (31-37) Red Cell Distribution Width 14.5 % (11.5-14.5) Platelet Count 206 x10^3/uL (140-400) Neutrophils (%) (Auto) 74 % (31-73) Lymphocytes (%) (Auto) 14 % (24-48) Monocytes (%) (Auto) 12 % (0-9) Eosinophils (%) (Auto) 0 % (0-3) Basophils (%) (Auto) 0 % (0-3) Neutrophils # (Auto) 6.3 x10^3uL (1.8-7.7) Lymphocytes # (Auto) 1.1 x10^3/uL (1.0-4.8) Monocytes # (Auto) 1.0 x10^3/uL (0.0-1.1) Eosinophils # (Auto) 0.0 x10^3/uL (0.0-0.7) Basophils # (Auto) 0.0 x10^3/uL (0.0-0.2) Sodium Level 140 mmol/L (136-145) Potassium Level 3.3 mmol/L (3.5-5.1) Chloride Level 106 mmol/L (98-107) Carbon Dioxide Level 25 mmol/L (21-32) Anion Gap 9 (6-14) Blood Urea Nitrogen 28 mg/dL (8-26) Creatinine 1.1 mg/dL (0.7-1.3) Estimated GFR (Cockcroft-Gault) 67.0 Glucose Level 112 mg/dL (70-99) Calcium Level 9.0 mg/dL (8.5-10.1) Microbiology 07/26/17 Blood Culture - Preliminary, Resulted NO GROWTH AFTER 3 DAYS Medications Current Medications Sodium Chloride 1,000 ml @ 1,000 mls/hr 1X ONCE IV Last administered on 07/26 16:42; Start 07/26/17 at 15:30; Stop 07/26/17 at 16:29; Status DC Hydromorphone HCl (Dilaudid) 1 mg 1X ONCE IV Last administered on 07/26/17 16:43; Start 07/26/17 at 15:30; Stop 07/26/17 at 15:32; Status DC Ondansetron HCl (Zofran) 4 mg 1X ONCE IV Last administered on 07/26/17 16:43 ; Start 07/26/17 at 15:30; Stop 07/26/17 at 15:32; Status DC Pantoprazole Sodium (Protonix Vial) 40 mg 1X ONCE IVP Last administered on 16:42; Start 07/26/17 at 15:30; Stop 07/26/17 at 15:32; Status DC Iohexol (Omnipaque 300 Mg/ml) 75 ml 1X ONCE IV Last administered on 16:23; Start 07/26/17 at 16:00; Stop 07/26/17 at 16:01; Status DC Info (Do NOT chart on this entry -- for MONITORING) 1 each PRN DAILY PRN MC SEE COMMENTS; Start 07/26/17 at 16:00; Stop 07/28/17 at 15:59; Status DC Piperacillin Sod/ Tazobactam Sod 3.375 gm/Dextrose 50 ml @ 100 mls/hr 1X ONCE IV ; Start 07/26/17 at 17:15; Stop 07/26/17 at 17:44; Status UNV Piperacillin Sod/ Tazobactam Sod (Zosyn) 3.375 gm 1X ONCE IVP Last administered on 07/26/17 17:28; Start 07/26/17 at 17:15; Stop 07/26/17 at 17 :16; Status DC Ondansetron HCl (Zofran) 4 mg PRN Q8HRS PRN IV NAUSEA/VOMITING Last administered on 07/27/17 08:36; Start 07/26/17 at 18:00; Stop 07/27/17 at 17 :59; Status DC Morphine Sulfate 4 mg PRN Q2HR PRN IV PAIN Last administered on 07/27/17 10: 38; Start 07/26/17 at 18:00; Stop 07/27/17 at 17:59; Status DC Piperacillin Sod/ Tazobactam Sod 3.375 gm/Dextrose 50 ml @ 100 mls/hr Q6HRS IV ; Start 07/26/17 at 18:00; Status UNV Potassium Chloride/Dextrose/ Sod Cl 1,000 ml @ 120 mls/hr 1X ONCE IV Last administered on 07/26/17 18:52; Start 07/26/17 at 18:30; Stop 07/27/17 at 02 :49; Status DC Famotidine (Pepcid Vial) 20 mg Q12HR IVP Last administered on 07/29/17 08:41 ; Start 07/26/17 at 21:00; Stop 07/29/17 at 12:33; Status DC Piperacillin Sod/ Tazobactam Sod (Zosyn) 3.375 gm Q6HRS IVP Last administered on 07/29/17 05:48; Start 07/27/17 at 00:00; Stop 07/29/17 at 10:21; Status DC Diphenhydramine HCl (Benadryl) 25 mg PRN QHS PRN PO INSOMNIA Last administered on 07/26/17 23:21; Start 07/26/17 at 23:15 Metronidazole 100 ml @ 100 mls/hr Q8HRS IV Last administered on 07/29/17 05: 48; Start 07/27/17 at 10:00; Stop 07/29/17 at 10:21; Status DC Levetiracetam 500 mg/Sodium Chloride 105 ml @ 420 mls/hr Q12HR IV Last administered on 07/29/17 08:46; Start 07/27/17 at 11:00; Stop 07/29/17 at 12 :33; Status DC Enoxaparin Sodium (Lovenox 40mg Syringe) 40 mg Q24H SQ ; Start 07/27/17 at 11: 00; Stop 07/27/17 at 11:00; Status DC Acetaminophen (Acetaminophen Supp) 650 mg PRN Q6HRS PRN OH MILD PAIN / TEMP; Start 07/27/17 at 10:30 Albuterol/ Ipratropium (Duoneb) 3 ml RTQID NEB Last administered on 07/30/17 07:47; Start 07/27/17 at 10:30 Potassium Chloride/Dextrose/ Sod Cl 1,000 ml @ 40 mls/hr Q24H IV Last administered on 07/29/17 05:48; Start 07/27/17 at 10:30; Stop 07/29/17 at 13 :04; Status DC Ondansetron HCl (Zofran) 4 mg PRN Q6HRS PRN IV NAUSEA/VOMITING; Start at 10:30 Morphine Sulfate 2 mg Q4HRS PRN IV PAIN; Start 07/27/17 at 10:30; Stop at 12:33; Status DC Morphine Sulfate 4 mg Q4HRS PRN IV PAIN; Start 07/27/17 at 10:30; Stop at 12:33; Status DC Fentanyl Citrate (Fentanyl 2ml Vial) 25 mcg PRN Q5MIN PRN IV MILD PAIN; Start 07/28/17 at 07:00; Stop 07/29/17 at 06:59; Status DC Fentanyl Citrate (Fentanyl 2ml Vial) 50 mcg PRN Q5MIN PRN IV MODERATE PAIN Last administered on 07/28/17 10:32; Start 07/28/17 at 07:00; Stop 07/29/17 at 06:59; Status DC Morphine Sulfate 1 mg PRN Q10MIN PRN IV SEVERE PAIN; Start 07/28/17 at 07:00; Stop 07/29/17 at 06:59; Status DC Ringer's Solution 1,000 ml @ 30 mls/hr Q24H IV Last administered on 07:00; Start 07/28/17 at 07:00; Stop 07/28/17 at 18:59; Status DC Lidocaine HCl (Xylocaine-Mpf 1% Vial) 2 ml PRN 1X PRN ID IV START; Start 07/28 at 07:00; Stop 07/29/17 at 06:59; Status DC Hydromorphone HCl (Dilaudid) 0.5 mg PRN Q10MIN PRN IV SEV PAIN, Second choice; Start 07/28/17 at 07:00; Stop 07/29/17 at 06:59; Status DC Prochlorperazine Edisylate (Compazine) 5 mg PACU PRN PRN IV NAUSEA, MRX1 Last administered on 07/28/17 10:08; Start 07/28/17 at 07:00; Stop 07/29/17 at 06 :59; Status DC Metoprolol Tartrate (Lopressor) 12.5 mg BID PO Last administered on 07/30/17 08:12; Start 07/27/17 at 13:30 Aspirin (Ecotrin) 81 mg DAILYWBKFT PO Last administered on 07/30/17 08:11; Start 07/27/17 at 13:30 Fentanyl Citrate (Fentanyl 2ml Vial) 50 mcg Q4HRS PRN IV PAIN Last administered on 07/27/17 18:54; Start 07/27/17 at 14:45 Fentanyl Citrate (Fentanyl 2ml Vial) 25 mcg PRN Q4HRS PRN IV PAIN; Start 07/27 at 14:45 Lactobacillus Rhamnosus (Culturelle) 1 cap BID PO Last administered on 08:13; Start 07/27/17 at 21:00 Sincalide 1.89 mcg/Sodium Chloride 30 ml @ 120 mls/hr 1X ONCE IV Last administered on 07/27/17 17:30; Start 07/27/17 at 17:30; Stop 07/27/17 at 17 :44; Status DC Iohexol (Omnipaque 300 Mg/ml) 50 ml STK-MED ONCE .ROUTE Last administered on 08:57; Start 07/28/17 at 07:05; Stop 07/28/17 at 07:06; Status DC Bupivacaine HCl/ Epinephrine Bitart (Sensorcain-Mpf Epi 0.5%-[id number]) 30 ml STK -MED ONCE .ROUTE Last administered on 07/28/17 08:41; Start 07/28/17 at 07: 05; Stop 07/28/17 at 07:06; Status DC Cellulose 1 each STK-MED ONCE .ROUTE ; Start 07/28/17 at 07:05; Stop 07/28/17 at 07:06; Status DC Dexamethasone Sodium Phosphate (Decadron) 20 mg STK-MED ONCE .ROUTE ; Start at 07:14; Stop 07/28/17 at 07:15; Status DC Ondansetron HCl (Zofran) 4 mg STK-MED ONCE .ROUTE ; Start 07/28/17 at 07:14; Stop 07/28/17 at 07:15; Status DC Propofol 20 ml @ As Directed STK-MED ONCE IV ; Start 07/28/17 at 07:14; Stop 07/28/17 at 07:15; Status DC Lidocaine HCl (Lidocaine Pf 2% Vial) 5 ml STK-MED ONCE .ROUTE ; Start 07/28/17 at 07:14; Stop 07/28/17 at 07:15; Status DC Fentanyl Citrate (Fentanyl 2ml Vial) 100 mcg STK-MED ONCE .ROUTE ; Start at 07:14; Stop 07/28/17 at 07:15; Status DC Rocuronium Broadus (Zemuron) 50 mg STK-MED ONCE .ROUTE ; Start 07/28/17 at 07: 14; Stop 07/28/17 at 07:15; Status DC Phenylephrine HCl 1 mg STK-MED ONCE IV ; Start 07/28/17 at 08:48; Stop at 08:49; Status DC Neostigmine Methylsulfate (Bloxiverz) 10 mg STK-MED ONCE .ROUTE ; Start at 08:48; Stop 07/28/17 at 08:49; Status DC Glycopyrrolate (Robinul) 1 mg STK-MED ONCE .ROUTE ; Start 07/28/17 at 08:48; Stop 07/28/17 at 08:49; Status DC Magnesium Sulfate/ Dextrose 50 ml @ 25 mls/hr 1X ONCE IV Last administered on 07/28/17 11:19; Start 07/28/17 at 09:30; Stop 07/28/17 at 11:29; Status DC Metoprolol Tartrate (Lopressor Vial) 5 mg STK-MED ONCE .ROUTE ; Start 07/28/17 at 08:50; Stop 07/28/17 at 08:51; Status DC Sevoflurane (Ultane) 60 ml STK-MED ONCE IH ; Start 07/28/17 at 09:00; Stop at 09:01; Status DC Oxycodone/ Acetaminophen (Percocet 5/325) 1 tab PRN Q4HRS PRN PO PAIN; Start 07/28/17 at 09:30 Oxycodone/ Acetaminophen (Percocet 5/325) 2 tab PRN Q4HRS PRN PO PAIN Last administered on 07/29/17 05:57; Start 07/28/17 at 09:45 Fentanyl Citrate (Fentanyl 2ml Vial) 100 mcg STK-MED ONCE .ROUTE ; Start at 09:50; Stop 07/28/17 at 09:51; Status DC Prochlorperazine Edisylate (Compazine) 10 mg STK-MED ONCE .ROUTE ; Start at 10:05; Stop 07/28/17 at 10:06; Status DC Pantoprazole Sodium (Protonix) 40 mg DAILYAC PO Last administered on 08:13; Start 07/29/17 at 07:30 Amoxicillin/ Clavulanate Potassium (Augmentin 875/ 125mg) 1 tab BID PO Last administered on 07/30/17 08:13; Start 07/29/17 at 21:00 Aspirin (Mino Aspirin) 81 mg DAILYWBKFT PO ; Start 07/30/17 at 08:00; Status UNV Citalopram Hydrobromide (CeleXA) 20 mg DAILY PO Last administered on 08:13; Start 07/29/17 at 13:00 Gabapentin (Neurontin) 600 mg BID PO Last administered on 07/30/17 08:11; Start 07/29/17 at 13:00 Levetiracetam (Keppra) 500 mg BID PO Last administered on 07/30/17 08:12; Start 07/29/17 at 13:00 Vitamin D (Vitamin D3) 2,000 unit DAILY PO Last administered on 07/30/17 08: 11; Start 07/29/17 at 13:00 Losartan Potassium (Cozaar) 100 mg DAILY PO ; Start 07/30/17 at 09:00 Potassium Chloride (Klor-Con) 40 meq 1X ONCE PO ; Start 07/30/17 at 08:30; Stop 07/30/17 at 08:31 Magnesium Sulfate/ Dextrose 50 ml @ 25 mls/hr 1X ONCE IV ; Start 07/30/17 at 08:30; Stop 07/30/17 at 10:29 Active Scripts Active Reported Gabapentin 600 Mg Tablet 600 Mg PO BID Divalproex Sodium 500 Mg Tablet. 500 Mg PO BID Keppra (Levetiracetam) 500 Mg Tablet 500 Mg PO BID Citalopram Hbr (Citalopram Hydrobromide) 20 Mg Tablet 1 Tab PO DAILY Omeprazole 40 Mg Capsule. 1 Cap PO DAILY Losartan Potassium 100 Mg Tablet 100 Mg PO DAILY Carvedilol 6.25 Mg Tablet 1 Tab PO BID Aspirin 81 Mg Tab.chew 1 Tab PO DAILY Vitamin D (Cholecalciferol (Vitamin D3)) 2,000 Unit Capsule 1 Cap PO DAILY Vitals/I & O Vital Sign - Last 24 Hours 07/29/17 07/29/17 07/29/17 07/29/17 08:40 09:00 10:45 11:49 Temp 98.7 98.7 Pulse 71 87 Resp 19 B/P (MAP) 138/86 119/80 (93) Pulse Ox 96 94 O2 Delivery Room Air Room Air Room Air 07/29/17 07/29/17 07/29/17 07/29/17 14:54 16:20 19:24 19:52 Temp 98.6 98.2 98.6 98.2 Pulse 80 108 Resp 18 18 B/P (MAP) 136/40 (72) 128/84 (99) Pulse Ox 98 99 95 O2 Delivery Room Air Room Air Room Air Room Air 07/29/17 07/29/17 07/29/17 07/30/17 20:00 21:29 23:00 03:36 Temp 97.5 98.1 97.5 98.1 Pulse 108 81 72 Resp 18 18 B/P (MAP) 128/84 126/84 (98) 132/85 (101) Pulse Ox 95 95 O2 Delivery Room Air Room Air Nasal Cannula O2 Flow Rate 2.0 07/30/17 07/30/17 07/30/17 07:26 07:47 08:12 Temp 97.5 97.5 Pulse 66 66 Resp 20 B/P (MAP) 139/90 (106) 139/90 Pulse Ox 95 96 O2 Delivery Nasal Cannula Room Air O2 Flow Rate 2.0 Intake and Output 07/29/17 07/29/17 07/30/17 15:00 23:00 07:00 Intake Total 400 ml 240 ml Output Total 330 ml 0 ml Balance 70 ml 240 ml ZOEY THOMAS MD Jul 30, 2017 08:26
[2017-07-30] MEDS ORDERED: POTASSIUM CHLORIDE 20 MEQ TABLET.ER. PO ONE (08:30)
[2017-07-30] MEDS ORDERED: MAGNESIUM SULFATE 2GM 50 ML IV ONE (08:30)
--- NOTE | 2017-07-30 08:32 | DISCH ---
DISCHARGE INSTRUCTIONS Condition on Discharge Condition on Discharge: Stable Activity After Discharge Activity Instructions for Disc: Resume previous activity Diet after Discharge Diet after Discharge: Regular Contacting the DRJoya after DC Call your doctor for: If your condition worsens Follow-Up Follow up with: dr. thomas next week Follow Up With: dr. pettit in 1 week ZOEY THOMAS MD Jul 30, 2017 08:32
[2017-07-30] MEDS ORDERED: AMOX1TAB11 PO (08:36)
[2017-07-30] MEDS ORDERED: METO25TA4 PO (08:36)
--- NOTE | 2017-07-30 08:42 | PDOC ---
Provider Note Provider Note discharge summary dictated # [id number] ZOEY THOMAS MD Jul 30, 2017 08:42
[2017-07-30] MEDS ORDERED: LOSARTAN POTASSIUM 25 MG TABLET. PO SCH (09:00)
[2017-07-30] MEDS ORDERED: MAGNESIUM OXIDE 400 MG TABLET PO STA (09:44)
--- NOTE | 2017-07-30 10:12 | PDOC ---
PULMONARY PROGRESS NOTES Subjective no soa Vitals Vital Signs Date Time Temp Pulse Resp B/P (MAP) Pulse Ox O2 Delivery O2 Flow Rate FiO2 07/30/17 08:18 Room Air 2.0 07/30/17 08:12 66 139/90 07/30/17 07:47 96 07/30/17 07:26 97.5 20 97.5 General: Alert, No acute distress Lungs: Clear Cardiovascular: S1 Abdomen: Soft, Other (mild tender RUQ) Neuro Exam: Alert Extremities: No Edema Skin: Warm Labs Laboratory Tests Test 07/29/17 05:30 07/30/17 05:20 White Blood Count 12.3 x10^3/uL (4.0-11.0) 8.5 x10^3/uL (4.0-11.0) Red Blood Count 4.18 x10^6/uL (4.30-5.70) 3.85 x10^6/uL (4.30-5.70) Hemoglobin 13.1 g/dL (13.0-17.5) 12.5 g/dL (13.0-17.5) Hematocrit 40.5 % (39.0-53.0) 36.5 % (39.0-53.0) Mean Corpuscular Volume 97 fL (79-100) 95 fL (79-100) Mean Corpuscular Hemoglobin 31 pg (25-35) 33 pg (25-35) Mean Corpuscular Hemoglobin Concent 32 g/dL (31-37) 34 g/dL (31-37) Red Cell Distribution Width 14.3 % (11.5-14.5) 14.5 % (11.5-14.5) Platelet Count 215 x10^3/uL (140-400) 206 x10^3/uL (140-400) Neutrophils (%) (Auto) 88 % (31-73) 74 % (31-73) Lymphocytes (%) (Auto) 5 % (24-48) 14 % (24-48) Monocytes (%) (Auto) 7 % (0-9) 12 % (0-9) Eosinophils (%) (Auto) 0 % (0-3) 0 % (0-3) Basophils (%) (Auto) 0 % (0-3) 0 % (0-3) Neutrophils # (Auto) 10.8 x10^3uL (1.8-7.7) 6.3 x10^3uL (1.8-7.7) Lymphocytes # (Auto) 0.7 x10^3/uL (1.0-4.8) 1.1 x10^3/uL (1.0-4.8) Monocytes # (Auto) 0.8 x10^3/uL (0.0-1.1) 1.0 x10^3/uL (0.0-1.1) Eosinophils # (Auto) 0.0 x10^3/uL (0.0-0.7) 0.0 x10^3/uL (0.0-0.7) Basophils # (Auto) 0.0 x10^3/uL (0.0-0.2) 0.0 x10^3/uL (0.0-0.2) Sodium Level 138 mmol/L (136-145) 140 mmol/L (136-145) Potassium Level 4.8 mmol/L (3.5-5.1) 3.3 mmol/L (3.5-5.1) Chloride Level 103 mmol/L (98-107) 106 mmol/L (98-107) Carbon Dioxide Level 26 mmol/L (21-32) 25 mmol/L (21-32) Anion Gap 9 (6-14) 9 (6-14) Blood Urea Nitrogen 30 mg/dL (8-26) 28 mg/dL (8-26) Creatinine 1.3 mg/dL (0.7-1.3) 1.1 mg/dL (0.7-1.3) Estimated GFR (Cockcroft-Gault) 55.2 67.0 Glucose Level 126 mg/dL (70-99) 112 mg/dL (70-99) Calcium Level 9.2 mg/dL (8.5-10.1) 9.0 mg/dL (8.5-10.1) Total Bilirubin 0.5 mg/dL (0.2-1.0) Direct Bilirubin 0.2 mg/dL (0.0-0.2) Aspartate Amino Transf (AST/SGOT) 21 U/L (15-37) Alanine Aminotransferase (ALT/SGPT) 16 U/L (16-63) Alkaline Phosphatase 81 U/L (46-116) Total Protein 7.0 g/dL (6.4-8.2) Albumin 2.6 g/dL (3.4-5.0) Laboratory Tests Test 07/30/17 05:20 White Blood Count 8.5 x10^3/uL (4.0-11.0) Red Blood Count 3.85 x10^6/uL (4.30-5.70) Hemoglobin 12.5 g/dL (13.0-17.5) Hematocrit 36.5 % (39.0-53.0) Mean Corpuscular Volume 95 fL (79-100) Mean Corpuscular Hemoglobin 33 pg (25-35) Mean Corpuscular Hemoglobin Concent 34 g/dL (31-37) Red Cell Distribution Width 14.5 % (11.5-14.5) Platelet Count 206 x10^3/uL (140-400) Neutrophils (%) (Auto) 74 % (31-73) Lymphocytes (%) (Auto) 14 % (24-48) Monocytes (%) (Auto) 12 % (0-9) Eosinophils (%) (Auto) 0 % (0-3) Basophils (%) (Auto) 0 % (0-3) Neutrophils # (Auto) 6.3 x10^3uL (1.8-7.7) Lymphocytes # (Auto) 1.1 x10^3/uL (1.0-4.8) Monocytes # (Auto) 1.0 x10^3/uL (0.0-1.1) Eosinophils # (Auto) 0.0 x10^3/uL (0.0-0.7) Basophils # (Auto) 0.0 x10^3/uL (0.0-0.2) Sodium Level 140 mmol/L (136-145) Potassium Level 3.3 mmol/L (3.5-5.1) Chloride Level 106 mmol/L (98-107) Carbon Dioxide Level 25 mmol/L (21-32) Anion Gap 9 (6-14) Blood Urea Nitrogen 28 mg/dL (8-26) Creatinine 1.1 mg/dL (0.7-1.3) Estimated GFR (Cockcroft-Gault) 67.0 Glucose Level 112 mg/dL (70-99) Calcium Level 9.0 mg/dL (8.5-10.1) Medications Active Scripts Medications Dose Route/Sig Max Daily Dose Days Date Category Keppra (Levetiracetam) 500 Mg Tablet 500 Mg PO BID 07/26/17 Reported Citalopram Hbr (Citalopram Hydrobromide) 20 Mg Tablet 1 Tab PO DAILY 07/26/17 Reported Omeprazole 40 Mg Capsule.dr 1 Cap PO DAILY 07/26/17 Reported Losartan Potassium 100 Mg Tablet 100 Mg PO DAILY 07/26/17 Reported Carvedilol 6.25 Mg Tablet 1 Tab PO BID 07/26/17 Reported Aspirin 81 Mg Tab.chew 1 Tab PO DAILY 07/26/17 Reported Vitamin D (Cholecalciferol (Vitamin D3)) 2,000 Unit Capsule 1 Cap PO DAILY 07/26/17 Reported Impression . 1. Right upper quadrant pain secondary to acute cholecystitis/colitis. s/p Lap Choli 2. Underlying chronic obstructive pulmonary disease, seems to be clinically compensated. Chest x-ray is clear. 3. Suspected obstructive sleep apnea. He says he is scheduled for sleep study in 2 weeks from now. 4. Fever secondary to acute cholecystitis. Plan . 1. Continue with antibiotics. 2. Bronchodilators as scheduled. 3. Full PFTs as an outpatient. 4. Sleep study as an outpatient. 5. Follow surgical recommendation DOING WELL/ OK WITH HOME HENRY MAX MD Jul 30, 2017 10:12
--- NOTE | 2017-07-30 10:54 | PDOC ---
Subjective: Subjective: Feels good, wants to go home. Objective: Vital Signs: Vital Signs Date Time Temp Pulse Resp B/P (MAP) Pulse Ox O2 Delivery O2 Flow Rate FiO2 07/30/17 10:13 66 139/90 07/30/17 08:18 Room Air 2.0 07/30/17 07:47 96 07/30/17 07:26 97.5 20 97.5 Labs: Laboratory Tests Test 07/30/17 05:20 White Blood Count 8.5 x10^3/uL Red Blood Count 3.85 x10^6/uL Hemoglobin 12.5 g/dL Hematocrit 36.5 % Mean Corpuscular Volume 95 fL Mean Corpuscular Hemoglobin 33 pg Mean Corpuscular Hemoglobin Concent 34 g/dL Red Cell Distribution Width 14.5 % Platelet Count 206 x10^3/uL Neutrophils (%) (Auto) 74 % Lymphocytes (%) (Auto) 14 % Monocytes (%) (Auto) 12 % Eosinophils (%) (Auto) 0 % Basophils (%) (Auto) 0 % Neutrophils # (Auto) 6.3 x10^3uL Lymphocytes # (Auto) 1.1 x10^3/uL Monocytes # (Auto) 1.0 x10^3/uL Eosinophils # (Auto) 0.0 x10^3/uL Basophils # (Auto) 0.0 x10^3/uL Sodium Level 140 mmol/L Potassium Level 3.3 mmol/L Chloride Level 106 mmol/L Carbon Dioxide Level 25 mmol/L Anion Gap 9 Blood Urea Nitrogen 28 mg/dL Creatinine 1.1 mg/dL Estimated GFR (Cockcroft-Gault) 67.0 Glucose Level 112 mg/dL Calcium Level 9.0 mg/dL PE: GEN: NAD LUNGS: clear HEART: RRR ABD: soft, mildly tender around RUQ drain NEURO/PSYCH: A & O 3 A/P: S/p lap gregoria, ?abnormal IOC (?sludge) w/ normal LFTs -- DC per primary/surg. TONG DAMON Jul 30, 2017 10:54
[2017-07-30 11:03] VITALS: BP 147/93
--- NOTE | 2017-07-30 11:19 | DS ---
DATE OF DISCHARGE: 07/30/2017 PROCEDURE: Laparoscopic cholecystectomy with intraoperative cholangiogram. CONSULTANTS: Dr. Archer, Dr. Patel and Dr. Garcia and also the shipyard supervisor, Dr. Morales. FINAL DIAGNOSES: 1. Acute necrotizing cholecystitis with sepsis. 2. Sepsis. 3. Leukocytosis. 4. Coronary artery disease. 5. Hypertension. 6. Paroxysmal atrial fibrillation, currently in sinus rhythm. 7. Seizure disorder. 8. Chronic obstructive pulmonary disease. HOSPITAL COURSE: The patient is a 66-year-old white male with a history of coronary artery disease, seizure disorder, hypertension. He was seen in the office on 07/26/2017 with a 2-day history of nausea, vomiting, right-sided abdominal pain and decreased appetite. Denied any fever, hematemesis. He took Advil PM the night before admission. He had significant right-sided abdominal tenderness on examination, was sent to the [facility] Emergency Room, where he was noted to have leukocytosis with a white count of 25.2, consistent with sepsis. CAT scan of the abdomen and pelvis showed evidence of acute cholecystitis. He did have a fever. He was started on IV Zosyn and IV Flagyl, seen in consultation by Dr. Garcia for Infectious Disease. Blood cultures were done and turned out to be negative. The patient was seen in consultation by Dr. Patel for GI and also Dr. Archer for General Surgery. He did develop an episode of atrial fibrillation with rapid ventricular response and was started on metoprolol. Echocardiogram was unremarkable. He converted and stayed in normal sinus rhythm. The patient eventually underwent a laparoscopic cholecystectomy, and pathology was consistent with acute necrotizing cholecystitis on top of chronic cholecystitis. Postoperatively, the patient did well. His diet was advanced. He ate well. His pain was under control without any narcotics yesterday. His antibiotics were switched to Augmentin. He still has a HARMONY drain in place. His white count today for the first time is normal. He was treated with IV and then oral Keppra. His losartan was resumed. His carvedilol was discontinued and was started on metoprolol for his atrial fibrillation. Again, he converted to normal sinus rhythm. His intraoperative cholangiogram showed a density in the bile duct, just concerning for bile duct stone; however, Dr. Patel noted that the liver function tests were normal, he was afebrile and felt that there was no definite evidence of a bile duct stone and just recommended observation with no further workup. The patient will be dismissed to home and will see Dr. Archer in the office in 1 week and was told to see Dr. Velasco in the office next week. He will be dismissed on aspirin 81 mg every day, metoprolol tartrate 12.5 mg b.i.d., Celexa 20 mg every day, gabapentin 600 mg b.i.d., Keppra 500 mg b.i.d., losartan 100 mg every day, omeprazole 40 mg every day, vitamin D 2000 units every day, Augmentin 875 mg b.i.d. for 7 days. There is confusion on whether or not he is on Depakote 500 mg b.i.d. that was on his preadmission meds. I will confirm that with him. He will be dismissed on a regular diet. He will take Tylenol p.r.n. for pain. He will be dismissed with his HARMONY drain, which will probably be removed in the office next week when he sees Dr. Archer. ZOEY VELASCO MD DR: FRANCES/bogdan JOB#: [id number] / [id number]
--- NOTE | 2017-07-30 12:40 | PDOC ---
RYLIE FINN TUTORING CLINICIAN 07/30/17 1240: SURGICAL PROGRESS NOTE Subjective tolerating diet feels well no complaints ready to go home Vital Signs Vital Signs Date Time Temp Pulse Resp B/P (MAP) Pulse Ox O2 Delivery O2 Flow Rate FiO2 07/30/17 11:21 Room Air 07/30/17 11:03 98.7 87 22 147/93 (111) 93 2.0 98.7 I&O Intake and Output 07/30/17 07:00 Intake Total 640 ml Output Total 330 ml Balance 310 ml Intake Oral 640 ml Output Urine Total 300 ml Drainage Total 30 ml General: Alert, Oriented X3, Cooperative, No acute distress Abdomen: Soft Extremities: Other (ND, NTTP, esther serosang) Labs Laboratory Tests Test 07/29/17 05:30 07/30/17 05:20 White Blood Count 12.3 x10^3/uL (4.0-11.0) 8.5 x10^3/uL (4.0-11.0) Red Blood Count 4.18 x10^6/uL (4.30-5.70) 3.85 x10^6/uL (4.30-5.70) Hemoglobin 13.1 g/dL (13.0-17.5) 12.5 g/dL (13.0-17.5) Hematocrit 40.5 % (39.0-53.0) 36.5 % (39.0-53.0) Mean Corpuscular Volume 97 fL (79-100) 95 fL (79-100) Mean Corpuscular Hemoglobin 31 pg (25-35) 33 pg (25-35) Mean Corpuscular Hemoglobin Concent 32 g/dL (31-37) 34 g/dL (31-37) Red Cell Distribution Width 14.3 % (11.5-14.5) 14.5 % (11.5-14.5) Platelet Count 215 x10^3/uL (140-400) 206 x10^3/uL (140-400) Neutrophils (%) (Auto) 88 % (31-73) 74 % (31-73) Lymphocytes (%) (Auto) 5 % (24-48) 14 % (24-48) Monocytes (%) (Auto) 7 % (0-9) 12 % (0-9) Eosinophils (%) (Auto) 0 % (0-3) 0 % (0-3) Basophils (%) (Auto) 0 % (0-3) 0 % (0-3) Neutrophils # (Auto) 10.8 x10^3uL (1.8-7.7) 6.3 x10^3uL (1.8-7.7) Lymphocytes # (Auto) 0.7 x10^3/uL (1.0-4.8) 1.1 x10^3/uL (1.0-4.8) Monocytes # (Auto) 0.8 x10^3/uL (0.0-1.1) 1.0 x10^3/uL (0.0-1.1) Eosinophils # (Auto) 0.0 x10^3/uL (0.0-0.7) 0.0 x10^3/uL (0.0-0.7) Basophils # (Auto) 0.0 x10^3/uL (0.0-0.2) 0.0 x10^3/uL (0.0-0.2) Sodium Level 138 mmol/L (136-145) 140 mmol/L (136-145) Potassium Level 4.8 mmol/L (3.5-5.1) 3.3 mmol/L (3.5-5.1) Chloride Level 103 mmol/L (98-107) 106 mmol/L (98-107) Carbon Dioxide Level 26 mmol/L (21-32) 25 mmol/L (21-32) Anion Gap 9 (6-14) 9 (6-14) Blood Urea Nitrogen 30 mg/dL (8-26) 28 mg/dL (8-26) Creatinine 1.3 mg/dL (0.7-1.3) 1.1 mg/dL (0.7-1.3) Estimated GFR (Cockcroft-Gault) 55.2 67.0 Glucose Level 126 mg/dL (70-99) 112 mg/dL (70-99) Calcium Level 9.2 mg/dL (8.5-10.1) 9.0 mg/dL (8.5-10.1) Total Bilirubin 0.5 mg/dL (0.2-1.0) Direct Bilirubin 0.2 mg/dL (0.0-0.2) Aspartate Amino Transf (AST/SGOT) 21 U/L (15-37) Alanine Aminotransferase (ALT/SGPT) 16 U/L (16-63) Alkaline Phosphatase 81 U/L (46-116) Total Protein 7.0 g/dL (6.4-8.2) Albumin 2.6 g/dL (3.4-5.0) Laboratory Tests Test 07/30/17 05:20 White Blood Count 8.5 x10^3/uL (4.0-11.0) Red Blood Count 3.85 x10^6/uL (4.30-5.70) Hemoglobin 12.5 g/dL (13.0-17.5) Hematocrit 36.5 % (39.0-53.0) Mean Corpuscular Volume 95 fL (79-100) Mean Corpuscular Hemoglobin 33 pg (25-35) Mean Corpuscular Hemoglobin Concent 34 g/dL (31-37) Red Cell Distribution Width 14.5 % (11.5-14.5) Platelet Count 206 x10^3/uL (140-400) Neutrophils (%) (Auto) 74 % (31-73) Lymphocytes (%) (Auto) 14 % (24-48) Monocytes (%) (Auto) 12 % (0-9) Eosinophils (%) (Auto) 0 % (0-3) Basophils (%) (Auto) 0 % (0-3) Neutrophils # (Auto) 6.3 x10^3uL (1.8-7.7) Lymphocytes # (Auto) 1.1 x10^3/uL (1.0-4.8) Monocytes # (Auto) 1.0 x10^3/uL (0.0-1.1) Eosinophils # (Auto) 0.0 x10^3/uL (0.0-0.7) Basophils # (Auto) 0.0 x10^3/uL (0.0-0.2) Sodium Level 140 mmol/L (136-145) Potassium Level 3.3 mmol/L (3.5-5.1) Chloride Level 106 mmol/L (98-107) Carbon Dioxide Level 25 mmol/L (21-32) Anion Gap 9 (6-14) Blood Urea Nitrogen 28 mg/dL (8-26) Creatinine 1.1 mg/dL (0.7-1.3) Estimated GFR (Cockcroft-Gault) 67.0 Glucose Level 112 mg/dL (70-99) Calcium Level 9.0 mg/dL (8.5-10.1) Problem List Problems Medical Problems: (1) Abdominal pain Status: Acute (2) Cholecystitis Status: Acute (3) Gastritis Status: Acute (4) Leukocytosis Status: Acute Assessment/Plan s/p lap gregoria, severe cholecystitis continue drain at DC--FU in clinic in 1 week ID managing abx Problems: JOEY ORTIZ MD 07/30/17 1309: SURGICAL PROGRESS NOTE Assessment/Plan agree with above Problems: RYLIE FINN APRN Jul 30, 2017 12:40 JOEY ORTIZ MD Jul 30, 2017 13:09
== END 2017-07-30 13:23 | disposition home or self-care (01) | DRG 854 ==
LOC: ER 13:58 → 6 SOUTH 18:00
PROVIDERS: ADMIT Internal Medicine; ATTEND Internal Medicine
PROC: BF131ZZ Fluoroscopy of Gallbladder and Bile Ducts using Low Osmolar Contrast (ICD-10-PCS; 2017-07-28)
PROC: 0FT44ZZ Resection of Gallbladder, Percutaneous Endoscopic Approach (ICD-10-PCS; principal; 2017-07-28 07:30)
DX: A41.9 Sepsis, unspecified organism (principal); K81.2 Acute cholecystitis with chronic cholecystitis; I48.0 Paroxysmal atrial fibrillation; J44.9 Chronic obstructive pulmonary disease, unspecified; R13.10 Dysphagia, unspecified; E66.9 Obesity, unspecified; G40.909 Epilepsy, unspecified, not intractable, without status epilepticus; F10.20 Alcohol dependence, uncomplicated; F17.210 Nicotine dependence, cigarettes, uncomplicated; F32.9 Major depressive disorder, single episode, unspecified; I10 Essential (primary) hypertension; I25.10 Atherosclerotic heart disease of native coronary artery without angina pectoris; K21.0 Gastro-esophageal reflux disease with esophagitis; K29.70 Gastritis, unspecified, without bleeding; K52.9 Noninfective gastroenteritis and colitis, unspecified; M85.80 Other specified disorders of bone density and structure, unspecified site; M19.90 Unspecified osteoarthritis, unspecified site; Z87.11 Personal history of peptic ulcer disease; Z82.5 Family history of asthma and other chronic lower respiratory diseases; Z82.49 Family history of ischemic heart disease and other diseases of the circulatory system; Z79.82 Long term (current) use of aspirin; Z79.899 Other long term (current) drug therapy; Z86.19 Personal history of other infectious and parasitic diseases; Z90.49 Acquired absence of other specified parts of digestive tract; Z68.34 Body mass index [BMI] 34.0-34.9, adult
CPT/HCPCS: 36415; 71010; 74177; 74300; 76705; 78226; 80048; 80053; 80061; 80076; 83605; 83690; 83735; 84443; 84484; 85007; 85025; 85610; 87040; 88304; 93005; 93306; 94250; 94640; 94760; 96361; 96374; 96375; A9537; C1769; C9113; J0780; J1100; J1170; J1953; J2270; J2370; J2405; J2543; J2704; J2710; J2805; J3010; J3490; J7030; J7060; J7120; J7620; Q0163; Q9967; S0028; 99285-25; J2001

== ENCOUNTER → 2017-10-20 | Outpatient (CLI) | payer BC, OTHER | END | disposition home or self-care (01) | LOC: SLPLAB 18:25 | DX: G47.33 Obstructive sleep apnea (adult) (pediatric) (principal) | CPT/HCPCS: 95810 ==

== ENCOUNTER → 2017-11-22 | Outpatient (CLI) | payer BC, OTHER | END | disposition home or self-care (01) | LOC: RT 09:41 | DX: G40.209 Localization-related (focal) (partial) symptomatic epilepsy and epileptic syndromes with complex partial seizures, not intractable, without status epilepticus (principal) | CPT/HCPCS: 95816 ==

== ENCOUNTER → 2018-08-09 | Outpatient (CLI) | payer BC, OTHER ==
[~2018-08-09] VITALS: Ht 167.6 cm; Wt 97.5 kg
[2018-08-09] VITALS (9 sets, daily range): BP systolic 110–153; BP diastolic 62–81
[~2018-08-09] MED LIST changes: +AMOX1TAB11 PO; +ASPI-630 PO; +ATOR10TA60 PO; +CARV6.252 PO; +CHOL2000 PO; -CITA20TA5; +CITA20TA6; +CITA20TA6 PO; +CONTRAST GIVEN. MC PRN; +DIVA-53; +DIVA-53 PO; -DIVA500T9; +GABA600T2 PO; +HEPARIN for IV BOLUS 10,000 UNIT/10 ML VIAL. IART ONE; +HEPARIN for IV BOLUS 10,000 UNIT/10 ML VIAL. IV ONE; +HEPARIN for IV BOLUS 10,000 UNIT/10 ML VIAL. ONE; +HYDR-2145; -HYDR-2762; +HYDR-2765; -HYDR25TA9; +IODIXANOL 320 MG/ML 100 ML VIAL. IART ONE; +IODIXANOL 320 MG/ML 100 ML VIAL. ONE; +LEVE500T56 PO; +LIDOCAINE 1% PF 2 ML VIAL. INJ ONE; +LIDOCAINE 1% PF 2 ML VIAL. ONE; -LOSA100T6; +LOSA100T7; +LOSA100T7 PO; +METO25TA4 PO; +MIDAZOLAM HCL/PF 2 MG/2 ML VIAL. IV ONE; +MIDAZOLAM HCL/PF 2 MG/2 ML VIAL. ONE; +NITROGLYCERIN 200 MCG/2 ML SYRINGE FOR CATH/VASC LAB. IART ONE; +NITROGLYCERIN 200 MCG/2 ML SYRINGE FOR CATH/VASC LAB. ONE; +OMEP40CA5 PO; +UMEC1DIS IH; +VENL75CA PO; +VERAPAMIL 5 MG/2 ML VIAL. IART ONE; +VERAPAMIL 5 MG/2 ML VIAL. ONE; +fentaNYL PF VIAL 100 MCG/2 ML VIAL IV ONE; +fentaNYL PF VIAL 100 MCG/2 ML VIAL ONE
[2018-08-09 08:58] LABS: HEMATOCRIT 40.7 % (39.0-53.0); HEMOGLOBIN 14.3 g/dL (13.0-17.5); RED BLOOD COUNT 4.57 x10^6/uL (4.30-5.70); RED CELL DISTRIBUTION WIDTH 12.8 % (11.5-14.5); WHITE BLOOD COUNT 8.5 x10^3/uL (4.0-11.0)
[2018-08-09 09:12] LABS: PROTHROMBIN TIME PATIENT 13.4 SEC (11.7-14.0)
[2018-08-09 09:21] LABS: CALCIUM 9.6 mg/dL (8.5-10.1); CREATININE 1.2 mg/dL (0.7-1.3); GFR 60.4; POTASSIUM 3.8 mmol/L (3.5-5.1)
--- NOTE | 2018-08-09 12:22 | CARD ---
MR#: [id number] Date of Study: 08/09/2018 Ordering Physician: MICHAEL TERRY, Referring Physician: MICHAEL TERRY, Tech: RT Janessa (R) KATHRINE APPROVED REPORT Technologist: RT Janessa (R) KATHRINE Nurse: JAMES CHRISTENSEN RN Procedure(s) performed: MODERATE SEDATION 40 MINS LHC, Coronary angiography, iFR of the RCA HISTORY The patient is a 67 year-old male with a history of : hypertension, dyslipidemia. INDICATION The indication(s) include : dyspnea. PROCEDURE NARRATIVE INFORMED CONSENT: After explaining the risks and benefits of the procedure and alternatives, informed consent was obtained. The patient was brought electively to the cardiac catheterization lab. A timeout was performed confi rming the patient's name, date of , procedure, and site of procedure. All necessary personnel w ere wearing the appropriate protective equipment and radiation monitor devices. (See nursing notes for medications administered). ACCESS: The right wrist was sterilely prepped and draped in the usual fashion. The right wrist was infiltrat ed with 1 mL of 2% lidocaine for subcutaneous anesthesia. A 6 Romansh Terumo glide sheath was inserte d into the right radial artery without difficulty. CORONARY ANGIOGRAPHY: Right and left coronary angiography was performed using a 6Fr TIG 4.0 catheter. Left ventricular en d diastolic pressure was obtained with a pigtail catheter and pullback was performed after left ventr iculography. All catheter exchanges and advancements were performed over a guidewire. FINDINGS: HEMODYNAMICS: LVEDP10 mm Hg No gradient on LV to aortic pullback. AO: 128/78 CORONARY ANGIOGRAPHY: LM is a large caliber vessel with normal angiographic appearance. LAD is a large caliber vessel with normal angiographic appearance. D1 is a moderate caliber vessel with normal angiographic apeparance. LCx is a moderate caliber non-dominant vessel with normal angiographic appearance. OM1 is a moderate caliber vessel with normal angiographic appearance. RCA is a large caliber dominant vessel with heavy adventitial calcification and focal eccentric calci fied plaque of 70%. RPDA and RPL are small caliber vessels with normal angiographic appearance. INTERVENTIONAL TECHNIQUE: Due to the intermediate lesion, lack of angina, a physiologic study was completed to assess for signi ficance. Heparin weight based bolus dosing was used to achieve and maintain an ACT > 200. Through a 6 Fr JR4 guide catheter, a 0.014'' Pressure wire was advanced to the distal RCA after appropriate ashok lization and the iFR was measured at 0.94. A pullback confirmed appropriate normalization. CLOSURE: At case completion the right radial sheath was removed and a Terumo radial band was applied with 13 m l of air. COMPLICATIONS: The patient tolerated the procedure well and there were no immediate complications. Conclusion 1. Normal left sided filling pressures. 2. One vessel CAD involving the RCA with negative iFR at 0.94 Recommendations Aggressive Medical Therapy Weight Loss Reduction Program Signed by : Michael Terry, Electronically Approved : 08/09/2018 12:21:25
== END | disposition home or self-care (01) ==
LOC: CCL 08:17
PROVIDERS: ATTEND Internal Medicine Cardiovascular Disease
DX: I25.10 Atherosclerotic heart disease of native coronary artery without angina pectoris (principal); E78.5 Hyperlipidemia, unspecified; I10 Essential (primary) hypertension; J44.9 Chronic obstructive pulmonary disease, unspecified; K21.9 Gastro-esophageal reflux disease without esophagitis; F32.9 Major depressive disorder, single episode, unspecified; E66.9 Obesity, unspecified; Z98.890 Other specified postprocedural states; Z79.01 Long term (current) use of anticoagulants; Z79.899 Other long term (current) drug therapy; Z79.82 Long term (current) use of aspirin
CPT/HCPCS: 36415; 80048; 85027; 85610; 93458; 93571; 99152; 99153; C1769; C1887; C1892; J1644; J2250; J3010; J3490

== ENCOUNTER 2018-08-28 15:12 | Emergency (ER) | payer BC, OTHER ==
[~2018-08-28] VITALS: Ht 167.6 cm; Wt 97.1 kg
[~2018-08-28 15:12] MED LIST changes: +CARV6.2511 PO; -CARV6.252 PO; -CONTRAST GIVEN. MC PRN; -HEPARIN for IV BOLUS 10,000 UNIT/10 ML VIAL. IART ONE; -HEPARIN for IV BOLUS 10,000 UNIT/10 ML VIAL. IV ONE; -HEPARIN for IV BOLUS 10,000 UNIT/10 ML VIAL. ONE; -IODIXANOL 320 MG/ML 100 ML VIAL. IART ONE; -IODIXANOL 320 MG/ML 100 ML VIAL. ONE; -LIDOCAINE 1% PF 2 ML VIAL. INJ ONE; -LIDOCAINE 1% PF 2 ML VIAL. ONE; +LOSA100T14; +LOSA100T14 PO; -LOSA100T7; -LOSA100T7 PO; -MIDAZOLAM HCL/PF 2 MG/2 ML VIAL. IV ONE; -MIDAZOLAM HCL/PF 2 MG/2 ML VIAL. ONE; -NITROGLYCERIN 200 MCG/2 ML SYRINGE FOR CATH/VASC LAB. IART ONE; -NITROGLYCERIN 200 MCG/2 ML SYRINGE FOR CATH/VASC LAB. ONE; -VERAPAMIL 5 MG/2 ML VIAL. IART ONE; -VERAPAMIL 5 MG/2 ML VIAL. ONE; -fentaNYL PF VIAL 100 MCG/2 ML VIAL IV ONE; -fentaNYL PF VIAL 100 MCG/2 ML VIAL ONE
[2018-08-28 15:16] VITALS: BP 158/96
--- NOTE | 2018-08-28 15:46 | PHYS DOC ---
Past Medical History Past Medical History: Depression, Hypertension, Seizure, Other Additional Past Medical Histor: tremors Past Surgical History: Appendectomy, Cholecystectomy, Other Additional Past Surgical Histo: R KNEE ARTHRO,R LEG Alcohol Use: Heavy Drug Use: None Adult General Chief Complaint Chief Complaint: DIZZY/LIGHT HEADED HPI HPI Patient is a 67 year old M WHO P/W CC OF not feeling right since increasing doses of Keppra. He says that he feels something is not right in between his ears like in his brain he tells me. He says he feels like he is about to have a seizure but he doesn't actually have one. He says he occasionally feels shaky and just feels a little bit dizzy this is all happened since his Keppra was increased from 500-1000 over the past few days he is to be on Depakote that worked pretty well but it was apparently discontinued in the setting of a recent gallbladder surgery sometime in the last 2 years she does not recall the exact details. Patient has no other focal symptoms no chest pain or shortness of breath no fever no cough no dysuria nothing else. Review of Systems Review of Systems Constitutional: Denies fever or chills [] Eyes: Denies change in visual acuity, redness, or eye pain [] HENT: Denies nasal congestion or sore throat [] Respiratory: Denies cough or shortness of breath [] Cardiovascular: No additional information not addressed in HPI [] GI: Denies abdominal pain, nausea, vomiting, bloody stools or diarrhea [] : Denies dysuria or hematuria [] Musculoskeletal: Denies back pain or joint pain [] Integument: Denies rash or skin lesions [] Neurologic: Endocrine: Denies polyuria or polydipsia [] All other systems were reviewed and found to be within normal limits, except as documented in this note. Allergies Allergies Allergies Coded Allergies Type Severity Reaction Last Updated Verified No Known Drug Allergies 07/28/17 No Physical Exam Physical Exam Constitutional: Well developed, well nourished, no acute distress, non-toxic appearance. [] HENT: Normocephalic, atraumatic, bilateral external ears normal, oropharynx moist, no oral exudates, nose normal. [] Eyes: PERRLA, EOMI, conjunctiva normal, no discharge. [] Neck: Normal range of motion, no tenderness, supple, no stridor. [] Cardiovascular:Heart rate regular rhythm, no murmur [] Lungs & Thorax: Bilateral breath sounds clear to auscultation [] Abdomen: Bowel sounds normal, soft, no tenderness, no masses, no pulsatile masses. [] Skin: Warm, dry, no erythema, no rash. [] Back: No tenderness, no CVA tenderness. [] Extremities: No tenderness, no cyanosis, no clubbing, ROM intact, no edema. [] Neurologic: Alert and oriented X 3, normal motor function, normal sensory function, no focal deficits noted. [] Psychologic: Affect normal, judgement normal, mood normal. [] Current Patient Data Vital Signs Vital Signs Date Time Temp Pulse Resp B/P (MAP) Pulse Ox O2 Delivery O2 Flow Rate FiO2 08/28/18 15:16 98.2 79 22 158/96 (116) 99 Room Air 98.2 Lab Values Laboratory Tests Test 08/28/18 15:28 White Blood Count 8.0 x10^3/uL (4.0-11.0) Red Blood Count 4.49 x10^6/uL (4.30-5.70) Hemoglobin 13.9 g/dL (13.0-17.5) Hematocrit 40.4 % (39.0-53.0) Mean Corpuscular Volume 90 fL (79-100) Mean Corpuscular Hemoglobin 31 pg (25-35) Mean Corpuscular Hemoglobin Concent 35 g/dL (31-37) Red Cell Distribution Width 12.8 % (11.5-14.5) Platelet Count 210 x10^3/uL (140-400) Neutrophils (%) (Auto) 73 % (31-73) Lymphocytes (%) (Auto) 18 % (24-48) L Monocytes (%) (Auto) 7 % (0-9) Eosinophils (%) (Auto) 1 % (0-3) Basophils (%) (Auto) 1 % (0-3) Neutrophils # (Auto) 5.9 x10^3uL (1.8-7.7) Lymphocytes # (Auto) 1.5 x10^3/uL (1.0-4.8) Monocytes # (Auto) 0.6 x10^3/uL (0.0-1.1) Eosinophils # (Auto) 0.1 x10^3/uL (0.0-0.7) Basophils # (Auto) 0.1 x10^3/uL (0.0-0.2) Sodium Level 140 mmol/L (136-145) Potassium Level 4.1 mmol/L (3.5-5.1) Chloride Level 101 mmol/L (98-107) Carbon Dioxide Level 28 mmol/L (21-32) Anion Gap 11 (6-14) Blood Urea Nitrogen 17 mg/dL (8-26) Creatinine 1.1 mg/dL (0.7-1.3) Estimated GFR (Cockcroft-Gault) 66.8 BUN/Creatinine Ratio 15 (6-20) Glucose Level 110 mg/dL (70-99) H Calcium Level 9.9 mg/dL (8.5-10.1) Total Bilirubin 0.4 mg/dL (0.2-1.0) Aspartate Amino Transferase (AST) 23 U/L (15-37) Alanine Aminotransferase (ALT) 35 U/L (16-63) Alkaline Phosphatase 126 U/L (46-116) H Total Protein 8.1 g/dL (6.4-8.2) Albumin 4.0 g/dL (3.4-5.0) Albumin/Globulin Ratio 1.0 (1.0-1.7) Laboratory Tests 08/28/18 15:28 Laboratory Tests 18 15:28 EKG EKG [] Interpretation Time: EKG shows a sinus rhythm rate 75 no acute ischemic changes noted interpreted by me time of encounter. Radiology/Procedures Radiology/Procedures [] Course & Med Decision Making Course & Med Decision Making Pertinent Labs and Imaging studies reviewed. (See chart for details) []77-year-old male known seizure disorder presenting with vague sensation of dizziness and just not feeling right inside his head after increasing Her from 500-1000. Patient does have some mild tremor on examination perhaps he is having some Keppra intolerance. He is neurologically intact otherwise I think at this point time he is okay for discharge home he did check some basic lab work and nothing significantly out of the ordinary he is neurologically intact no chest pain as does not sound cardiac at all. Instructed to call his neurologist for further instructions on dosing labs interpeted unrmarkable. Dragon Disclaimer Dragon Disclaimer This electronic medical record was generated, in whole or in part, using a voice recognition dictation system. Departure Departure Impression: Primary Impression: Dizziness Disposition: 01 HOME, SELF-CARE Condition: STABLE Patient Instructions: Dizziness, [id number] POLO COOK MD Aug 28, 2018 15:46
[2018-08-28 15:58] LABS: BASO # 0.1 x10^3/uL (0.0-0.2); BASO % 1 % (0-3); EOS # 0.1 x10^3/uL (0.0-0.7); EOS % 1 % (0-3); HEMATOCRIT 40.4 % (39.0-53.0); HEMOGLOBIN 13.9 g/dL (13.0-17.5); LYMPH # 1.5 x10^3/uL (1.0-4.8); LYMPH % 18 % (24-48); MEAN CORPUSCULAR HEMOGLOBIN 31 pg (25-35); MEAN CORPUSCULAR HGB CONC 35 g/dL (31-37); MEAN CORPUSCULAR VOLUME 90 fL (79-100); MONO # 0.6 x10^3/uL (0.0-1.1); MONO % 7 % (0-9); NEUT # 5.9 x10^3uL (1.8-7.7); NEUT % 73 % (31-73); PLATELET COUNT 210 x10^3/uL (140-400); RED BLOOD COUNT 4.49 x10^6/uL (4.30-5.70); RED CELL DISTRIBUTION WIDTH 12.8 % (11.5-14.5)
[2018-08-28 16:02] LABS: CALCIUM 9.9 mg/dL (8.5-10.1); CREATININE 1.1 mg/dL (0.7-1.3); GFR 66.8; POTASSIUM 4.1 mmol/L (3.5-5.1)
[2018-08-28 16:08] LABS: TOTAL BILIRUBIN 0.4 mg/dL (0.2-1.0); TOTAL PROTEIN 8.1 g/dL (6.4-8.2)
--- NOTE | 2018-08-28 16:59 | EKG ---
[facility] [address] [place] [address] Test Date: 2018-08-28 Test Time: 15:22:35 Pat Name: CLAY MAHER Department: Room: Gender: M Lap Winder: : 1950 Requested By: POLO COOK Order Number: [id number] Reading MD: Saw Smart MD Measurements Intervals Manning Rate: 75 P: -90 SC: 136 QRS: 2 QRSD: 82 T: 41 QT: 368 QTc: 413 Interpretive Statements SINUS RHYTHM VERSUS ECTOPIC ATRIAL RHYTHM LVH NON-SPECIFIC ST/T CHANGES Electronically Signed On 08-29-2018 10:07:03 ROCKET ASSEMBLY OPERATOR by Saw Smart MD
== END 2018-08-28 16:35 | disposition home or self-care (01) ==
LOC: ER 15:12
DX: R42 Dizziness and giddiness (principal); I10 Essential (primary) hypertension; F32.9 Major depressive disorder, single episode, unspecified; F10.20 Alcohol dependence, uncomplicated; Y90.9 Presence of alcohol in blood, level not specified; Z90.89 Acquired absence of other organs; Z90.49 Acquired absence of other specified parts of digestive tract
CPT/HCPCS: 36415; 80053; 85025; 93005; 99284

== ENCOUNTER → 2018-09-20 | Outpatient (CLI) | payer BC, OTHER ==
[2018-08-28 15:16] VITALS: BP 158/96
--- NOTE | 2018-09-20 14:08 | EEG ---
DATE OF SERVICE: 09/20/2018 EEG NUMBER: [id number] performed on 09/20/2018. 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 DESCRIPTION: This is a digital study. Electrodes are placed according to international 10-20 system. Bipolar and referential montages are available. Activation procedures typically include hyperventilation and intermittent photic stimulation. INTERPRETATION: The waking background consists of 9-10 Hz, 50-100 microvolt activity, symmetrically distributed over parietooccipital regions and reactive to eye opening. Hyperventilation and intermittent photic stimulation are noncontributory. Stage 1 sleep is achieved with normal electroencephalogram patterns. IMPRESSION: This electroencephalogram with the patient awake and asleep is within normal limits. There is no focal, paroxysmal, or epileptiform activity. Thank you for letting us help with the patient's care. KRISTINA RAMIREZ MD DR: TERELL/bogdan JOB#: [id number] / [id number] ZOEY Burris MD
== END | disposition home or self-care (01) ==
LOC: RT 08:45
PROVIDERS: ATTEND Psychiatry & Neurology Neurology with Special Qualifications in Child Neurology
DX: G40.309 Generalized idiopathic epilepsy and epileptic syndromes, not intractable, without status epilepticus (principal)
CPT/HCPCS: 95816

== ENCOUNTER → 2019-04-11 | Outpatient (CLI) | payer BC, OTHER ==
[~2019-04-11] MED LIST changes: -ALEN70TA5; +ALEN70TA6; -GABA600T2 PO; +GABA600T7 PO; +OMEP20CA10; -OMEP20CA9
--- NOTE | 2019-04-11 14:23 | RAD ---
EXAM: Left hip, 2 views. HISTORY: Pain. COMPARISON: None. FINDINGS: 2 views left hip are obtained. There is no fracture, dislocation or subluxation. There is mild marginal femoral head spurring. IMPRESSION: Mild osteoarthritis of the left hip. Electronically signed by: Kelly Pacheco MD (04/11/2019 2:20 PM) [facility]
== END | disposition home or self-care (01) ==
LOC: RAD 12:29
PROVIDERS: ATTEND Internal Medicine
DX: M16.12 Unilateral primary osteoarthritis, left hip (principal); M76.9 Unspecified enthesopathy, lower limb, excluding foot
CPT/HCPCS: 73502

== ENCOUNTER → 2019-09-29 | Outpatient (CLI) | payer BC, OTHER ==
[~2019-09-29] MED LIST changes: -OMEP20CA10; +OMEP20CA16; +OMEP40CA45 PO; -OMEP40CA5 PO; +REGADENOSON 0.4 MG/5 ML DISP.SYRIN. IV ONE
--- NOTE | 2019-09-29 11:32 | RAD ---
MR#: [id number] Date of Study: 09/29/2019 Ordering Physician: MICAHEL TERRY, Referring Physician: GUERITA ANTUNEZ Tech: CHRIS Zelaya ARRT (R) (N) APPROVED REPORT Test Type: Pharmacological Stress Nurse/Tech: Ladonna Kolb RN Test Indications: CAD Cardiac History: High cholesterol, Hypertension Medications: See Electronic Medical Record Medical History: See Electronic Medical Record Resting ECG: Sinus Bradycardia with 1st degree AV Block Resting Heart Rate: 57 bpm Resting Blood Pressure: 139/81mmHg Pretest Chest Pain: No chest pain Nurse/Tech Notes S1S2, Lungs CTA Consent: The procedure was explained to the patient in lay terms. Informed consent was witnessed. Dick eout was entered into [employer]. History and Stress Test performed by CHRIS Zelaya ARRT (R) (N) Pharm. Details Pharmacologic stress testing was performed using 0.4mg per 5ml of regadenoson given intravenously ove r 7-10 seconds. Stress Symptoms Dyspnea POST EXERCISE Reason for Termination: Infusion complete Max HR: 71 bpm Max Blood Pressure: 136/81mmHg Blood Pressure response to exercise: Normal blood pressure response during stress. Heart Rate response to exercise: WNL Chest Pain: No. Arrhythmia: No. ST Change: No. INTERPRETATION Stress EKG Conclusion: Baseline EKG showed sinus bradycardia. No ischemic changes at peak stress. N o arrhythmias. Imaging Protocol IMAGE PROTOCOL: Rest Tc-99m/stress Tc-99m 1 day Rest: Stress: Viability: Radiopharm.Tc99m YzeuaqnutSj88x Sestamibi Hqxg24fIf 33mCi Img Date 09/29/2019 09/29/2019 Inj-Img Orpt23nvu. 45min. Rest Admin Site:IV - Right ForearmAdministrator:CHRIS Zelaya ARRT (R)(N) Stress Admin Site: IV - Right ForearmAdministrator: CHRIS Zelaya ARRT (Eric)(N) STRESS DATA End Diast. Vol.75.0mlAv. Heart Rate61.0bpm End Syst. Vol.15.0mlCO Index BSA0.0L/min Myocardial Eqpf473.0gEject. Mdujdsuo65.0% Stress Rates Pk. Fill Rate2.02EDV/secLVtime Pk. Fill 194.10msec Pk. Empty Rate4.31ESV/secLVtime Pk. Mwhwh473.69msec /3 Pk. Fill1.24EDV/sec Stress Scores Regional WT0.00Summed WT0.00 Regional WM0.00Summed WM0.00 Study quality was good. Left Ventricular size was Normal at Rest and Stress. Lung uptake was . Left Ventricular ejection fraction is 80%. The rest and stress images show normal perfusion, normal contraction and thickening. LV Perf. Quant 17 Seg. SSS0.00 17 Seg. SRS0.00 17 Seg. SDS0.00 Stress Defect Extent (% LAD)0.00Rest Defect Extent (% LAD)0.00Rev. Defect Extent (% LAD)0.00 Stress Defect Extent (% LCX) 0.00Rest Defect Extent (% LCX)0.00Rev. Defect Extent (% LCX)0.00 Stress Defect Extent (% RCA)0.00Rest Defect Extent (% RCA)0.00Rev. Defect Extent (% RCA)0.00 Stress Defect Extent (% HAYES)0.00Rest Defect Extent (% HAYES)0.00Rev. Defect Extent (% HAYES)0.00 Conclusion 1. Regadenoson cardioisotope stress test did not show any evidence of ischemia or infarct. 2. Normal left ventricular systolic function with ejection fraction calculated at 80%. 3. Low risk for cardiac events. Signed by : Felice Alvarado, Electronically Approved : 09/29/2019 11:31:27
== END | disposition home or self-care (01) ==
LOC: NM 07:24
PROVIDERS: ATTEND Internal Medicine Cardiovascular Disease
DX: I44.0 Atrioventricular block, first degree (principal); I25.10 Atherosclerotic heart disease of native coronary artery without angina pectoris; E78.00 Pure hypercholesterolemia, unspecified; I10 Essential (primary) hypertension
CPT/HCPCS: 78452; 93017; A9500; J2785

== ENCOUNTER → 2020-10-23 | Outpatient (CLI) | payer BC, OTHER ==
[~2020-10-23] MED LIST changes: -ALEN70TA6; +ALEN70TA71; -REGADENOSON 0.4 MG/5 ML DISP.SYRIN. IV ONE
--- NOTE | 2020-10-23 15:36 | RAD ---
Examination: CT chest without contrast HISTORY: History of lung nodules COMPARISON: 08/22/2018 TECHNIQUE: Axial CT images of chest were performed without contrast. Coronal and sagittal reformats a re performed Exposure: One or more of the following individualized dose reduction techniques were utilized for thi s examination: 1. Automated exposure control 2. Adjustment of the mA and/or kV according to patient size 3. Use of iterative reconstruction technique FINDINGS: The central airways are patent. Coronary artery calcifications identified. Neurological significant m ediastinal lymphadenopathy. Small subcentimeter nodules identified in the bilateral lungs with unchan ged 3 mm nodule identified in the right lower lobe of the lung. Small subcentimeter cysts identified in the liver similar to prior exam. The adrenals grossly appears unremarkable Moderate degenerative changes thoracic spine. Multiple compression changes of thoracic vertebral bodi es similar to prior exam. IMPRESSION: 1. Unchanged pulmonary nodules with the largest measuring 3 mm. Electronically signed by: Emerson Almonte MD (10/23/2020 3:33 PM) [id number]
== END ==
LOC: CT 11:05
PROVIDERS: ATTEND Internal Medicine
DX: R91.8 Other nonspecific abnormal finding of lung field (principal)
CPT/HCPCS: 71250

== ENCOUNTER → 2020-12-10 | Outpatient (CLI) | payer BC, OTHER ==
--- NOTE | 2020-12-10 14:41 | CARD ---
MR#: [id number] Date of Study: 12/10/2020 Ordering Physician: MICHAEL SMART, Referring Physician: MICHAEL SMART, Tech: Annie Dawn, [facility] APPROVED REPORT EXAM: Two-dimensional and M-mode echocardiogram with Doppler and color Doppler. Other Information Quality : FairHR: 74bpm INDICATION Dyspnea RISK FACTORS Hypertension Hyperlipidemia 2D DIMENSIONS RVDd3.3 (2.9-3.5cm)Left Atrium(2D)4.3 (1.6-4.0cm) IVSd1.2 (0.7-1.1cm)Aortic Root(2D)3.3 (2.0-3.7cm) LVDd5.8 (3.9-5.9cm)LVOT Diameter2.1 (1.8-2.4cm) PWd1.3 (0.7-1.1cm)LVDs3.2 (2.5-4.0cm) FS (%) 43.9 %SV122.9 ml LVEF(%)74.4 (>50%) Aortic Valve AoV Peak Werner.108.3cm/sAoV VTI28.2cm AO Peak GR.4.7mmHgLVOT Peak Werner.105.4cm/s LVOT VTI 27.93cmAO Mean GR.3mmHg CARMEN (VMAX)2.46jv4JOK (VTI)3.32cm2 Mitral Valve MV E Qxwcgynh41.0cm/sMV DECEL [id number] MV A Cujiirqm10.0cm/sMV XHL82aq E/A Ratio4.0MVA (PHT)3.73cm2 TDI E/Lateral E'7.0E/Medial E'11.0 Pulmonary Valve PV Peak Bkrypmxe60.7cm/sPV Peak Grad.3mmHg Tricuspid Valve TR P. Pditttqw817es/sRAP CVBLUHQO9iiRt TR Peak Gr.60niHcTFHJ17orAn LEFT VENTRICLE The left ventricle is normal size. There is mild concentric left ventricular hypertrophy. The left ve ntricular systolic function is normal and the ejection fraction is within normal range. The Ejection Fraction is 50-55%. Wall motion consistent with conduction abnormality. Otherwise, grossly normal wal l motion. Tissue Doppler imaging reveals moderate left ventricular diastolic dysfunction. RIGHT VENTRICLE The right ventricle is borderline dilated. There is normal right ventricular wall thickness. The righ t ventricular systolic function is normal. ATRIA The left atrium is mildly dilated. The right atrium size is normal. The interatrial septum is intact with no evidence for an atrial septal defect or patent foramen ovale as noted on 2-D or Doppler imagi ng. AORTIC VALVE The aortic valve is thickened but opens well. Doppler and Color Flow revealed no significant aortic r egurgitation. Calculated aortic valve area is 3.56 cm2 with maximum pressure gradient of 5 mmHg and m russell pressure gradient of 3 mmHg. There is no significant aortic valvular stenosis. MITRAL VALVE The mitral valve is normal in structure and function. There is no evidence of mitral valve prolapse. There is no mitral valve stenosis. Doppler and Color-flow revealed trace mitral regurgitation. TRICUSPID VALVE The tricuspid valve is normal in structure and function. Doppler and Color Flow revealed trace tricus pid regurgitation with an estimated PAP of 30 mmHg. There is no tricuspid valve stenosis. PULMONIC VALVE The pulmonic valve is not well visualized. Doppler and Color Flow revealed trace pulmonic valvular re gurgitation. There is no pulmonic valvular stenosis. GREAT VESSELS The aortic root is normal in size. The IVC is normal in size and collapses >50% with inspiration. PERICARDIAL EFFUSION There is no evidence of significant pericardial effusion. Critical Notification Critical Value: No <Conclusion> The left ventricular systolic function is normal and the ejection fraction is within normal range. Th e Ejection Fraction is 50-55%. Wall motion consistent with conduction abnormality. Otherwise, grossly normal wall motion. Signed by : Michael Smart, Electronically Approved : 12/10/2020 14:41:37
== END ==
LOC: ECHO 08:37
PROVIDERS: ATTEND Internal Medicine Cardiovascular Disease
DX: I51.7 Cardiomegaly (principal); R06.00 Dyspnea, unspecified
CPT/HCPCS: 93306

== ENCOUNTER → 2020-12-31 | Outpatient (CLI) | payer BC, OTHER ==
--- NOTE | 2020-12-31 15:38 | RAD ---
EXAM: Bilateral lower extremity arterial Doppler sonogram. HISTORY: Pain. TECHNIQUE: Dave scale and color Doppler sonographic imaging of the arteries with spectral analysis wa s performed. COMPARISON: None. FINDINGS: There are biphasic and triphasic waveforms and normal peak systolic velocities throughout t he lower extremity arteries. The peroneal arteries are not seen. IMPRESSION: No Doppler evidence of hemodynamically significant stenosis or occlusion involving the lo wer extremity arteries, with exception of the peroneal arteries which cannot be assessed due to nonvi sualization. Electronically signed by: Kelly Pacheco MD (12/31/2020 3:36 PM) [id number]
== END ==
LOC: US 14:27
PROVIDERS: ATTEND Internal Medicine Cardiovascular Disease
DX: M79.604 Pain in right leg (principal); M79.605 Pain in left leg
CPT/HCPCS: 93925

== ENCOUNTER → 2021-09-22 | Outpatient (CLI) | payer MEDICARE, OTHER ==
[~2021-09-22] MED LIST changes: -OMEP40CA45 PO; +OMEP40CA7 PO
--- NOTE | 2021-09-22 11:45 | KCIC ---
EXAM: Chest, 2 views. HISTORY: COPD. Lung nodule. COMPARISON: CT dated 10/23/2020. FINDINGS: A frontal view of the chest is obtained. There is no infiltrate, pleural effusion or pneumo thorax. There is emphysema. There is a stable cardiac silhouette. IMPRESSION: 1. Emphysema. 2. No acute pulmonary finding. 3. Note is made that tiny pulmonary nodules described on the prior comparison CT are not seen radiogr aphically. Electronically signed by: Kelly Pacheco MD (09/22/2021 11:43 AM) [id number]
== END ==
LOC: KCIC 11:04
PROVIDERS: ATTEND Internal Medicine Pulmonary Disease
DX: J43.9 Emphysema, unspecified (principal); R91.8 Other nonspecific abnormal finding of lung field
CPT/HCPCS: 71046

== ENCOUNTER → 2021-10-14 | Outpatient (CLI) | payer MEDICARE, OTHER ==
--- NOTE | 2021-10-14 10:13 | KCIC ---
EXAM: XR KNEE_AP BILAT STANDING 10/14/2021 9:04 AM CLINICAL INDICATION: Primary bilateral osteoarthritis. Chronic knee pain COMPARISON: None TECHNIQUE: Standing AP view of the knee FINDINGS: Right knee: There is a screw in the right mesial medial tibial plateau. No acute fracture or malalign ment. There is moderate medial and mild lateral compartment narrowing with chondrocalcinosis bilatera lly. No significant osteophyte formation. Vascular calcifications are seen in the thighs. IMPRESSION: Mild to moderate degenerative joint disease of the knees. Electronically signed by: Pauline Granda MD (10/14/2021 10:11 AM) [id number]
== END ==
LOC: KCIC 08:56
PROVIDERS: ATTEND Internal Medicine
DX: M17.0 Bilateral primary osteoarthritis of knee (principal); M11.262 Other chondrocalcinosis, left knee; M11.261 Other chondrocalcinosis, right knee; M25.861 Other specified joint disorders, right knee; M25.862 Other specified joint disorders, left knee
CPT/HCPCS: 73565

== ENCOUNTER → 2021-12-30 | Outpatient (CLI) | payer MEDICARE, OTHER ==
--- NOTE | 2021-12-30 11:03 | KCIC ---
EXAM: CT CHEST WITHOUT CONTRAST (LDCT LUNG CANCER SCREENING) 12/30/2021. HISTORY: Risk factors for pulmonary malignancy. 35 pack year tobacco history. Dependence. Nicotine dependence TECHNIQUE: CT of the chest was performed without intravenous contrast using a low-dose lung screening protocol. Findings analysis is based on ACR Lung-RADS v1.1. *One or more of the following individual ized dose reduction techniques were utilized for this examination: 1. Automated exposure control. 2. Adjustment of the mA and/or kV according to patient size. 3. Use of iterative reconstruction technique. RADIATION DOSE: DLP: 504.7 mGy*cm CTDI VOL(per sequence): 15.9 mGy COMPARISON: 10/23/2020. FINDINGS: Heart size upper limits of normal. No pericardial effusion. Coronary artery calcifications. Ectasia o f the ascending thoracic aorta measuring 3.9 cm transverse. No mediastinal, hilar or axillary lymphad enopathy. Suspected small low-density focus at the left lobe thyroid gland, unchanged. Central airways are patent. Diffuse bronchial wall thickening. There are a few scattered calcified gr anuloma. Noncalcified pulmonary nodule in the right lower lobe on image 133 measures 3 mm. There is a lso a tiny subpleural nodule along the anterior margin of the right major fissure on image 148 that m easures 3 mm, unchanged. No new parenchymal nodule or mass. No pleural effusion. There is some mild i rregular linear peripheral opacities bilaterally, unchanged. A small nodule along the anterior aspect of the right minor fissure on image 162 measures 4 mm, stable. Images of the upper abdomen show no significant abnormality. Gallbladder surgically absent. Low-densi ty focus at the midpole left kidney, likely cyst. No acute bony abnormality. Multilevel spondylosis. There are compression deformities of multiple thoracic vertebral bodies, unchanged. IMPRESSION: 1. No significant interval change in right-sided pulmonary nodules. Continued follow-up imaging to en sure stability. Lung RADS category 2. Recommend follow-up imaging in one year. 2. Coronary artery calcifications and mild ectasia of the ascending thoracic aorta. 3. Multiple remote thoracic wedge compression fractures, unchanged. Electronically signed by: Madhav Matta MD (12/30/2021 11:00 AM) [facility]
== END ==
LOC: KCIC CT 09:17
PROVIDERS: ATTEND Internal Medicine Pulmonary Disease
DX: Z12.2 Encounter for screening for malignant neoplasm of respiratory organs (principal); R91.8 Other nonspecific abnormal finding of lung field; I25.10 Atherosclerotic heart disease of native coronary artery without angina pectoris; I77.810 Thoracic aortic ectasia; M48.54XA Collapsed vertebra, not elsewhere classified, thoracic region, initial encounter for fracture; Z87.891 Personal history of nicotine dependence
CPT/HCPCS: 71271